=== PATIENT | female | born 1970 | race Caucasian/White ===

== ENCOUNTER 2021-06-01 17:01 | Emergency (ER) | payer BC, SELFPAY ==
[2021-06-01 17:03] VITALS: BP 152/85; PULSE 154; RESP 16; TEMP 36.4; O2SAT 96; BMI 29.5
--- NOTE | 2021-06-01 17:40 | CT_ITS ---
EXAMINATION : Head CT w/out contrast HISTORY : injury COMPARISON : None. TECHNIQUE : Multiple contiguous axial images were obtained from the skull base to the vertex without intravenous contrast. A radiation dose optimization technique was used for this scan. FINDINGS : The ventricles and sulci are normal in size. There is no evidence for acute intracranial hemorrhage, mass effect, or midline shift. There is no extra-axial fluid collection. There is normal montes de oca-white differentiation, without CT evidence of acute ischemia or infarct. The skull base and calvarium are unremarkable. The orbits are unremarkable. The paranasal sinuses are clear. The mastoid air cells are well-aerated. The soft tissues are unremarkable. CT/Brain/Head without Contrast IMPRESSION: No acute intracranial abnormality. Electronically Signed: Elie Bolaños MD at 18:02 EST Tel , Service support ,
--- NOTE | 2021-06-01 17:40 | EX.ED.DYSGE1 ---
HPI History of Present Illness Chief Complaint: Head Injury Informant: patient and EMS Onset/Context/Timing Onset: Today Narrative Narrative: Patient reportedly fell down 4-5 steps today injuring her head. She states she was carrying laundry and the dog hit her causing her to fall. She apparently was argumentative and combative with family and they were not sure if is because of head injury. She apparently does have a history of alcohol abuse and does admit to two drinks today. She states that not much for her when she normally drinks. She is irritated but states she is just upset with family for making her come in. She denies loss of consciousness. No vomiting. PFSH PFS Medical History Alcohol abuse Medical History no medical history Home Medications escitalopram oxalate [Lexapro] 10 mg PO DAILY 06/01/21 [History Last Taken Unknown] Allergy/AdvReac Type Severity Reaction Status Date / Time CATS Allergy Hives Uncoded 06/01/21 17:01 Surgical History no surgical history Social History Smoking Status: Never smoker ROS ROS ED Constitutional Constitutional ED: Denies chills or fever(s) Eyes Eyes: Denies change in vision ENT ENT ED: Denies rhinorrhea or sore throat Cardiovascular Cardiovascular: Reports racing heartbeat; Denies chest pain or palpitations Respiratory/Chest Respiratory/Chest: Denies cough or dyspnea Gastrointestinal Gastrointestinal: Denies abdominal pain or vomiting Musculoskeletal Musculoskeletal: Denies back pain or neck pain Neurologic Neurologic: Denies headache(s) Allergic/Immunologic Allergic/Immunologic ED: Denies urticaria EXAM Physical Exam Const Vital Signs: 06/01/21 17:03 06/01/21 17:07 Temperature 97.6 F L Temperature Source Temporal Pulse Rate 154 H Respiratory Rate 16 Respiratory Effort Normal Non-Labored Respiratory Pattern Normal Blood Pressure 152/85 H Blood Pressure Mean 107 Pulse Ox 96 Oxygen Delivery Method Room Air Positive well nourished and well developed General Appearance ED: well developed HEENT Reports moist mucous membranes Eyes PERRL and EOMs intact bilaterally Neck supple Chest Wall inspection of chest normal and palpation of chest normal Resp normal respiratory effort and clear to auscultation bilaterally Cardio Rate: tachycardic and other Other Details: Heart rate 123 when I enter the room. GI non-tender Palpation: soft Extremity normal to inspection Neuro oriented x3 and no sensory deficits noted Sensorium / Orientation: alert Motor Exam: strength 5/5 throughout Psych Mood & Affect: anxious Skin no rashes or lesions noted MDM MDM MDM Narrative Medical decision making narrative: Head CT obtained. Radiography Diagnostic Testing: Clinical Impression(s) from Imaging Studies Brain CT 06/01/21 17:40 IMPRESSION: No acute intracranial abnormality. Electronically Signed: Elie Bolaños MD at 18:02 EST Tel , Service support , Treatment and Re-Evaluation Comments:: Head CT reveals no acute abnormality. Patient's family is here with her. She we discharged home with family. Instructions for closed head injury provided. Return instructions given. Discharge Plan Triage Chief Complaint: Head Injury ED Provider: Raquel Angel Dx/Rx/DC Orders Clinical Impression: Fall, Closed head injury Instructions: ED Head Injury (Adult) Prescriptions: No Action escitalopram oxalate [Lexapro] 10 mg Tablet 10 mg PO DAILY RF: 0 Primary Care Provider: Juan Bird Referrals: Juan Bird MD [Primary Care Provider] - 1 Week Disposition Disposition: Home, Self Care
[2021-06-01 18:37] VITALS: BP 145/81; PULSE 112; RESP 17; O2SAT 98
== END 2021-06-01 18:39 | disposition home or self-care (01) ==
PROVIDERS: Emergency Provider Emergency Medicine; PCP Family Medicine
DX: S09.90XA Unspecified injury of head, initial encounter (principal); W10.9XXA Fall (on) (from) unspecified stairs and steps, initial encounter; Z79.899 Other long term (current) drug therapy
CPT/HCPCS: 70450; 99285; A4216

== ENCOUNTER 2021-09-27 22:02 | Emergency (ER) | payer OTHER, SELFPAY ==
[2021-09-27 22:03] VITALS: BP 131/86; PULSE 151; RESP 18; TEMP 36.6; O2SAT 99; BMI 26.5
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
[2021-09-27 22:32] LABS: Absolute Lymphocyte Count 1.95 X10^3/uL (0.83-4.51); Absolute Neutrophil Count 2.9 X10^3/uL (2.0-7.7); Basophil# 0.06 X10^3/uL; Eosinophil# 0.09 X10^3/uL; Eosinophils% 1.6 % (0-5); Hematocrit 32.4 % (37-47); Hemoglobin 9.4 g/dL (12.0-15.0); Lymphocyte # 1.95 X10^3/ul (0.83-4.51); Lymphocyte % 34.1 % (19-41); Mean Corpuscular Hgb 19.6 pg (27.0-32.0); Mean Corpuscular Volume 67.5 fL (81-99); Monocyte# 0.68 X10^3/uL; Monocyte% 11.9 % (0-10); NRBC Flagged by Analyzer 0 % (0-5); Neutrophil # 2.93 X10^3/uL (2.7-7.7); Neutrophil % 51.2 % (47-70); POSITIVE MORPHOLOGY YES; Platelet Count 332 K/mm3 (150-450); RBC Distribution Width CV 22.3 % (11.6-14.6); RBC Distribution Width SD 53.4 fl (35.1-43.9); White Blood Count 5.7 K/mm3 (4.4-11.0)
[2021-09-27 22:35] LABS: Differential Indicated SCAN CRITERIA MET
[2021-09-27 22:45] LABS: Anion Gap 12 (5-15); BUN 5 mg/dL (7-18); BUN/Creat Ratio 4.9 RATIO (10-20); Calcium,Total 8.6 mg/dL (8.5-10.1); Chloride 109 mmol/L (98-107); Creatinine, Serum 1.03 mg/dL (0.55-1.02); EST Glomerular Filtration Rate 60 mL/min (>60); Est Glom Filt Rate - Afr Amer 73 mL/min (>60); Estimated Creatinine Clearance 54.05 ml/min; Glucose 139 mg/dL (74-106); Potassium 3.7 mmol/L (3.5-5.1); Sodium Level 141 mmol/L (136-145)
[2021-09-27 22:46] LABS: Amphetamine Urine VISTA NEGATIVE (<1000 ng/mL); Barbiturate Urine VISTA NEGATIVE (< 200 ng/mL); Benzodiazepine Urine VISTA NEGATIVE (< 200 ng/mL); Cocaine Urine VISTA NEGATIVE (< 300 ng/mL); Ecstacy Urine VISTA NEGATIVE (< 500 ng/mL); Methadone Urine VISTA NEGATIVE (< 300 ng/mL); PCP Urine VISTA NEGATIVE (< 25 ng/mL); THC Urine VISTA POSITIVE (< 50 ng/mL); Vista UDS pH Range 4
[2021-09-27 22:54] LABS: Internal QC Validated? YES +Cl - CLEAR BKGD; Pregnancy, Serum, hCG Quali. NEGATIVE Negative
[2021-09-27 22:57] LABS: Anisocytosis 1+; Differential Comment SCANNED
[2021-09-28] VITALS (8 sets, daily range): BP systolic 144–164; BP diastolic 90–100; PULSE 109–117; RESP 15–24; TEMP 37.1; O2SAT 95–99
[2021-09-28] MEDS: Mag Hydrox/Al Hydrox/Simeth 30 ML UDC PO (00:32)
[2021-09-28] MEDS: Ibuprofen 600 MG Tablet PO (03:40)
[2021-09-28] MEDS: LORazepam 1 MG Tablet PO ×2 (04:30→08:11)
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
== END 2021-09-28 11:48 | disposition home or self-care (01) ==
PROVIDERS: Emergency Medicine; Emergency Provider Emergency Medicine; PCP Family Medicine; Visit Provider Emergency Medicine
DX: F10.229 Alcohol dependence with intoxication, unspecified (principal); D50.9 Iron deficiency anemia, unspecified; Y90.0 Blood alcohol level of less than 20 mg/100 ml
CPT/HCPCS: 80048; 80307; 82077; 84703; 85025; 99283

== ENCOUNTER 2021-10-22 15:30 | Outpatient (RCR) | payer OTHER, SELFPAY ==
--- NOTE | 2021-10-06 15:37 | HP.PTEVAL ---
Patient's Visit Information CONSTANCE BIRMINGHAM is a 51 year old F referred to Physical Therapy by Dr. Juan Bird MD with a diagnosis of B shoulder pain. Date of Evaluation: 10/06/21 Physical Therapist: José Miguel Gallo, PT, ATC - Visit Plan Frequency: 2-3x /Week Duration: 4 Weeks Plan: postural edu, RRIS, DTR, scap stab ex's, and HEP. May trial C Tx if no better next Rx - Subjective Pt reports her L shoulder has been sore for approximately 6 weeks. Pt reports she was arm wrestling at that time when she experienced severe shoulder pain. Pt notes she has had scoliosis her whole life and have always had L shoulder pain. Pt notes she is R hand dominant. Pt reports she felt a popping sensation is her L shoulder when she injured her shoulder. Pt denies tingling or numbness in L UE, but does report numbness in her L pinky and ring fingers since experiencing this injury. Pt reports difficulty with sleep at this time secondary to pain. Pt reports her pain is intermittent in nature and no specific movement results in increased pain. 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 L shoulder pain 6/10 at rest, 9/10 when her pain is at its worst: - Pain L shoulder Pain Intensity (Out of 10): 6 Pain Intensity Range: 9 - Objective Neuro: B UE sensation is WNL to light touch. B bicipital reflex= 2/3. Palpation: Pt has a little pain on L shoulder. Sig muscle guarding in upper trap and interscap region. No obvious deformity. ROM: R shoulder flex= 180, abd= 180, ER= 40, IR WNL; L shoulder flex= 180, abd= 180, ER= 0, IR WNL. MMT: B UE's are 5/5 throughout. c/s ROM: Pt is moderately limited with L SB and Rot, and c/s retraction. All other movements are WFL. Repeated movements: RPIS peripheralized sx's into L shoulder and interscap region. RRIS decreased pain. Special tests: pos cervical compression test - Balance/Special Test Scores Quick DASH Score: 40.9075 - Goals Goal 1:: Decrease neck pain x 50% to aid with sleep Goal Time Frame: 4-6 Weeks Goal 2:: Increase c/s retraction ROM x 1 grade to aid with decreasing pain Goal Time Frame: 4-6 Weeks Goal 3:: Decrease interscap radiculopathy x 50% to aid with sleep Goal 4:: I with HEP Goal Time Frame: 4-6 Weeks - Rehabilitation Potential Physical Therapy Diagnosis: Pt has neck pain, sig muscle guarding, and limited c/s ROM secondary to c/s disc derrangement Rehabilitation Potential: Good - Anticipated Interventions Patient/Client Instruction: Educate patient on: Condition, Plan of Care For the Purpose of:: To decrease pain, To increase ROM, To improve muscle performance and motor function Therapeutic Exercise to Include: Strength training, Endurance training, Postural training, Flexibilty training, Active ROM, Scapular Strength/Stabilization For the Purpose of:: To decrease pain, To increase ROM, To improve muscle performance and motor function Cryotherapy (ice pack, ice massage): Yes For the Purpose of:: To decrease pain, To increase ROM, To improve muscle performance and motor function Thank you for the opportunity to evaluate your patient. For Medicare and Medicare HMO plans, please review the plan of care and approve it. It will need to be FAXED BACK to us at [phone] for Medicare purposes. For Medicare only, by signing this I certify the plan of care. Please let me know if there are questions or concerns regarding this plan of care. Physician Signature: Date:
--- NOTE | 2022-02-23 13:17 | HP.PT.NRP ---
CONSTANCE BIRMINGHAM was seen in my office for initial evaluation on 10/06/21. The following Plan of Care was established for this patient: Initial Frequency: 2-3x /Week Initial Duration: 4 Weeks Patient/Client Instruction: Educate patient on: Condition, Plan of Care For the Purpose of:: To decrease pain, To increase ROM, To improve muscle performance and motor function Therapeutic Exercise to Include: Strength training, Endurance training, Postural training, Flexibilty training, Active ROM, Scapular Strength/Stabilization For the Purpose of:: To decrease pain, To increase ROM, To improve muscle performance and motor function Cryotherapy (ice pack, ice massage): Yes For the Purpose of:: To decrease pain, To increase ROM, To improve muscle performance and motor function This patient was last seen in our office . Pertinent comments regarding their Physical therapy will appear below: Pt was treated for B shoulder pain for 5 PT visits through the date of 10/22/21. Pt has not returned through todays date and is discontinued at this time. At this point I will be discontinuing this patient from physical therapy. I would be happy to see this patient again in the future if found appropriate by the physician. Thank you! José Miguel Gallo, PT, ATC Balance/Gait/Functional tests - Balance/Special Test Scores Quick DASH Score: 40.9075
== END 2021-10-22 19:00 | disposition home or self-care (01) ==
LOC: PT 15:30
PROVIDERS: PCP Family Medicine; Referring Provider Family Medicine; Visit Provider Family Medicine
DX: M25.511 Pain in right shoulder (principal); M25.512 Pain in left shoulder
CPT/HCPCS: 97012; 97140; 97161

== ENCOUNTER 2022-02-25 10:51 | Emergency (ER) | payer OTHER, SELFPAY ==
[2022-02-25 10:52] VITALS: BP 146/96; PULSE 103; RESP 18; TEMP 36.3; O2SAT 100; BMI 33.5
--- NOTE | 2022-02-25 12:20 | EDS_ITS ---
HPI History of Present Illness Chief Complaint: Headache Narrative Narrative: Patient with past medical history of migraine headaches presents to the emergency department with a migraine headache that began yesterday. She states she has tried her medication for it including Tylenol and ibuprofen, but she has had nausea and vomiting and right-sided headache that is typical of her previous migraines. She does not see a neurologist, however she states that she has been worked up with head CTs and imaging in June of this year. She currently rates her pain between a 6 and an 8. It was 8 when she came in but may have come down a bit. She states she needs a break from this constant headache. The right side of her head feels tight including her neck. She denies any fevers or chills. She has vomited multiple times without any blood in her emesis. She denies any paresthesias. She endorses photophobia, phonophobia, and smells make it worse. [facility] Medical History (Updated 02/25/22 @ 14:10 by Terence Blanton MD) Alcohol abuse Migraine Allergy/AdvReac Type Severity Reaction Status Date / Time bee venom protein (honey bee) Allergy Anaphylaxis Verified 02/25/22 10:52 CATS Allergy Hives Uncoded 02/25/22 10:52 Social History Smoking Status: Never smoker ROS ROS ED ROS Narrative Constitutional: No fever, no chills. HEENT: No sore throat. No neck pain. No loss of vision. No rhinorrhea. Cardiovascular: No chest pain. No palpitations. No pedal edema. Respiratory: No cough, no shortness of breath. Abdominal: No abdominal pain. Positive nausea. Multiple episodes of nonbloody vomiting. Genitourinary: No dysuria. No hematuria. Musculoskeletal: No myalgias. No arthralgias. Neurologic: Right-sided headaches with neck tightness typical of previous migraines. No dizziness. No lightheadedness. No paresthesias. Skin: No rash. No change in color. Psychiatric: No depression. No anxiety. EXAM Physical Exam Narrative Exam Narrative: Afebrile. Vital signs noted. HEENT: Normocephalic. Atraumatic. PERRL, EOMI. Neck soft and supple. No point tenderness or step off. Cardiovascular: Regular rate and rhythm with intermittent tachycardia. No murmurs, rubs, or gallops appreciated. Respiratory: No tachypnea. Lungs clear to auscultation bilaterally. Gastrointestinal: Abdomen soft, nontender, with normoactive bowel sounds. No rebound or guarding. Neurological: Awake. Alert. Nonfocal, nonlateralizing. Skin: No rash. Normal color. No pallor. Musculoskeletal: No pedal edema. Full range of motion extremities. Const Vital Signs: 02/25/22 10:52 02/25/22 13:16 Temperature 97.4 F L Temperature Source Temporal Pulse Rate 103 H 69 Respiratory Rate 18 20 H Blood Pressure 146/96 H 135/91 H Blood Pressure Mean 112 105 Pulse Ox 100 97 Oxygen Delivery Method Room Air Room Air MDM MDM MDM Narrative Medical decision making narrative: I do feel that the patient is having exacerbation of her chronic migraines. She was administered a bolus of normal saline 1 L intravenously along with Benadryl 25 mg intravenously, Compazine 10 mg intravenously, and Toradol 15 mg intravenously. She initially rated her headache around 6 or 7. It is almost gone and she rates it at 1 after her medications. She would like to be discharged. She will follow-up with her primary care physician for possible referral to neurology or requiring of maintenance medications as she states she gets migraine headaches once a month. Return instructions were reviewed. Disposition is discharged home in stable condition. Discharge Plan Triage Chief Complaint: Headache ED Provider: Terence Blanton Dx/Rx/DC Orders Clinical Impression: Migraine headache, Nausea & vomiting Instructions: ED, Migraine (Classical) Primary Care Provider: Juan Bird Referrals: Juan Bird MD [Primary Care Provider] - 3-5 Days if not improving Activity Restrictions/Additional Instructions: You received IV fluids, Compazine, Benadryl, and Toradol today for your migraine headache. Rest today and follow-up with your primary care physician. Disposition Disposition: Home, Self Care
[2022-02-25] MEDS: Ketorolac 15 MG/ML Vial IV (12:31)
[2022-02-25] MEDS: DiphenhydrAMINE 50 MG/ML Syringe 25 MG IV (12:32)
[2022-02-25] MEDS: proCHLORPERazine 10 MG/2 ML Vial IV (12:35)
[2022-02-25] MEDS: 0.9% Normal Saline 1,000 ML 999 ML IV (12:36)
[2022-02-25 13:16] VITALS: BP 135/91; PULSE 69; RESP 20; O2SAT 97
[2022-02-25 14:17] VITALS: PULSE 72; RESP 18; O2SAT 97
== END 2022-02-25 14:21 | disposition home or self-care (01) ==
PROVIDERS: Emergency Provider Emergency Medicine; PCP Family Medicine; Visit Provider Emergency Medicine
DX: G43.909 Migraine, unspecified, not intractable, without status migrainosus (principal); R11.2 Nausea with vomiting, unspecified; F10.10 Alcohol abuse, uncomplicated
CPT/HCPCS: 96374; 96375; 99283; J7030; A4216

== ENCOUNTER 2022-12-09 10:30 | Outpatient (RCR) | payer OTHER, SELFPAY ==
--- NOTE | 2022-10-13 08:09 | HP.PTEVAL ---
Patient's Visit Information CONSTANCE BIRMINGHAM is a 52 year old F referred to Physical Therapy by Dr. Juan Bird MD with a diagnosis of Neck and headache pain. Date of Evaluation: 10/13/22 Physical Therapist: José Miguel Gallo PT, ATC - Visit Plan Frequency: 2-3x /Week Duration: 4-6 Weeks Plan: Postural edu, RRIS, DTR, mobilizations, and HEP - Subjective Pt reports she has had intermittent headaches for over 5 years. Pt notes she has been treated for migraines by IV drips in the ER for this on occasions. Pt reports she believes her headaches are caused by tightness in her neck, most notably on the right side of her neck. Pt reports she has had therapy in the past, and notes that PT was able to take away a lot of her pain. Pt notes she has sleep difficulty secondary to neck and R shoulder pain. Pt reports she has had no xrays taken on her neck at this time. Pt denies any tingling or numbness in UE's other than her L hand which will occasionally go numb if she sleeps on her L side. Pt reports she gets increased neck pains with reading and driving. 3/10 pain at rest, 8/10 pain at worst. - Pain neck and headache Pain Intensity (Out of 10): 3 Pain Intensity Range: 8 - Objective Neuro: B UE sensation is within normal limits to light touch with exception to L thenar eminence which is hyposensitive. B bicipital reflex= 2/3. Palpation: Pt has significant guarding theoughout her neck and shoulders. ROM: Pt is moderately limited with B sidebending, and cervical spine retraction. All other ranges are WNL. MMT: B UE's 5/5 throughout. Repeated movements: NE - Balance/Special Test Scores Oswestry Neck Score: 11 - Goals Goal 1:: Decrease neck pain x 50% to aid with sleep Goal Time Frame: 4-6 Weeks Goal 2:: Decrease the frequency and intensity of headaches x 50% to aid with IADL's Goal Time Frame: 4-6 Weeks Goal 3:: Pt will verbally and physically display proper posture in order to prevent future episodes no neck and headache pain Goal Time Frame: 4-6 Weeks Goal 4:: I with HEP Goal Time Frame: 4-6 Weeks - Rehabilitation Potential Physical Therapy Diagnosis: Pt has neck pain, occasional headaches, and trouble with sleep secondary to poor postural awareness Rehabilitation Potential: Good - Anticipated Interventions Patient/Client Instruction: Educate patient on: Condition, Plan of Care For the Purpose of:: To improve self management Therapeutic Exercise to Include: Strength training, Postural training, Scapular Strength/Stabilization For the Purpose of:: To decrease pain, To improve muscle performance and motor function Manual Therapy Techniques to Include: Soft tissue mobilization For the Purpose of:: To decrease pain Thank you for the opportunity to evaluate your patient. For Medicare and Medicare HMO plans, please review the plan of care and approve it. It will need to be FAXED BACK to us at [phone] for Medicare purposes. For Medicare only, by signing this I certify the plan of care. Please let me know if there are questions or concerns regarding this plan of care. Physician Signature: Date:
--- NOTE | 2023-04-13 14:22 | HP.PT.NRP ---
Patient Information Patient Information: CONSTANCE BIRMINGHAM was seen in my office for initial evaluation on 10/13/22. The following Plan of Care was established for this patient: POC Established Initial Frequency: 2-3x /Week Initial Duration: 4-6 Weeks Anticipated Interventions Patient/Client Instruction: Educate patient on: Condition and Plan of Care For the Purpose of:: To improve self management Therapeutic Exercise to Include: Strength training, Postural training and Scapular Strength/Stabilization For the Purpose of:: To decrease pain and To improve muscle performance and motor function Manual Therapy Techniques to Include: Soft tissue mobilization For the Purpose of:: To decrease pain Last Seen Last Seen: This patient was last seen in our office . Pertinent comments regarding their Physical therapy will appear below: Pt returns today with a new script for R shoulder and neck pain after suffering a fall 4 mos ago. This chart will be discharged and a new chart will initiated. At this point I will be discontinuing this patient from physical therapy. I would be happy to see this patient again in the future if found appropriate by the physician. Thank you! José Miguel Gallo, PT, ATC Balance/Gait/Functional tests Balance/Special Test Scores Oswestry Neck Score: 11
== END 2022-12-09 19:00 | disposition home or self-care (01) ==
LOC: PT 10:30
PROVIDERS: PCP Family Medicine; Referring Provider Family Medicine; Visit Provider Family Medicine
DX: G43.909 Migraine, unspecified, not intractable, without status migrainosus (principal); G44.209 Tension-type headache, unspecified, not intractable
CPT/HCPCS: 97140; 97161

== ENCOUNTER 2023-09-07 15:00 | Outpatient (RCR) | payer OTHER, SELFPAY ==
--- NOTE | 2023-07-13 09:32 | HP.PTEVAL_ITS ---
Patient's Visit Information Visit Information Visit Information: CONSTANCE BIRMINGHAM is a 53 year old F referred to Physical Therapy by Dr. Juan Bird MD with a diagnosis of Neck pain/ Headaches. Date of Evaluation: 07/13/23 Physical Therapist: José Miguel Gallo, PT, ATC Visit Plan Frequency: 2x /Week Duration: 4-6 Weeks Plan: Postural edu, DTR, scap stab ex's, L shoulder strengthening, UBE, and HEP Subjective Subjective: Pt reports she has had neck pain for greater than 2 years. Pt has had physical therapy intermittently throughout, which has really helped, but has experienced set backs between secondary to health issues. Pt reports she has had massage as well that helps to decrease her pain. Pt notes she has been treated for migraines by IV drips in the ER for this on occasions. Pt reports she believes her headaches are caused by tightness in her neck, most notably on the left side of her neck. Pt notes she has sleep difficulty secondary to neck and L shoulder pain. Pt reports she has had a cat scan on her neck which revealed no brain bleed. Pt reports intermittent tingling and numbness in UE's in her R hand, and in the L hand which will occasionally go numb if she sleeps on her L side. Pt reports she gets increased neck pains with reading and driving. 3/10 pain at rest, 10/10 pain at worst. Pain Neck pain: Pain Intensity (Out of 10): 3 Pain Intensity Range: 10 Objective Objective: Neuro: L C6-7 is hyposensitive to light touch. All other B UE sensation is WNL to light touch. B bicipital reflex= 2/3 Palpation: Significant muscle guarding in L upper trap and throughout c/s paraspinals ROM: Pt is severely limited with B SB, and moderately limited with retraction and extension. All other motions are WNL. MMT: R UE is 5/5 throughout. L UE is 4/5 throughout. Balance/Special Test Scores Oswestry Neck Score: 11 Goals Goal 1:: Decrease neck pain x 50% to aid with sleep Goal Time Frame: 4-6 Weeks Goal 2:: Increase cervical spine ROM to WNL to aid with driving Goal Time Frame: 4-6 Weeks Goal 3:: Increase L UE strength x 1 grade to aid with IADL's Goal Time Frame: 4-6 Weeks Goal 4:: I with HEP Goal Time Frame: 4-6 Weeks Rehabilitation Potential Physical Therapy Diagnosis: Pt has neck pain, limited c/s ROM, and headaches secondary to degenerative changes in the c/s Rehabilitation Potential: Good Anticipated Interventions Patient/Client Instruction: Educate patient on: Condition and Plan of Care For the Purpose of:: To improve self management Therapeutic Exercise to Include: Strength training, Postural training, Active ROM and Scapular Strength/Stabilization For the Purpose of:: To decrease pain, To increase ROM and To improve muscle performance and motor function Manual Therapy Techniques to Include: Soft tissue mobilization For the Purpose of:: To decrease pain and To increase ROM Text: Thank you for the opportunity to evaluate your patient. For Medicare and Medicare HMO plans, please review the plan of care and approve it. It will need to be FAXED BACK to us at [phone] for Medicare purposes. For Medicare only, by signing this I certify the plan of care. Please let me know if there are questions or concerns regarding this plan of care. Physician Signature:__ Date:
--- NOTE | 2023-11-02 15:26 | HP.PT.NRP ---
Patient Information Patient Information: CONSTANCE BIRMINGHAM was seen in my office for initial evaluation on 07/13/23. The following Plan of Care was established for this patient: POC Established Initial Frequency: 2x /Week Initial Duration: 4-6 Weeks Anticipated Interventions Patient/Client Instruction: Educate patient on: Condition and Plan of Care For the Purpose of:: To improve self management Therapeutic Exercise to Include: Strength training, Postural training, Active ROM and Scapular Strength/Stabilization For the Purpose of:: To decrease pain, To increase ROM and To improve muscle performance and motor function Manual Therapy Techniques to Include: Soft tissue mobilization For the Purpose of:: To decrease pain and To increase ROM Last Seen Last Seen: This patient was last seen in our office 09/07/23. Pertinent comments regarding their Physical therapy will appear below: Pt. was seen for her LAMA and muscle tension. She did not show up to her last two appt. and has not been seen in ~6 weeks. Pt. will be DC from PT at this point in time. At this point I will be discontinuing this patient from physical therapy. I would be happy to see this patient again in the future if found appropriate by the physician. Thank you! Matt Blount, DANNYT Balance/Gait/Functional tests Balance/Special Test Scores Oswestry Neck Score: 11
== END 2023-09-07 19:00 | disposition home or self-care (01) ==
LOC: PT 15:00
PROVIDERS: PCP Family Medicine; Referring Provider Family Medicine; Visit Provider Family Medicine
DX: G43.909 Migraine, unspecified, not intractable, without status migrainosus (principal); G44.209 Tension-type headache, unspecified, not intractable
CPT/HCPCS: 97140; 97161

== ENCOUNTER 2024-05-07 15:30 | Outpatient (RCR) | payer OTHER, SELFPAY ==
--- NOTE | 2024-02-01 11:05 | HP.PTEVAL ---
Patient's Visit Information Visit Information Visit Information: CONSTANCE BIRMINGHAM is a 53 year old F referred to Physical Therapy by Dr. Juan Bird MD with a diagnosis of LAMA. Date of Evaluation: 02/01/24 Physical Therapist: José Miguel Gallo, PT, ATC Visit Plan Frequency: 2x /Week Duration: 4-6 Weeks Plan: Postural education, RRIS, DTR, mobs, scap strengthening, and HEP Subjective Subjective: Pt reports she has had LAMA and neck pain for many years. Pt reports she has had PT in the past which always has helped. Pt notes she is not always good at following up with her HEP. Pt notes she is on the phone and her computer a lot, and those are the positions that tend to increase her pain. Pt notes she has also been diagnosed with TMJ, which she has been given a private security guard to aid with. Pt reports she has tingling in her L UE with originates in the elbow region and extends to her fingers. Pt reports occasional sleep difficulty secondary to neck pain. Pt reports she will occasionally get dizzy when she looks quickly to her R. 4/10 pain while sitting here in the clinic, 6/10 pain at worst Pain Neck pain: Pain Intensity (Out of 10): 4 Pain Intensity Range: 6 Objective Objective: Neuro: B UE sensation is WNL to light touch. Hand is hyposensitive to light touch. Palpation: Pt has significant muscle guarding on R paraspinals, sub occip, and scalene muscle groups MMT: B UE's are strong and equal when compared bilaterally ROM: Pt is moderately limited with side bending, retraction, and extension. other motions are WNL Repeated movements: RRIS 10x2 NE. RFIS x 10 peripheralizes sx's to scap region Balance/Special Test Scores Oswestry Neck Score: 35 Goals Goal 1:: Decrease cervical spine pain x 50% to aid with sleep Goal Time Frame: 4-6 Weeks Goal 2:: Increase cervical spine ROM x 1 grade to aid with driving Goal Time Frame: 4-6 Weeks Goal 3:: Decrease R UE radiculopathy x 50% to aid with IADL's Goal Time Frame: 4-6 Weeks Goal 4:: I with HEP Goal Time Frame: 4-6 Weeks Rehabilitation Potential Physical Therapy Diagnosis: Pt has headaches, neck pain, and limited cervical spine ROM secondary to c/s disc derrangement Rehabilitation Potential: Good Anticipated Interventions Patient/Client Instruction: Educate patient on: Condition and Plan of Care For the Purpose of:: To improve self management Therapeutic Exercise to Include: Strength training, Passive ROM, Active ROM, Allyssa Exercises and Scapular Strength/Stabilization For the Purpose of:: To decrease pain, To increase ROM and To improve muscle performance and motor function Manual Therapy Techniques to Include: Mobilization and Soft tissue mobilization For the Purpose of:: To decrease pain and To increase ROM Text: Thank you for the opportunity to evaluate your patient. For Medicare and Medicare HMO plans, please review the plan of care and approve it. It will need to be FAXED BACK to us at [phone] for Medicare purposes. For Medicare only, by signing this I certify the plan of care. Please let me know if there are questions or concerns regarding this plan of care. Physician Signature: Date:
--- NOTE | 2024-07-13 12:37 | HP.PT.NRP ---
Patient Information Patient Information: CONSTANCE BIRMINGHAM was seen in my office for initial evaluation on 02/01/24. The following Plan of Care was established for this patient: POC Established Initial Frequency: 2x /Week Initial Duration: 4-6 Weeks Anticipated Interventions Patient/Client Instruction: Educate patient on: Condition and Plan of Care For the Purpose of:: To improve self management Therapeutic Exercise to Include: Strength training, Passive ROM, Active ROM, Allyssa Exercises and Scapular Strength/Stabilization For the Purpose of:: To decrease pain, To increase ROM and To improve muscle performance and motor function Manual Therapy Techniques to Include: Mobilization and Soft tissue mobilization For the Purpose of:: To decrease pain and To increase ROM Last Seen Last Seen: This patient was last seen in our office . Pertinent comments regarding their Physical therapy will appear below: Pt has not returned through todays date for 30 days and is discontinued at this time. At this point I will be discontinuing this patient from physical therapy. I would be happy to see this patient again in the future if found appropriate by the physician. Thank you! José Miguel Gallo, PT, ATC Balance/Gait/Functional tests Balance/Special Test Scores Oswestry Neck Score: 35
== END 2024-05-07 19:00 | disposition home or self-care (01) ==
LOC: PT 15:30
PROVIDERS: PCP Family Medicine; Referring Provider Family Medicine; Visit Provider Family Medicine
DX: G44.209 Tension-type headache, unspecified, not intractable (principal); G43.909 Migraine, unspecified, not intractable, without status migrainosus
CPT/HCPCS: 97140; 97161; 97530

== ENCOUNTER 2024-05-21 06:14 | Emergency (ER) | payer OTHER, SELFPAY ==
[2024-05-21 06:16] VITALS: BP 189/125; PULSE 134; RESP 16; TEMP 37.1; O2SAT 97; BMI 33.0
[2024-05-21 06:28] VITALS: BP 176/108
--- NOTE | 2024-05-21 06:44 | EDS_ITS ---
HPI History of Present Illness Chief Complaint: Complaint Informant: patient Narrative Narrative: Patient is a 54-year-old female with past medical history of migraine. She states over the last 7 to 10 days she has been having urinary frequency urgency and dysuria. She states that she has been trying to flush her system and for a few days she felt like she was better. However symptoms returned and then she developed back pain and this concerned her for a kidney infection. Secondary to the persistent and now worsening symptoms she presents for evaluation. Patient denies any loss of bowel bladder control or IV drug use. She states has been no excessive activity or trauma prior to the pain beginning PFSH PFSH Medical History Migraine Alcohol abuse Home Medications ?Medication ?Instructions ?Recorded ?Last Taken ?Type ondansetron 4 mg disintegrating 4 mg PO TID PRN nausea and 05/21/24 Unknown Rx tablet vomiting #21 tabs oxycodone-acetaminophen 5 mg-325 1 tab PO Q6H PRN pain 3 days #12 05/21/24 Unknown Rx mg tablet (Percocet) tabs pantoprazole 20 mg tablet,delayed 20 mg PO DAILY 05/21/24 Unknown History release phenazopyridine 200 mg tablet 200 mg PO TID 2 days #6 tabs 05/21/24 Unknown Rx (Pyridium) sulfamethoxazole 800 1 tab PO BID 7 days #14 tabs 05/21/24 Unknown Rx mg-trimethoprim 160 mg tablet (Bactrim DS) Allergy/AdvReac Type Severity Reaction Status Date / Time bee venom protein (honey bee) Allergy Anaphylaxis Verified 02/25/22 10:52 cat dander (cats) Allergy Hives Verified 03/17/22 14:30 Social History Smoking Status: Never smoker ROS ROS ED Constitutional Constitutional ED: Denies chills or fever(s) Eyes Eyes: Denies change in vision ENT ENT ED: Denies sore throat Cardiovascular Cardiovascular: Reports racing heartbeat; Denies chest pain Respiratory/Chest Respiratory/Chest: Denies cough or dyspnea Gastrointestinal Gastrointestinal: Reports abdominal pain and nausea; Denies diarrhea or vomiting Genitourinary Genitourinary ED: Reports dysuria and urinary frequency Musculoskeletal Musculoskeletal: Reports back pain Integumentary Denies rash Neurologic Neurologic: Denies headache(s) Psychiatric Psychiatric: Reports anxiety Hematologic/Lymphatic Hematologic/Lymphatic: Denies easy bleeding or easy bruising EXAM Physical Exam Const Vital Signs: 05/21/24 06:16 05/21/24 06:28 05/21/24 07:19 Temperature 98.7 F 98 F Temperature Source Oral Oral Pulse Rate 134 H 89 Respiratory Rate 16 16 Blood Pressure 189/125 H 176/108 H 161/141 H Blood Pressure Mean 146 130 147 Pulse Ox 97 98 Oxygen Delivery Method Room Air Positive well nourished and well developed General Appearance ED: well developed; Negative for pallor HEENT HEENT Narrative: Normocephalic atraumatic Eyes PERRL and EOMs intact bilaterally General Eye ED: Negative for scleral icterus Neck supple Resp normal respiratory effort and clear to auscultation bilaterally Cardio regular rhythm Rate: tachycardic and other Other Details: Tachycardic rate with regular rhythm No murmurs rubs or gallop Radial and carotid pulses are equal and symmetric GI non-distended and no masses GI Narrative: Abdomen is soft and nondistended with normal active bowel sounds. Patient has pain with palpation in the suprapubic region without voluntary guarding or rigidity. No pulsatile mass or fluid wave. No organomegaly noted to suggest urinary retention. Auscultation: normoactive bowel sounds Palpation: soft Back/Spine no CVA tenderness Back/Spine Narrative: No CVA pain noted. Patient does have pain across the lower back bilaterally No overlying soft tissue changes to suggest trauma or infection No bony deformity or step-off of the thoracic or lumbar spine and no midline tenderness to palpation Extremity normal to inspection Extremity Narrative: No asymmetric edema no pitting edema negative Homans' sign bilaterally Neuro oriented x3, CN's II-XII intact bilaterally and no sensory deficits noted Sensorium / Orientation: alert Motor Exam: strength 5/5 throughout Psych Mood & Affect: anxious Skin no rashes or lesions noted General Skin Exam: Negative for jaundice or pallor MDM MDM Lab Data Labs: Laboratory Results - last 24 hr 05/21/24 06:35 WBC 9.1 RBC 4.99 Hgb 12.9 Hct 40.4 MCV 81.0 MCH 25.9 L MCHC 31.9 L RDW Std Deviation 57.0 H RDW Coeff of Prudencio 19.8 H Plt Count 152 MPV 9.2 Immature Gran % (Auto) 0.400 Neut % (Auto) 71.2 H Lymph % (Auto) 19.8 [place] % (Auto) 5.9 Eos % (Auto) 2.0 Baso % (Auto) 0.7 Absolute Neuts (auto) 6.5 Absolute Lymphs (auto) 1.80 Nucleated RBC % 0 Sodium 130 L Potassium 3.4 L Chloride 96 L Carbon Dioxide 20.0 L Anion Gap 14 BUN 11 Creatinine 1.44 H Estim Creat Clear Calc 48.29 Est GFR (MDRD) Af Amer 49 L Est GFR (MDRD) Non-Af 41 L BUN/Creatinine Ratio 7.6 L Glucose 147 H Calcium 10.1 Urine Color Yellow Urine Clarity Sl. Cloudy Urine pH 7.0 Ur Specific [place] 1.010 Urine Protein 100 H Urine Glucose (UA) Normal Urine Ketones 5 H Urine Occult Blood 25 H Urine Nitrite Negative Urine Bilirubin 1 H Urine Urobilinogen 4 H Ur Leukocyte Esterase 500 H Urine RBC 0-5 SEEN Urine WBC 10-25 SEEN Ur Squamous Epith Cells 5-10 SEEN Urine Bacteria 1+ Urine Mucus 0 SEEN Discharge Plan Triage Chief Complaint: Complaint ED Provider: Aunj Bello Dx/Rx/DC Orders Clinical Impression: Pyelonephritis, History of migraine headaches Instructions: ED Pyelonephritis, Female (Adult) Prescriptions: New sulfamethoxazole-trimethoprim [Bactrim DS] 800-160 mg tablet 1 tab PO BID 7 Days Qty: 14 0RF ondansetron 4 mg tablet,disintegrating 4 mg PO TID PRN (Reason: nausea and vomiting) Qty: 21 0RF phenazopyridine [Pyridium] 200 mg tablet 200 mg PO TID 2 Days Qty: 6 0RF oxycodone-acetaminophen [Percocet] 5-325 mg tablet 1 tab PO Q6H PRN (Reason: pain) 3 Days Qty: 12 0RF No Action pantoprazole 20 mg tablet,delayed release (DR/EC) 20 mg PO DAILY Primary Care Provider: Juan Bird Referrals: Juan Bird MD [Primary Care Provider] - Activity Restrictions/Additional Instructions: Your urine sample today showed changes consistent with UTI and with your back pain there is concern for developing pyelonephritis/kidney infection. However you do not have signs of kidney damage or systemic infection and therefore this can be treated with oral antibiotic. Take the medication as directed to resolve your infection and return to the ER should you have any further concerns Print Language: Maori Disposition Disposition: Home, Self Care
[2024-05-21 06:46] LABS: Mucous, Urine 0 SEEN /hpf (<or=2+)
[2024-05-21 06:49] LABS: Absolute Neutrophil Count 6.5 X10^3/uL (2.0-7.7); Basophil# 0.06 X10^3/uL; Basophil% 0.7 % (0-1); Eosinophil# 0.18 X10^3/uL; Hematocrit 40.4 % (37-47); Hemoglobin 12.9 g/dL (12.0-15.0); Lymphocyte % 19.8 % (19-41); Mean Corp Hgb Conc 31.9 g/dL (32-36); Mean Corpuscular Hgb 25.9 pg (27.0-32.0); Mean Platelet Vol. 9.2 fl (6.2-12.0); Monocyte# 0.54 X10^3/uL; Monocyte% 5.9 % (0-10); NRBC Flagged by Analyzer 0 % (0-5); Neutrophil # 6.46 X10^3/uL (2.7-7.7); Neutrophil % 71.2 % (47-70); Platelet Count 152 K/mm3 (150-450); RBC Distribution Width CV 19.8 % (11.6-14.6); Red Blood Count 4.99 M/mm3 (4.2-5.4); White Blood Count 9.1 K/mm3 (4.4-11.0)
[2024-05-21 07:02] LABS: Anion Gap 14 (5-15); BUN 11 mg/dL (7-18); BUN/Creat Ratio 7.6 RATIO (10-20); Calcium,Total 10.1 mg/dL (8.5-10.1); Chloride 96 mmol/L (98-107); Creatinine, Serum 1.44 mg/dL (0.55-1.02); EST Glomerular Filtration Rate 41 mL/min (>60); Est Glom Filt Rate - Afr Amer 49 mL/min (>60); Estimated Creatinine Clearance 48.29 ml/min; Glucose 147 mg/dL (74-106); Potassium 3.4 mmol/L (3.5-5.1); Sodium Level 130 mmol/L (136-145)
[2024-05-21] MEDS: 0.9% Normal Saline (1000mL) 1,000 ML 999 ML IV (07:04)
[2024-05-21] MEDS: DiphenhydrAMINE 50 MG/ML Syringe 25 MG IV (07:04)
[2024-05-21 07:05] LABS: Color, Urine Yellow (Yellow); Glucose, Dipstick Normal (Normal); Ketone-Dipstick 5 mg/dl (Negative); Leukocyte Esterase-Dipstick 500 /ul (Negative); Nitrite-Dipstick Negative (Negative); Occult Blood-Urine 25 /ul (Negative); Protein-Dipstick 100 mg/dl (Negative); Urine Clarity Sl. Cloudy (Clear); Urine Urobilinogen 4 mg/dl (Normal)
[2024-05-21] MEDS: Ketorolac 30 MG/ML Syringe IV (07:05)
[2024-05-21] MEDS: Phenazopyridine 95 MG Tablet 190 MG PO (07:07)
[2024-05-21 07:11] LABS: Urine Bilirubin Dipstick 1 mg/dL (Negative)
[2024-05-21 07:19] VITALS: BP 161/141; PULSE 89; RESP 16; TEMP 36.6; O2SAT 98
[2024-05-21 07:20] LABS: Bacteria 1+ /hpf (None Seen); Red Blood Cells-Urine 0-5 SEEN /hpf (0-5); Squamous Epithelial Cells - UA 5-10 SEEN /hpf (5-10); White Blood Cells 10-25 SEEN /hpf (0-5)
[2024-05-21] MEDS: Ceftriaxone 1 GM/50 ML BAG IV (07:34)
[2024-05-21 08:15] VITALS: BP 154/84; BP 154/89; PULSE 84; RESP 16; TEMP 36.6; O2SAT 99
== END 2024-05-21 08:19 | disposition home or self-care (01) ==
PROVIDERS: Emergency Provider Emergency Medicine; PCP Family Medicine; Visit Provider Emergency Medicine
DX: N12 Tubulo-interstitial nephritis, not specified as acute or chronic (principal); G43.909 Migraine, unspecified, not intractable, without status migrainosus
CPT/HCPCS: 80048; 81001; 85025; 87086; 87088; 96365; 96375; 99283

== ENCOUNTER → 2025-02-01 | Outpatient (CLI) | payer BC, SELFPAY ==
--- NOTE | 2025-02-01 07:29 | BI_ITS ---
EXAM: SCRN MAMM (CAD)W/KEL BILAT DATE: 02/01/2025 CLINICAL HISTORY: F, Age 54 y/o , SCREENING Sister with breast cancer. TECHNIQUE: Procedure Code: [id number] Modality: MG Procedure: SCRN MAMM (CAD)W/KEL BILAT COMPARISON: Prior exam(s) dated May 03, 2022.. FINDINGS: TISSUE DENSITY: The breasts are extremely dense, which lowers the sensitivity of mammography. Bilateral Breast Mammographic Findings: No significant masses, calcifications or other abnormalities are identified. No suspicious masses, areas of developing architectural distortion, or suspicious calcifications. There has been no significant interval change. BI/SCRN MAMM (CAD)W/KLE BILAT IMPRESSION: Stable bilateral screening mammogram. OVERALL FINAL ASSESSMENT BI-RADS 1: NEGATIVE. RECOMMENDATION: Routine annual follow-up in 1 Year A letter with findings and recommendations will be mailed to the patient. Reading Location: [id number]
--- OUTSIDE RECORDS SUMMARY | 2025-02-01 07:29 | XMS RPT_ITS | CCD ---
Author Organization [facility] Care Team Providers Care Life Manager Name Role Phone AMEYA MICHAEL Unavailable Unavailable AMEYA MICHAEL Unavailable Unavailable Juan Meza MD Primary Care Provider Susana REIS, Juan Champion Primary Care Provider Juan Meza MD Primary Care Provider Susana REIS, Juan Champion Primary Care Provider Juan Meza MD Primary Care Provider Juan Meza MD Primary Care Provider [phone] Daisy TAYLOR.Faith FOSTER Unavailable Christine Lovell PA-C Unavailable [phone] SUSANA, JUAN A Referring Unavailable SUSANA, JUAN A Primary Care Unavailable SUSANA, JUAN A Referring Unavailable SUSANA, JUAN A Primary Care Unavailable SUSANA, JUAN A Attending Unavailable SUSANA, JUAN A Primary Care Unavailable VAN CARVAJAL Referring Unavailable SUSANA, JUAN A Primary Care Unavailable SUSANA, JUAN A Primary Care Unavailable SUSANA, JUAN A Attending Unavailable SUSANA, JUAN A Primary Care Unavailable [employer]IST.Faith FOSTER Unavailable Christine Lovell PA-C Unavailable [phone] Arun Mezarey Attending Unavailable Susana, Juan Referring Unavailable Susana, Juan Primary Care Unavailable Susana, Juan Primary Care Unavailable Anuj Bello Attending Unavailable Susana, Juan Attending Unavailable Susana, Juan Referring Unavailable Susana, Juan Primary Care Unavailable Susana, Juan Referring Unavailable Susana, Juan Primary Care Unavailable Susana, Juan Attending Unavailable Allergies Allergy Classification Reported Allergen(s) Allergy Type Date of Onset Reaction(s) Facility (20 sources) Bee; Translations: [BEES] Propensity to adverse reactions (disorder) 7 Unknown [facility] Repository (20 sources) HOMEOPATHIC PRODUCTS; Translations: [HOMEOPATHIC PRODUCTS] Propensity to adverse reactions to drug (disorder) 7 Unknown [facility] Repository (2 sources) Cat Allergy to substance 1 Hives [facility] Work Phone: (2 sources) bee venom protein (honey bee) Allergy to substance 2 Anaphylaxis [facility] Work Phone: (1 source) bee venom protein (honey bee) Drug allergy (disorder) 2 [facility] (1 source) cat dander Drug allergy (disorder) 2 [facility] Medications Current Medications Medication Drug Class(es) Dates Sig (Normalized) Sig (Original) [id number] 200 actuat albuterol 0.09 mg/actuat metered dose inhaler (20 sources) beta2-Adrenergic Agonist Start: 08-05-2019 End: 09-24-2024 take 2 puff(s) by inhalation every four hours as needed albuterol HFA (VENTOLIN HFA) 90 mcg/actuation inhaler Indications: Wheezing Inhale 2 puffs as instructed every 4 hours as needed. Inhale by mouth as instructed. 1 each 09/24/2024 Active Comment on above: Inhale 2 Puffs as in structed every 4 hours as needed. Inhale by mouth as instructed. baclofen 10 mg oral tablet (20 sources) gamma-Aminobutyric Acid-ergic Agonist Start: 01-26-2022 End: 01-17-2025 take 1 tablet by mouth once daily baclofen 10 mg tablet Indications: Muscle tension headache Take 1 tablet by mouth once daily. 30 tablet 01/17/2025 Active Start: 06-22-2021 End: 09-30-2021 take 1 tablet by mouth once daily baclofen (LIORESAL) 10 mg tablet Indications: Muscle tension headache Take 1 tablet by mouth once daily. 90 tablet 1 06/22/2021 09/30/2021 Discontinued (Course of therapy completed) Start: 05-08-2021 End: 06-22-2021 take 1 tablet by mouth three times daily as needed for muscle spasms baclofen (LIORESAL) 10 mg tablet Indications: Muscle tension headache Take 1 tablet by mouth three times daily as needed (muscle spasms). 20 tablet 1 06/18/2021 06/22/2021 Discontinued Comment on above: Take 1 tablet by reuben th once daily. Take 1 tablet by reuben th three times daily as needed (muscle spasms). benzonatate 100 mg oral capsule (3 sources) Non-narcotic Antitussive Start: End: take 1 capsule by mouth every eight hours as needed for cough and cough benzonatate (TESSALON PERLE) 100 mg capsule Indications: Acute cough Take 1 capsule by mouth every 8 hours as needed for cough for up to 15 days. 30 capsule 0 12/26/2023 01/10/2024 Active 12 hr buPROPion hydrochloride 100 mg extended release oral tablet (7 sources) Aminoketone Start: End: buPROPion SR (WELLBUTRIN SR) 100 mg 12 hr tablet Take one tab a day for a week and then go to one twice a day. 180 tablet 1 09/24/2024 Active ciprofloxacin 500 mg oral tablet (2 sources) Quinolone Antimicrobial Start: End: take 1 tablet by mouth twice daily ciprofloxacin HCl (CIPRO) 500 mg tablet Take 1 tablet by mouth two times a day for 10 days. 20 tablet 08/29/2024 09/08/2024 Active doxycycline monohydrate 100 mg oral capsule (3 sources) Tetracycline-class Drug Start: End: take 1 capsule by mouth twice daily doxycycline monohydrate (MONODOX) 100 mg capsule Indications: Acute cough Take 1 capsule by mouth two times a day for 5 days. 10 capsule 0 12/26/2023 12/31/2023 Active [id number] 0.3 ml EPINEPHrine 1 mg/ml auto-injector (20 sources) alpha-Adrenergic Agonist, beta-Adrenergic Agonist, Catecholamine Start: End: EPINEPHrine (EPIPEN 2-ARLIN) 0.3 mg/0.3 mL auto-injector Indications: H/O bee sting allergy Inject 0.3 mL intramuscularly as needed. 2 each 1 09/22/2024 Active Start: 08-05-2019 End: 08-30-2024 EPINEPHrine (EPIPEN) 0.3 mg/ 0.3 mL auto-injector Inject 0.3 mL subcutaneously as needed. 1 Each 1 09/04/2021 08/30/2024 Discontinued Comment on above: Inject 0.3 mL subcut aneously as needed. Inject 0.3 mL intram uscularly as needed. hydrOXYzine hydrochloride 10 mg oral tablet (20 sources) Antihistamine Start: 09-23-19 take 1 tablet by mouth every eight hours as needed hydrOXYzine HCl (ATARAX) 10 mg tablet Take 1 tablet by mouth three times a day as needed for anxiety. 90 tablet 1 09/22/2024 Active Start: 09-30-2021 End: 06-04-2024 take 1 tablet by mouth every eight hours as needed hydrOXYzine HCl (ATARAX) 10 mg tablet Take 1 tablet by mouth three times a day as needed for anxiety. 90 tablet 1 09/22/2024 Active Comment on above: Take 1 tablet by reuben three times daily as needed. LORazepam 0.5 mg oral tablet (4 sources) Benzodiazepine Start: 12-26-2023 End: 12-31-2023 LORazepam (ATIVAN) 0.5 mg Indications: Generalized anxiety disorder Take one tab 30-40 min prior to flight 2 tablet 0 12/26/2023 12/31/2023 Active Start: 02-10-2023 End: 02-15-2023 LORazepam (ATIVAN) 0.5 mg Indications: Generalized anxiety disorder Take one tab 30-40 min prior to flight 2 tablet 0 02/10/2023 02/15/2023 Active Start: 06-08-2021 End: 08-10-2021 take 1 tablet by mouth twice daily as needed for anxiety LORazepam (ATIVAN) 0.5 mg Indications: Generalized anxiety disorder Take 1 tablet by mouth twice daily as needed (panic or anxiety) for up to 10 days. 20 tablet 0 06/08/2021 08/10/2021 Discontinued Comment on above: Take 1 tablet by reuben th twice daily as needed (panic or anxiety) for up to 10 days. Take one tab 30-40 m in prior to flight nitrofurantoin, macrocrystals 25 mg / nitrofurantoin, monohydrate 75 mg oral capsule (3 sources) Nitrofuran Antibacterial Start: End: take 1 capsule by mouth twice daily at mealtime nitrofurantoin monohydrate and macrocrystal (MACROBID) 100 mg capsule Take 1 capsule by mouth two times a day with meals for 7 days. 14 capsule 09/14/2024 09/21/2024 Active Start: 02-10-2023 End: 02-17-2023 take 1 capsule by mouth twice daily at mealtime for urinary tract infection nitrofurantoin monohydrate and macrocrystal (MACROBID) 100 mg capsule Take 1 capsule by mouth twice daily with meals for 7 days. For UTI 14 capsule 0 02/10/2023 02/17/2023 Active Comment on above: Take 1 capsule by mo [facility] twice daily with meals for 7 days. For UTI pantoprazole 20 mg delayed release oral tablet (20 sources) Proton Pump Inhibitor Start: 023 End: take 1 tablet by mouth once daily before breakfast pantoprazole DR (PROTONIX) 20 mg tablet Take 1 tablet by mouth daily before breakfast. Take on empty stomach, 1/2 hr before meal. 90 tablet 1 08/29/2024 Active Comment on above: Take 1 tablet by [facility] daily before breakfast. Take on empty stomach, 1/2 hr before meal. phenazopyridine hydrochloride 200 mg oral tablet (11 sources) Start: take 1 tablet by mouth every eight hours as needed phenazopyridine (PYRIDIUM) 200 mg tablet Take 1 tablet by mouth three times a day as needed. 9 tablet 1 08/29/2024 Active predniSONE 10 mg oral tablet (3 sources) Start: 024 End: take 5 tablets by mouth once daily, then take 4 tablets by mouth once daily, then take 3 tablets by mouth once daily, then take 2 tablets by mouth once daily, then take 1 tablet by mouth once daily predniSONE (DELTASONE) 10 mg tablet Indications: Wheezing Take 5 tablets by mouth once daily for 1 day, THEN 4 tablets once daily for 1 day, THEN 3 tablets once daily for 1 day, THEN 2 tablets once daily for 1 day, THEN 1 tablet once daily for 1 day. 15 tablet 0 12/26/2023 12/31/2023 Active promethazine hydrochloride 25 mg oral tablet (20 sources) Phenothiazine Start: End: take 1 tablet by mouth every six hours as needed promethazine (PHENERGAN) 25 mg tablet Take 1 tablet by mouth every 6 hours as needed. 30 tablet 07/28/2022 Active Comment on above: Take 1 tablet by reuben th every 6 hours as needed. rizatriptan 10 mg disintegrating oral tablet (20 sources) Serotonin-1b and Serotonin-1d Receptor Agonist Start: End: take 1 tablet by mouth every two hours as needed rizatriptan (MAXALT KEYLINER) 10 mg disintegrating tablet Take 1 tablet by mouth as needed. May repeat in 2 hours if needed 9 tablet 07/28/2022 Active Start: 02-18-2022 End: 03-16-2022 take 1 tablet by mouth every two hours as needed rizatriptan (MAXALT KEYLINER) 5 mg disintegrating tablet Take 1 tablet by mouth as needed. May repeat in 2 hours if needed 9 tablet 5 02/18/2022 03/16/2022 Discontinued Comment on above: Take 1 tablet by reuben th as needed. May repeat in 2 hours if needed valACYclovir 1000 mg oral tablet (1 source) Herpesvirus Nucleoside Analog DNA Polymerase Inhibitor, Herpes Simplex Virus Nucleoside Analog DNA Polymerase Inhibitor, Herpes Zoster Virus Nucleoside Analog DNA Polymerase Inhibitor Start: End: 5 take 2 tablets by mouth twice daily valACYclovir (VALTREX) 1 gram tablet Take 2 tablets by mouth two times a day for 1 day. 4 tablet 2 10/17/2024 10/18/2024 Active Completed/Discontinued Medications Medication Drug Class(es) Dates Sig (Normalized) Sig (Original) cefadroxil 500 mg oral capsule (7 sources) Cephalosporin Antibacterial Start: 09-30-2021 End: 02-18-2022 take 1 capsule by mouth twice daily cefADROxil (DURICEF) 500 mg capsule Take 1 capsule by mouth twice daily. 20 capsule 0 09/30/2021 02/18/2022 Discontinued Comment on above: Take 1 capsule by mo ut twice daily. escitalopram 20 mg oral tablet (5 sources) Serotonin Reuptake Inhibitor Start: 08-10-2021 End: 09-30-2021 take 1 tablet by mouth once daily escitalopram oxalate (LEXAPRO) 20 mg tablet Take 1 tablet by mouth once daily. 30 tablet 5 08/10/2021 09/30/2021 Discontinued (Lack of Efficacy) Start: 06-08-2021 End: 08-10-2021 take 1.5 tablets by mouth once daily escitalopram oxalate (LEXAPRO) 10 mg tablet Take 1.5 tablets by mouth once daily. 45 tablet 3 06/08/2021 08/10/2021 Discontinued Comment on above: Take 1 tablet by reuben th once daily. Take 1.5 tablets by mouth once daily. eszopiclone 2 mg oral tablet (1 source) Start: End: take 1 tablet by mouth once daily at bedtime eszopiclone (LUNESTA) 2 mg Indications: Generalized anxiety disorder , Psychophysiological insomnia Take 1 tablet by mouth daily at bedtime for 30 days. 30 tablet 0 06/08/2021 07/08/2021 Comment on above: Take 1 tablet by reuben th daily at bedtime for 30 days. lansoprazole 15 mg delayed release oral capsule (5 sources) Proton Pump Inhibitor End: take 1 capsule by mouth once daily lansoprazole (PREVACID) 15 mg capsule Take 15 mg by mouth once daily. taking as necessary 0 09/30/2021 Discontinued (Discontinued by Patient) Comment on above: Take 15 mg by mouth once daily. taking as necessary sertraline 50 mg oral tablet (7 sources) Serotonin Reuptake Inhibitor Start: End: sertraline (ZOLOFT) 50 mg tablet 1/2 a tablet by mouth once a day for 14 days then go to one tablet daily 30 tablet 3 09/30/2021 02/18/2022 Discontinued Comment on above: 1/2 a tablet by mout h once a day for 14 days then go to one tablet daily traZODone hydrochloride 50 mg oral tablet (4 sources) Serotonin Reuptake Inhibitor Start: End: take 1 tablet by mouth once daily at bedtime traZODone (DESYREL) 50 mg tablet Take 1 tablet by mouth daily at bedtime. 30 tablet 5 08/10/2021 09/30/2021 Discontinued (Course of therapy completed) Comment on above: Take 1 tablet by reuben th daily at bedtime. Problems Active Problems Problem Classification Problem Date Documented Date Episodic/Chronic Alcohol-related disorders (2 sources) Alcohol dependence; Translations: [Alcohol dependence, uncomplicated] Chronic Alcohol-related disorders (2 sources) Alcohol intoxication; Translations: [Alcohol use, unspecified with intoxication, unspecified] Episodic Allergic reactions (2 sources) H/O: non-drug allergy; Translations: [Bee allergy status] Onset: 09-22-2024 09-22-2024 Episodic Anxiety disorders (20 sources) Mixed anxiety and depressive disorder; Translations: [Anxiety disorder, unspecified] Onset: 04-13-2021 04-13-2021 Chronic Attention-deficit, conduct, and disruptive behavior disorders (2 sources) Aggressive behavior; Translations: [Other symptoms and signs involving appearance and behavior] Episodic Deficiency and other anemia (2 sources) Microcytic hypochromic anemia; Translations: [Iron deficiency anemia, unspecified] Episodic Diabetes mellitus without complication (2 sources) High hemoglobin A1c level; Translations: [Other abnormal glucose] Onset: 09-22-2024 09-22-2024 Episodic E Codes: Fall (2 sources) Fall; Translations: [Unspecified fall, initial encounter] Episodic Esophageal disorders (20 sources) Gastroesophageal reflux disease; Translations: [Gastro-esophageal reflux disease without esophagitis] Onset: 06-03-2009 04-13-2021 Chronic Headache; including migraine (20 sources) Muscular headache ; Translations: [Tension-type headache, unspecified, not intractable] Onset: 02-18-2022 Chronic Immunizations and screening for infectious disease (4 sources) Needs influenza immunization; Translations: [Encounter for immunization] Onset: 09-22-2024 Episodic Mood disorders (1 source) Mood disorders; Translations: [Anxiety and depression] Onset: 04-13-2021 Nausea and vomiting (1 source) Nausea and vomiting; Translations: [Nausea with vomiting, unspecified] Episodic Other bone disease and musculoskeletal deformities (20 sources) Idiopathic scoliosis; Translations: [Other idiopathic scoliosis, site unspecified] Onset: 04-13-2021 04-13-2021 Chronic Other injuries and conditions due to external causes (2 sources) Closed injury of head; Translations: [Unspecified injury of head, initial encounter] Episodic Other injuries and conditions due to external causes (2 sources) Injury of toe of right foot; Translations: [Unspecified injury of right foot, initial encounter] 08-08-2023 Episodic Other lower respiratory disease (2 sources) Cough; Translations: [Acute cough] 12-26-2023 Episodic Other lower respiratory disease (3 sources) Wheezing; Translations: [Wheezing] 12-26-2023 Episodic Other lower respiratory disease (1 source) Wheezing; Translations: [Wheezing] Onset: 09-22-2024 Episodic Other non-traumatic joint disorders (1 source) Shoulder pain; Translations: [Pain in right shoulder] Episodic Other screening for suspected conditions (not mental disorders or infectious disease) (20 sources) Patient encounter status; Translations: [Encounter for screening for diabetes mellitus] Onset: 04-13-2021 04-13-2021 Episodic Other skin disorders (1 source) Localized swelling, mass and lump, trunk; Translations: [Localized swelling, mass and lump, trunk] Onset: 12-13-2017 Episodic Other upper respiratory infections (1 source) Acute ethmoidal sinusitis; Translations: [Acute ethmoidal sinusitis, unspecified] Episodic Residual codes; unclassified (1 source) Family history of other endocrine, nutritional and metabolic diseases; Translations: [Family history of hemochromatosis] Onset: 09-12-2024 Episodic Unclassified (3 sources) Patient encounter status 07-09-2024 Unclassified (1 source) Acute cough; Translations: [Acute cough] Onset: 12-26-2023 Urinary tract infections (2 sources) Acute cystitis; Translations: [Acute cystitis with hematuria] Onset: 08-29-2024 08-29-2024 Episodic Past or Other Problems Problem Classification Problem Date Documented Da te Episodic/Chronic Genitourinary symptoms and ill-defined conditions (4 sources) Dysuria; Translations: [Dysuria] Onset: 06-23-2024 08-29-2024 Episodic Other and unspecified benign neoplasm (20 sources) Lipoma of trunk; Translations: [Benign lipomatous neoplasm of skin and subcutaneous tissue of trunk] Onset: 12-13-2017 04-13-2021 Episodic Residual codes; unclassified (10 sources) Family history of hemochromatosis; Translations: [Family history of other endocrine, nutritional and metabolic diseases] Onset: 09-12-2024 09-12-2024 Episodic Spondylosis; intervertebral disc disorders; other back problems (20 sources) Spasm of back muscles; Translations: [Muscle spasm of back] Onset: 01-26-2022 Episodic Viral infection (4 sources) Herpes labialis; Translations: [Herpesviral vesicular dermatitis] Onset: 10-17-2024 10-17-2024 Episodic Results Test Name Value Interpretation Reference Range Facility Inital Evaluation (1) - PTon 01-23-2025 Inital Evaluation (1) - PT [facility] [address] [place] [address] / REHABILITATION SERVICES INITIAL EVALUATION MR#: [id number] Acct: [id number] Name: MAI WHARTON Rep #: [id number] : 1970 54 From: José Miguel Gallo PT, ATC Referring Dr.: Dr. Juan Meza MD Status: R EG RCR Insurance: [employer] SELF PAY INSURANCE Patient's Visit Information Visit Information Visit Information: MAI WHARTON is a 54 year old F referred to Physical Therapy by Dr. Juan Meza MD with a diagnosis of Cervical spine pain. Date of Evaluation: 01/23/25 Physical Therapist: José Miguel Gallo, PT, ATC Visit Plan Frequency: 2x /Week Duration: 4-6 Weeks Plan: Postural edu, DTR to C/S, manual distraction and mobs, and HEP Subjective Subjective: Pt reports she fell 3-4 weeks ago which resulted in many body parts feeling injured, especially her neck. Pt notes she was carrying a plate of hotdogs and hamburgers when her dog ran into her from behind, taking her down to the ground. Pt reports she still has neck pain and L elbow pain with L hand dominance. Pt has not had any recent diagnostic testing. Pt notes she has had PT in the past, which really has helped. Pt reports she will get occassional pain that originates in the cervical spine and will radiate down B UE's all the way to the hand regions. Pt notes she has significant difficulty with sleep secondary to pain. Pt notes she has difficulty with driving at this time secondary to limited cervical spine ROM. 4/10 pain while sitting here at rest, 7/10 at worst which really is limiting. Pain Neck pain: Pain Intensity (Out of 10): 4 Pain Intensity Range: 7 Objective Objective: Neuro: B UE sensation is WNL to light touch with the exception of L UE ulnar distribution which is hyposensitive to light touch. Palpation: Pt has severe muscle guarding throughout cervical spine paraspinals, sub occip, and scalenes MMT: B elbow extension 4-/5. All other B UE MMT 5/5 throughout ROM: Pt is moderately limited with B SB and rotation. All other motions are minimally limited. Repeated movements: all repeated movements increased pain today Balance/Special Test Scores Oswestry Neck Score: 22 Goals Goal 1:: Decrease cervical spine pain x 50% to aid with sleep Goal Time Frame: 4-6 Weeks Goal 2:: Increase cervical spine ROM x 1 grade in all planes to aid with IADL's Goal Time Frame: 4-6 Weeks Goal 3:: Decrease the frequency and intensity of B UE radiculopathy x 50% to aid with IAD's Goal Time Frame: 4-6 Weeks Goal 4:: I with HEP Goal Time Frame: 4-6 Weeks Rehabilitation Potential Physical Therapy Diagnosis: Pt has neck pain, limited ROM, and difficulty with sleep secondary to cervical spine sprain Rehabilitation Potential: Good Anticipated Interventions Patient/Client Instruction: Educate patient on: Condition and Plan of Care For the Purpose of:: To improve self management Manual Therapy Techniques to Include: Mobilization and Soft tissue mobilization For the Purpose of:: To decrease pain, To increase ROM and To improve muscle performance and motor function Text: Thank you for the opportunity to evaluate your patient. For Medicare and Medicare HMO plans, please review the plan of care and approve it. It will need to be FAXED BACK to us at [phone] for Medicare purposes. For Medicare only, by signing this I certify the plan of care. Please let me know if there are questions or concerns regarding this plan of care. Physician Signature: Date: _ 01/23/25 1053 CC: Dr. Juan Meza MD [facility] Signed Normal [facility] CNOVon 09-22-[address] [facility] Office Visit (FAMPWS ) ----- MAI WHARTON ([id number]) 1970 F Date Time Provider Department 09/22/24 12:00 PM [facility] During your visit today, we recorded the following information about you: Pulse Blood pressure Weight Height 128/minute 118/79 87.1 kg 1.6 m Juan Meza MD 09/23/2024 9:11 PM Signed Chief Complaint Patient presents with: Physical HPI Mai Wharton is a 54 year old female who presents here today for Physical. Patient with Hx Migraines, anxiety, GERD and using PPI as needed but not often as well as those reviewed and addressed below and in ROS. BP's at home have been good: running 115-121/78-81 Patient has been doing well. The bladder symptoms have resolved. Past medical history, appointments, medications, allergies reviewed. Previous Medical History PAST MEDICAL HISTORY Diagnosis Date Anxiety and depression 04/13/2021 Back spasm 01/26/2022 Takes prn baclofen (also helps headache's prn) Family history of hemochromatosis 09/12/2024 GERD (gastroesophageal reflux disease) 06/03/2009 Uses PRN prevacid as of 2008 Heartburn Idiopathic scoliosis 04/13/2021 Migraine without status migrainosus, not intractable 02/18/2022 Well adult exam 02/10/2023 Last done: 02/10/2023 Previous Surgical History PAST SURGICAL HISTORY Procedure Laterality Date EXTRACTION ERUPTED TOOTH U/S EXAM PERFUSION SOFT TISSUE MASS 12/19/2017 excision soft tissue mass pf posterior back Family History FAMILY HISTORY Problem Relation Age of Onset Cancer Mother cholangiocarcinoma Colon Cancer Other none Coronary Artery Disease Other none Diabetes Other none Patient Allergies ALLERGIES Allergen Reactions Bees Unknown Current Medications Current Outpatient Medications on File Prior to Visit Medication Sig nitrofurantoin monohydrate and macrocrystal (MACROBID) 100 mg capsule Take 1 capsule by mouth two times a day with meals for [address] (PROTONIX) 20 mg tablet Take 1 tablet by mouth daily before breakfast. Take on empty stomach, 1/2 hr before meal. phenazopyridine (PYRIDIUM) 200 mg tablet Take 1 tablet by mouth three times a day as needed. hydrOXYzine HCl (ATARAX) 10 mg tablet Take 1 tablet by mouth three times a day as needed. albuterol HFA (VENTOLIN HFA) 90 mcg/actuation inhaler Inhale 2 Puffs as instructed every 4 hours as needed. Inhale by mouth as instructed. baclofen 10 mg tablet Take 1 tablet by mouth once daily. rizatriptan (MAXALT KEYLINER) 10 mg disintegrating tablet Take 1 tablet by mouth as needed. May repeat in 2 hours if needed promethazine (PHENERGAN) 25 mg tablet Take 1 tablet by mouth every 6 hours as needed. EPINEPHrine (EPIPEN 2-ARLIN) 0.3 mg/0.3 mL auto-injector Inject 0.3 mL intramuscularly as needed. No current facility-administered medications on file prior to visit. Social History Social History Tobacco Use Smoking status: Never Smokeless tobacco: Never Vaping Use Vaping status: Never Used Substance Use Topics Alcohol use: Yes Comment: seldom Drug use: No Review of Symptoms REVIEW OF SYSTEMS GENERAL: No weight loss, malaise or fevers HEENT: Negative for frequent or significant headaches, No changes in hearing or vision, no nose bleeds or other nasal problems NECK: Negative for lumps, goiter, pain and significant neck swelling RESPIRATORY: Negative for cough, hemoptysis, wheezing, COPD, dyspnea or shortness of breath CARDIOVASCULAR: Negative for chest pain, leg swelling, hypertension, CHF or palpitations GI: No nausea, vomiting, or diarrhea, No frequent heartburn or reflux symptoms, and blood : No history of dysuria, frequency or blood MUSCULOSKELETAL: Negative for joint pain or swelling, back pain or muscle pain SKIN: Negative for lesions, rash, and itching PSYCH: having some increase anxiety and not sleeping well HEMATOLOGY/LYMPHOLOGY: Negative for prolonged bleeding, bruising easily or swollen nodes ENDOCRINE: Negative for cold or heat intolerance, polyuria, polydipsia and goiter NEURO: No history of headaches, syncope, paralysis, seizures or tremors EXAM: BP 131/95 Pulse (!) 128 Ht 160 cm (5' 3) Wt 87.1 kg (192 lb) LMP 01/24/2023 (Within Days) BMI 34.01 kg/m? BP 118/79 Pulse (!) 128 Ht 160 cm (5' 3) Wt 87.1 kg (192 lb) LMP 01/24/2023 (Within Days) BMI 34.01 kg/m? Last 6 Encounter Wt Readings: Date: Wt: 09/22/2024 87.1 kg (192 lb) 08/29/2024 85.7 kg (189 lb) 12/26/2023 85.2 kg (187 lb 13.3 oz) 08/08/2023 85.3 kg (188 lb) 02/10/2023 87.1 kg (192 lb) 04/20/2022 88.9 kg (196 lb) General Appearance: Well appearing, alert, in no acute distress, well-hydrated, well nourished. and Obese. Skin: Skin color, texture, turgor normal, no suspicious rashes or lesions. Head: Normocephalic, no masses, lesions, tenderness or abnormalities. Eyes: Anicteric (more content not included)... Normal [facility] Ferritin SerPl-ncon 2024 Ferritin [Mass/Vol] 26.1 ng/mL Normal 14.7-205.1 [facility] Comment on above: Order Comment: Kweis lew Type: BLOOD SPECIMENOrdering Facility: [facility] Address: [address] [place] [address] Performed By: #### 5 0190-8, 2276-4, LIPNF ####[facility] [id number] [place] [address] [place] HFE (HEMOCHROMATOSIS)on 09-04 INTERPRETATION (HEMDNA) Normal [facility] Comment on above: Order Comment: Kwesi lew Type: BLOOD SPECIMEN [facility] Address: [address] [place] [address] Result Comment: HFE (Hemochromatosis) Laboratory Accession Number: [id number] Result: C282Y: WT H63D: WT S65C: WT Interpretation: No variant detected: The DNA sample is negative for the C282Y, H63D and S65C variants of the HFE gene. Variants at these loci are commonly associated with hereditary hemochromatosis (HH). Approximately 13% of clinically affected individuals may have this negative result, suggesting other etiologies for hereditary hemochromatosis. Methodology: Patient DNA was evaluated for three missense variants in the HFE gene (NM_000410.3) using multiplex polymerase chain reaction (PCR) followed by melting curve analysis. The variants interrogated are c.845G>A, p.[id number]; g.[id number]; [id number] (legacy name C282Y), c.187C>G, p.Gni31Ict; g.[id number]; [id number] (legacy name H63D) and c.193A>T, p.Jsv31Cre; g.[id number]; [id number] (legacy name S65C). The reference genome used was GRCh37/hg19. Limitations: DNA studies do not provide a definitive genetic risk in all individuals. This targeted test is designed to detect three specific variants (see methodology for details) in HFE (OMIM 653967). Uncommon variants or single nucleotide polymorphisms may affect binding of probes and thus result in false negative, false positive, or indeterminate results. This test does not detect other HFE variants. Disclaimer: This test was developed and its performance characteristics determined by [facility]'s Pathology and Laboratory Medicine Department. It has not been cleared or approved by the FDA. [facility]'s Pathology and Laboratory Medicine Department is regulated under CLIA as certified to perform high-complexity testing. This test is used for clinical purposes. It should not be regarded as investigational or for research. Test performed at [facility], [address] [place] [address]. CLIA Number: [id number] Interpretation performed by Ritika Jerome MD, PhD Performed By: #### H SONG #### [facility] [id number] [address] [place] [address] [place] HbA1c (Bld)on 09-20-2024 Average glucose Estimated from glycated hemoglobin (Bld) [Mass/Vol] 117 mg/dL Normal [facility] Comment on above: Order Comment: Kwesi men Type: BLOOD SPECIMENOrdering Facility: [facility] Address: [address] [place] [address] Result Comment: eAG: (Estimated average glucose) is a calculated value from HgbA1c and is wireless sales representative of the average blood glucose level in the last 2-3 month period. Performed By: #### 5 5454-3 ####[facility] [id number] [place] [address] [place] HbA1c (Bld) [Mass fraction] 5.7 % High 4.3-5.6 [facility] Comment on above: Order Comment: Kwesi men Type: BLOOD SPECIMENOrdering Facility: [facility] Address: [address] [place] [address] Result Comment: Amer ican Diabetes Association guidelines indicate that patients with HgbA1c in the range 5.7-6.4% are at increased risk for development of diabetes, and intervention by lifestyle modification may be beneficial. HgbA1c greater or equal to 6.5% is considered diagnostic of diabetes. Performed By: #### 5 5454-3 ####[facility] LABIA [id number] [place] [address] [place] Iron and Iron binding capaci ty panelon 09-20-2024 Iron [Mass/Vol] 64 ug/dL Normal 41-186 [facility] Comment on above: Order Comment: Kwesi men Type: BLOOD SPECIMENOrdering Facility: [facility] Address: [address] [place] [address] Performed By: #### 5 0190-8, 2276-4, LIPNF ####[facility] LABIA [id number] [address] [place] Iron binding capacity [Mass/Vol] 495 ug/dL High 232-386 [facility] Comment on above: Order Comment: Kwesi men Type: BLOOD SPECIMENOrdering Facility: [facility] Address: [address] [place] [address] Performed By: #### 5 0190-8, 2275-, LIPNF ####[facility] LABCLIA [id number] [place] [address] [place] Iron/TIBC [Molar ratio] 12.9 % Low 15.0-57.0 [facility] Comment on above: Order Comment: Speci men Type: BLOOD SPECIMENOrdering Facility: [facility] Address: [address] [place] [address] Performed By: #### 5 0190-8, 2275-, LIPNF ####[facility]CLIA [id number] [address] [place] LIPID PANEL, NONFASTINGon Cholesterol [Mass/Vol] 176 mg/dL Normal <200 [facility] Comment on above: Order Comment: Speci men Type: BLOOD SPECIMENOrdering Facility: [facility] Address: [address] [place] [address] Result Comment: <200 mg/dL, Desirable 200-239 mg/dL, Borderline high >239 mg/dL, High Performed By: #### 5 0190-8, 2275-09, LIPNF ####[facility] [id number] [place] [address] [place] HDL CHOLESTEROL, NF 47 mg/dL Normal >39 [facility] Comment on above: Order Comment: Speci men Type: BLOOD SPECIMENOrdering Facility: [facility] Address: [address] [place], [place] [address] Result Comment: 40-5 9 mg/dL, Acceptable >59 mg/dL, High: Negative risk factor for coronary heart disease <40 mg/dL, Low: Positive risk factor for coronary heart disease Performed By: #### 5 0190-8, 2275-, LIPNF ####[facility]IA [id number] [address], [facility] [place] LDL CHOLESTEROL, NF 113 mg/dL High <100 [facility] Comment on above: Order Comment: Speci men Type: BLOOD SPECIMENOrdering Facility: [facility] Address: [address] [place] [address] Result Comment: <100 mg/dL, Optimal 100-129 mg/dL, Near optimal/above optimal 130-159 mg/dL, Borderline high 160-189 mg/dL, High >189 mg/dL, Very high Secondary prevention optimal LDL Cholesterol levels are recommended to be < 70 mg/dL Performed By: #### 5 0190-8, 2276-4, LIPNF ####[facility]IA [id number] [address] OF [facility] LDL/HDL RATIO, NF 2.40 mg/dL Normal <2.54 [facility] Comment on above: Order Comment: Susannai men Type: BLOOD SPECIMENOrdering Facility: [facility] Address: [address] [place] [address] Result Comment: Refe rence: 1. National Cholesterol Education Program ATP III Guideline At-A-Glance Quick Desk Reference: National Heart, Lung, and Blood [place]. National Institutes of Health. 2001: NIH Publication No. 01-3305. 2. An International Atherosclerosis Society position paper: global recommendations for the management of dyslipidemia: executive summary, Atherosclerosis. 2014: 232(2):410-413. Performed By: #### 5 0190-8, 2276-4, LIPNF ####[facility]IA [id number] [place] [address] [place] NON HDL CHOL, NF 129 mg/dL Normal <130 [facility] Comment on above: Order Comment: Susannai vipin Type: BLOOD SPECIMENOrdering Facility: [facility] Address: [address] [place] [address] Result Comment: <130 mg/dL, Optimal 130-159 mg/dL, Near optimal/above optimal 160-189 mg/dL, Borderline high 190-219 mg/dL, High >219 mg/dL, Very high Secondary prevention optimal non HDL Cholesterol levels are recommended to be <100 mg/dL Performed By: #### 5 0190-8, 6-4, LIPNF ####[facility] [id number] [place] [address] [place] T CHOL/HDL RATIO NF 3.74 mg/dL Normal <5.10 [facility] Comment on above: Order Comment: Speci men Type: BLOOD SPECIMENOrdering Facility: [facility] Address: [address] [place] [address] Performed By: #### 5 0190-8, 6-4, LIPNF ####[facility]CL[facility] [id number] [place] [address] [place] TRIGLYCERIDES, NF 78 mg/dL Normal <150 [facility] Comment on above: Order Comment: Speci men Type: BLOOD SPECIMENOrdering Facility: [facility] Address: [address] [place] [address] Result Comment: <150 mg/dL, Normal 150-199 mg/dL, Borderline high 200-499 mg/dL, High >499 mg/dL, Very high Performed By: #### 5 0190-8, 2275-, LIPNF ####[facility] [id number] [place] [address] [place] VLDL CHOLESTEROL, NF 16 mg/dL Normal <30 [facility] Comment on above: Order Comment: Speci men Type: BLOOD SPECIMENOrdering Facility: [facility] Address: [address] [place] [address] Performed By: #### 5 0190-8, 2275-4, LIPNF ####[facility]CLIA [id number] [place] [address] [place] Bacteria Ur Culton 5 Bacteria identified Cx Nom (U) ORGANISM ID: 1 10,000 -<50,000 CFU/ml Normal urogenital maria fernanda Normal [facility] Comment on above: Performed By: #### 6 30-4 ####[facility] [id number] [address], [facility] [place] Urinalysis complete panel (U )on 09-14-2024 Bacteria LM.HPF (Urine sed) [#/Area] Negative Normal Negative [facility] Comment on above: Order Comment: Speci men Type: URINE SPECIMENOrdering Facility: [facility] Address: [address] [place] [address] Performed By: #### 2 4356-8 ####[facility] LABIA [id number] [address], [place] [address] [place] Bilirubin Ql (U) Negative Normal Negative [facility] Comment on above: Order Comment: Speci men Type: URINE SPECIMENOrdering Facility: [facility] Address: [address] [place] [address] Performed By: #### 2 4356-8 ####[facility] LABIA [id number] [place] [address] [place] Clarity (Unsp spec) Clear Normal Clear [facility] Comment on above: Order Comment: Speci men Type: URINE SPECIMENOrdering Facility: [facility] Address: [address] [place] [address] Performed By: #### 2 4356-8 ####[facility] LABIA [id number] [place] [address] [place] Color (U) Yellow Normal Yellow [facility] Comment on above: Order Comment: Speci men Type: URINE SPECIMENOrdering Facility: [facility] Address: [address] [place] [address] Performed By: #### 2 4356-8 ####[facility] LABIA [id number] [place] [address] [place] Epithelial cells LM.HPF (Urine sed) [#/Area] Moderate Normal [facility] Comment on above: Order Comment: Speci men Type: URINE SPECIMENOrdering Facility: [facility] Address: [address] [place] [address] Performed By: #### 2 4356-8 ####[facility]CLIA [id number] [place] [address] [place] Glucose Test strip (U) [Mass/Vol] Negative Normal Negative [facility] Comment on above: Order Comment: Speci men Type: URINE SPECIMENOrdering Facility: [facility] Address: [address] [place] [address] Performed By: #### 2 4356-8 ####[facility]CLIA [id number] [place] [address] [place] Hemoglobin Ql (U) Negative Normal Negative [facility] Comment on above: Order Comment: Speci men Type: URINE SPECIMENOrdering Facility: [facility] Address: [address] [place] [address] Performed By: #### 2 4356-8 ####[facility]CLIA [id number] [address], [place] [address] [place] Hyaline casts (Urine sed) [#/Area] 0 /[LPF] Normal 0 /LPF [facility] Comment on above: Order Comment: Speci men Type: URINE SPECIMENOrdering Facility: [facility] Address: [address] [place] [address] Performed By: #### 2 4356-8 ####[facility]CLIA [id number] [place] [address] [place] Ketones Ql (U) Negative Normal Negative [facility] Comment on above: Order Comment: Speci men Type: URINE SPECIMENOrdering Facility: [facility] Address: [address] [place] [address] Performed By: #### 2 4356-8 ####[facility]CLIA [id number] [place] [address] [place] Leukocyte esterase Test strip Ql (U) 1+ Abnormal Negative [facility] Comment on above: Order Comment: Speci men Type: URINE SPECIMENOrdering Facility: [facility] Address: [address] [place] [address] Performed By: #### 2 4356-8 ####[facility]CLIA [id number] [address], [place] [address] [place] Nitrite Ql (U) Negative Normal Negative [facility] Comment on above: Order Comment: Speci men Type: URINE SPECIMENOrdering Facility: [facility] Address: [address] [place] [address] Performed By: #### 2 4356-8 ####[facility]CLIA [id number] [place] [address] [place] pH (U) 6.5 [pH] Normal <8.5 [facility] Comment on above: Order Comment: Speci men Type: URINE SPECIMENOrdering Facility: [facility] Address: [address] [place] [address] Performed By: #### 2 4356-8 ####[facility] LABIA [id number] [place] [address] [place] Protein (U) [Mass/Vol] Negative Normal Negative [facility] Comment on above: Order Comment: Speci men Type: URINE SPECIMENOrdering Facility: [facility] Address: [address] [place] [address] Performed By: #### 2 4356-8 ####[facility]CLIA [id number] [address], [facility] [place] RBC LM.HPF (Urine sed) [#/Area] 0-2 /HPF Normal 0-2 /HPF [facility] Comment on above: Order Comment: Speci men Type: URINE SPECIMENOrdering Facility: [facility] Address: [address] [place] [address] Performed By: #### 2 4356-8 ####[facility]CLIA [id number] [place] [address] [place] Specific gravity (U) [Rel density] 1.010 Normal 1.005-1.030 [facility] Comment on above: Order Comment: Speci men Type: URINE SPECIMENOrdering Facility: [facility] Address: [address] [place] [address] Performed By: #### 2 4356-8 ####[facility] LABIA [id number] [place] [address] [place] Urobilinogen Ql (U) 0.2 EU/dL Normal 0.2-1.0 EU/dL [facility] Comment on above: Order Comment: Speci men Type: URINE SPECIMENOrdering Facility: [facility] Address: [address] [place] [address] Performed By: #### 2 4356-8 ####[facility] LABIA [id number] [place] [address] [place] WBC LM.HPF (Urine sed) [#/Area] 0-5 /HPF Normal 0-5 /HPF [facility] Comment on above: Order Comment: Speci men Type: URINE SPECIMENOrdering Facility: [facility] Address: [address] [place] [address] Performed By: #### 2 4356-8 ####[facility] LABIA [id number] [place] [address] [place] CNOVon 08-29-2024 CNOV Office Visit (FAMPWS ) ----- MAI WHARTON ([id number]) 1970 F Date Time Provider Department 08/29/24 6:20 PM JUAN MEZA FAMPWS During your visit today, we recorded the following information about you: Pulse Blood pressure Weight Height 125/minute 146/96 85.7 kg 1.588 m Juan Meza MD 08/30/2024 3:09 PM Signed Chief Complaint Patient presents with: UTI HPI Mai Wharton is a 54 year old female who presents here today for UTI Patient with Hx Migraines, anxiety, GERD and using PPI as needed but not often as well as those reviewed and addressed below and in ROS. Patient has been having symptoms since early August and was in [place]. She pushed fluids because she did not want to go to an peoples hospital care. She got back from [place] the beginning of last week. The symptoms started to get worse and the urine was getting cloudy. On Tuesday she saw some blood in the urine. No flank pain. Having dysuria, spasms, urgency and frequency. Has felt hot and cold at times but not sure if a fever. Last night she was nauseated and vomited due to the pain. Past medical history, appointments, medications, allergies reviewed. Previous Medical History PAST MEDICAL HISTORY Diagnosis Date Anxiety and depression 04/13/2021 Back spasm 01/26/2022 Takes prn baclofen (also helps headache's prn) GERD (gastroesophageal reflux disease) 06/03/2009 Uses PRN prevacid as of 2008 Heartburn Idiopathic scoliosis 04/13/2021 Migraine without status migrainosus, not intractable 02/18/2022 Well adult exam 02/10/2023 Last done: 02/10/2023 Previous Surgical History PAST SURGICAL HISTORY Procedure Laterality Date EXTRACTION ERUPTED TOOTH U/S EXAM PERFUSION SOFT TISSUE MASS 12/19/2017 excision soft tissue mass pf posterior back Family History FAMILY HISTORY Problem Relation Age of Onset Cancer Mother cholangiocarcinoma Colon Cancer Other none Coronary Artery Disease Other none Diabetes Other none Patient Allergies ALLERGIES Allergen Reactions Bees Unknown Current Medications Current Outpatient Medications on File Prior to Visit Medication Sig hydrOXYzine HCl (ATARAX) 10 mg tablet Take 1 tablet by mouth three times a day as needed. pantoprazole DR (PROTONIX) 20 mg tablet Take 1 tablet by mouth daily before breakfast. Take on empty stomach, 1/2 hr before meal. albuterol HFA (VENTOLIN HFA) 90 mcg/actuation inhaler Inhale 2 Puffs as instructed every 4 hours as needed. Inhale by mouth as instructed. baclofen 10 mg tablet Take 1 tablet by mouth once daily. rizatriptan (MAXALT KEYLINER) 10 mg disintegrating tablet Take 1 tablet by mouth as needed. May repeat in 2 hours if needed promethazine (PHENERGAN) 25 mg tablet Take 1 tablet by mouth every 6 hours as needed. EPINEPHrine (EPIPEN 2-ARLIN) 0.3 mg/0.3 mL auto-injector Inject 0.3 mL intramuscularly as needed. EPINEPHrine (EPIPEN) 0.3 mg/0.3 mL auto-injector Inject 0.3 mL subcutaneously as needed. No current facility-administered medications on file prior to visit. Social History Social History Tobacco Use Smoking status: Never Smokeless tobacco: Never Vaping Use Vaping status: Never Used Substance Use Topics Alcohol use: Yes Comment: seldom Drug use: No Review of Symptoms REVIEW OF SYSTEMS See HPI EXAM: BP 150/100 Pulse (!) 125 Ht 158.8 cm (5' 2.5) Wt 85.7 kg (189 lb) LMP 01/24/2023 (Within Days) BMI 34.02 kg/m? BP 146/96 Pulse (!) 125 Ht 158.8 cm (5' 2.5) Wt 85.7 kg (189 lb) LMP 01/24/2023 (Within Days) BMI 34.02 kg/m? At the drug store last week was 122/81 General Appearance: Well appearing, alert, in no acute distress, well-hydrated, well nourished.. Back:no CVA tenderness. Abdomen: Abdomen soft, Bowel sounds normal. No masses, organomegaly. Has some supra pubic tenderness. Health Maintenance List Lipid Screening Never done Diabetes Screening Never done Colorectal Cancer Screening Never done Pneumococcal Vaccine: 50+(1 of 1 - PCV) Never done Shingrix Vaccine(2 of 2) due on 04/07/2023 Mammogram Screening due on 05/03/2023 Cervical Cancer Screening due on 04/13/2026 DTaP,Tdap,Td Vaccine(2 - Td or Tdap) due on 11/21/2029 Hepatitis B Vaccine Completed Influenza Vaccine Completed Covid-19 Vaccine Completed Hepatitis C Screening Discontinued HIV Screening Discontinued Data reviewed Latest Ref Rng 08/29/2024 GLUCOSE UA (POCT) Negative mg/dL Negative BILIRUBIN UA (POCT) Negative Moderate ! KETONE UA (POCT) Negative mg/dL 40 ! SPECIFIC GRAVITY UA (POCT) 1.005 - 1.030 1.020 HEMOGLOBIN/BLOOD UA (POCT) Negative Large ! PH UA (POCT) 4.5 - 8.0 6.0 PROTEIN UA (POCT) Negative mg/dL Negative UROBILINOGEN UA (POCT) Normal E.U./dL 1.0 NITRITE UA (POCT) Negative Negative LEUKOCYTES UA (POCT) Negative Large ! COLOR UA (POCT) Dark yellow CLARITY UA (POCT) Clear A/P ASSESSMENT/PLAN: (more content not included)... Normal [facility] UA DIP, URINE (POC)on 2024 BILIRUBIN UA (POCT) Moderate Abnormal Negative [facility] CLARITY UA (POCT) Clear [facility] COLOR UA (POCT) Dark yellow [facility] GLUCOSE UA (POCT) Negative Negative mg/dL [facility] Hemoglobin Ql (U) Large Abnormal Negative [facility] Interpretation and review of laboratory results Abnormal [facility] KETONE UA (POCT) 40 mg/dL Abnormal Negative [facility] LEUKOCYTES UA (POCT) Large Abnormal Negative [facility] NITRITE UA (POCT) Negative Negative [facility] PH UA (POCT) 6 4.5 - 8.0 [facility] Protein Ql (U) Negative Negative mg/dL [facility] SPECIFIC GRAVITY UA (POCT) 1.02 1.005 - 1.030 [facility] UROBILINOGEN UA (POCT) 1 Normal E.U./dL [facility] Location:[address], [place], [place], [id number] [place] [address] POINT OF CARE [facility] Urine Cultureon 05-22-2024 URC Mixed Gram Positive Organisms [place] Count 11,000-25,000 MIXC Mixed contaminants. Submit a new specimen if indicated. Normal [facility] Comment on above: Performed By: #### M 100.2200 #### [facility] [address] [place], [place], [id number] Basic Metabolic Profile (BMP )on 05-21-2024 BUN/CRE 7.6 RATIO Low 10-20 [facility] Comment on above: Performed By: #### L 100.0100, L500.2500 #### [facility] [address] [place], [address] CA,Total 10.1 mg/dL Normal 8.5-10.1 [facility] Comment on above: Performed By: #### L 100.0100, L500.2500 #### [facility] [address] [place], [address] Chloride [Moles/Vol] 96 mmol/L Low 98-107 [facility] [facility] Comment on above: Performed By: #### L 100.0100, L500.2500 #### [facility] [address] [place], [address] CO2 [Moles/Vol] 20.0 mmol/L Low 21.0-32.0 [facility] Comment on above: Performed By: #### L 100.0100, L500.2500 #### [facility] [address] [place], [address] Creatinine [Mass/Vol] 1.44 mg/dL High 0.55-1.02 [facility] Comment on above: Result Comment: The validity of the calculated GFR GFRAA in patients over 70 years has not been determined. Clinical correlation is essential. Performed By: #### L 100.0100, L500.2500 #### [facility] [address] [place], [address] ECRCL 48.29 ml/min Normal [facility] Comment on above: Performed By: #### L 100.0100, L500.2500 #### [facility] [address] [place], [address] EST GFR - AA 49 mL/min Low >60 [facility] Comment on above: Result Comment: Afri can [place] GFR Calc Performed By: #### L 100.0100, L500.2500 #### [facility] [address] [place], [address] GAP 14 Normal 5-15 [facility] Comment on above: Performed By: #### L 100.0100, L500.2500 #### [facility] [address] [place], [address] GFR/1.73 sq M.predicted among non-blacks MDRD (S/P/Bld) [Vol rate/Area] 41 mL/min/{1.73_m2} Low >60 [facility] Comment on above: Result Comment: Non- GFR Calc Performed By: #### L 100.0100, L500.2500 #### [facility] [address] [place], [address] Glucose [Mass/Vol] 147 mg/dL High 74-106 [facility] Comment on above: Result Comment: Fast ing Glucose result greater than or equal to 126 mg/dL suggests DIABETES MELLITUS per A.D.A. criteria. Performed By: #### L 100.0100, L500.2500 #### [facility] [address] [place], [address] Potassium [Moles/Vol] 3.4 mmol/L Low 3.5-5.1 [facility] Comment on above: Performed By: #### L 100.0100, L500.2500 #### [facility] [address] [place], [address] Sodium [Moles/Vol] 130 mmol/L Low 136-145 [facility] Comment on above: Performed By: #### L 100.0100, L500.2500 #### [facility] [address] [place], [address] Urea nitrogen [Mass/Vol] 11 mg/dL Normal 7-18 [facility] Comment on above: Performed By: #### L 100.0100, L500.2500 #### [facility] [address] [place], [address] CBC W/Diff, Automatedon 12- Absolute Lymph 1.80 X10 3/uL Normal 0.83-4.51 [facility] Comment on above: Performed By: #### L 100.0100, L500.2500 #### [facility] [address] [place], [address] Absolute Neut 6.5 X10 3/uL Normal 2.0-7.7 [facility] Comment on above: Performed By: #### L 100.0100, L500.2500 #### [facility] [address] [place], [address] Basophils/100 WBC (Bld) 0.7 % Normal 0-1 [facility] Comment on above: Performed By: #### L 100.0100, L500.2500 #### [facility] [address] [place], [address] Eosinophils/100 WBC (Bld) 2.0 % Normal 0-5 [facility] Comment on above: Performed By: #### L 100.0100, L500.2500 #### [facility] [address] [place], [address] Erythrocyte distribution width (RBC) [Ratio] 19.8 % High 11.6-14.6 [facility] Comment on above: Performed By: #### L 100.0100, L500.2500 #### [facility] [address] [place], [address] Hematocrit (Bld) [Volume fraction] 40.4 % Normal 37-47 [facility] Comment on above: Performed By: #### L 100.0100, L500.2500 #### [facility] [address] [place], [address] Hemoglobin (Bld) [Mass/Vol] 12.9 g/dL Normal 12.0-15.0 [facility] Comment on above: Performed By: #### L 100.0100, L500.2500 #### [facility] [address] [place], [address] IG% 0.400 Normal 0.0-0.9 [facility] Comment on above: Result Comment: IG% - Immature Granulocytes (promyelocytes, myelocytes and metamyelocytes) > 1% indicates that a LEFT SHIFT is Present. Performed By: #### L 100.0100, L500.2500 #### [facility] [address] [place], [address] Lymphocytes/100 WBC (Bld) 19.8 % Normal 19-41 [facility] Comment on above: Performed By: #### L 100.0100, L500.2500 #### [facility] [address] [place], [address] MCH (RBC) [Entitic mass] 25.9 pg Low 27.0-32.0 [facility] Comment on above: Performed By: #### L 100.0100, L500.2500 #### [facility] [address] [place], [address] MCHC (RBC) [Mass/Vol] 31.9 g/dL Low 32-36 [facility] Comment on above: Performed By: #### L 100.0100, L500.2500 #### [facility] [address] [place], [address] MCV (RBC) [Entitic vol] 81.0 fL Normal 81-99 [facility] Comment on above: Performed By: #### L 100.0100, L500.2500 #### [facility] [address] [place], [address] Monocytes/100 WBC (Bld) 5.9 % Normal 0-10 [facility] Comment on above: Performed By: #### L 100.0100, L500.2500 #### [facility] [address] [place], [address] Neutrophils/100 WBC (Bld) 71.2 % High 47-70 [facility] Comment on above: Performed By: #### L 100.0100, L500.2500 #### [facility] [address] [place], [address] Nucleated RBC (Bld) [#/Vol] 0 10*3/uL Normal 0-5 [facility] Comment on above: Performed By: #### L 100.0100, L500.2500 #### [facility] [address] [place], [address] Platelet mean volume (Bld) [Entitic vol] 9.2 fL Normal 6.2-12.0 [facility] Comment on above: Performed By: #### L 100.0100, L500.2500 #### [facility] [address] [place], [address] Platelets (Bld) [#/Vol] 152 10*3/uL Normal 150-450 [facility] Comment on above: Performed By: #### L 100.0100, L500.2500 #### [facility] [address] [place], [address] RBC (Bld) [#/Vol] 4.99 10*6/uL Normal 4.2-5.4 [facility] Comment on above: Performed By: #### L 100.0100, L500.2500 #### [facility] [address] [place], [address] RDW SD 57.0 fl High 35.1-43.9 [facility] Comment on above: Performed By: #### L 100.0100, L500.2500 #### [facility] [address] [place], [address] WBC (Bld) [#/Vol] 9.1 10*3/uL Normal 4.4-11.0 [facility] Comment on above: Performed By: #### L 100.0100, L500.2500 #### [facility] [address] [place], [address] Emergency Department Summary on 05-21-2024 Emergency Department Summary [facility] Medical Records Department [address] [place] [address] Emergency Department Summary 05/21/24 MR#: [id number] Acct: [id number] Name: MAI WHARTON Rep #: [id number] : 1970 54 From: Anuj Bello DO PCP: Dr. Juan Meza MD Status:REG ER Location: ED HPI History of Present Illness Chief Complaint: Complaint Informant: patient Narrative Narrative: Patient is a 54-year-old female with past medical history of migraine. She states over the last 7 to 10 days she has been having urinary frequency urgency and dysuria. She states that she has been trying to flush her system and for a few days she felt like she was better. However symptoms returned and then she developed back pain and this concerned her for a kidney infection. Secondary to the persistent and now worsening symptoms she presents for evaluation. Patient denies any loss of bowel bladder control or IV drug use. She states has been no excessive activity or trauma prior to the pain beginning PFSH PFSH Medical History Migraine Alcohol abuse Home Medications ???Medication ???Instructions ???Recorded ???Last Taken ???Type ondansetron 4 mg disintegrating 4 mg PO TID PRN nausea and 05/21/24 Unknown Rx tablet vomiting #21 tabs oxycodone-acetaminophen 5 mg-325 1 tab PO Q6H PRN pain 3 days #12 05/21/24 Unknown Rx mg tablet (Percocet) tabs pantoprazole 20 mg tablet,delayed 20 mg PO DAILY 05/21/24 Unknown History release phenazopyridine 200 mg tablet 200 mg PO TID 2 days #6 tabs 05/21/24 Unknown Rx (Pyridium) sulfamethoxazole 800 1 tab PO BID 7 days #14 tabs 05/21/24 Unknown Rx mg-trimethoprim 160 mg tablet (Bactrim DS) Allergy/AdvReac Type Severity Reaction Status Date / Time bee venom protein (honey bee) Allergy Anaphylaxis Verified 02/25/22 10:52 cat dander (cats) Allergy Hives Verified 03/17/22 14:30 Social History Smoking Status: Never smoker ROS ROS ED Constitutional Constitutional ED: Denies chills or fever(s) Eyes Eyes: Denies change in vision ENT ENT ED: Denies sore throat Cardiovascular Cardiovascular: Reports racing heartbeat; Denies chest pain Respiratory/Chest Respiratory/Chest: Denies cough or dyspnea Gastrointestinal Gastrointestinal: Reports abdominal pain and nausea; Denies diarrhea or vomiting Genitourinary Genitourinary ED: Reports dysuria and urinary frequency Musculoskeletal Musculoskeletal: Reports back pain Integumentary Denies rash Neurologic Neurologic: Denies headache(s) Psychiatric Psychiatric: Reports anxiety Hematologic/Lymphatic Hematologic/Lymphatic: Denies easy bleeding or easy bruising EXAM Physical Exam Const Vital Signs: 05/21/24 06:16 05/21/24 06:28 05/21/24 07:19 Temperature 98.7 F 98 F Temperature Source Oral Oral Pulse Rate 134 H 89 Respiratory Rate 16 16 Blood Pressure 189/125 H 176/108 H 161/141 H Blood Pressure Mean 146 130 147 Pulse Ox 97 98 Oxygen Delivery Method Room Air Positive well nourished and well developed General Appearance ED: well developed; Negative for pallor HEENT HEENT Narrative: Normocephalic atraumatic Eyes PERRL and EOMs intact bilaterally General Eye ED: Negative for scleral icterus Neck supple Resp normal respiratory effort and clear to auscultation bilaterally Cardio regular rhythm Rate: tachycardic and other Other Details: Tachycardic rate with regular rhythm No murmurs rubs or gallop Radial and carotid pulses are equal and symmetric GI non-distended and no masses GI Narrative: Abdomen is soft and nondistended with normal active bowel sounds. Patient has pain with palpation in the suprapubic region without voluntary guarding or rigidity. No pulsatile mass or fluid wave. No organomegaly noted to suggest urinary retention. Auscultation: normoactive bowel sounds Palpation: soft Back/Spine no CVA tenderness Back/Spine Narrative: No CVA pain noted. Patient does have pain across the lower back bilaterally No overlying soft tissue changes to suggest trauma or infection No bony deformity or step-off of the thoracic or lumbar spine and no midline tenderness to palpation Extremity normal to inspection Extremity Narrative: No asymmetric edema no pitting edema negative Homans' sign bilaterally Neuro oriented x3, CN's II-XII intact bilaterally and no sensory deficits noted Sensorium / Orientation: alert Motor Exam: strength 5/5 throughout Psych Mood Affect: anxious Skin no rashes or lesions noted General Skin Exam: Negative for jaundice or pallor MDM MDM Lab Data Labs: Laboratory Results - last 24 hr 05/21/24 06:35 WBC 9.1 RBC 4.99 Hgb 12.9 Hct 40.4 MCV 81.0 MCH 25.9 L MC (more content not included)... Normal [facility] Urinalysis, Completeon 05-21 BACTERIA 1+ /hpf Normal None Seen [facility] Comment on above: Order Comment: CLEAN CATCH Performed By: #### L 400.0001 #### [facility] [address] [place], [place], [address] EPI,SQUAMOUS 5-10 SEEN Normal 5-10 [facility] Comment on above: Order Comment: CLEAN CATCH Performed By: #### L 400.0001 #### [facility] [address] [place], [place], [id number] RBC 0-5 SEEN Normal 0-5 [facility] Comment on above: Order Comment: CLEAN CATCH Performed By: #### L 400.0001 #### [facility] [address] [place], [place], [id number] WBC 10-25 SEEN Normal 0-5 [facility] Comment on above: Order Comment: CLEAN CATCH Performed By: #### L 400.0001 #### [facility] [address] [place], [address] Mucus Ql (Urine sed) 0 SEEN Normal [facility] Comment on above: Order Comment: CLEAN CATCH Performed By: #### L 400.0001 #### [facility] [address] [place], [address] Inital Evaluation (1) - PTon 02-01-2024 Inital Evaluation (1) - PT [facility] [place] [address] / REHABILITATION SERVICES INITIAL EVALUATION MR#: [id number] Acct: [id number] Name: MAI WHARTON Rep #: [id number] : 1970 53 From: José Miguel Gallo PT, ATC Referring Dr.: Dr. Juan Meza MD Status: R EG RCR Insurance: [facility] [place] [id number] SELF PAY INSURANCE Patient's Visit Information Visit Information Visit Information: MAI WHARTON is a 53 year old F referred to Physical Therapy by Dr. Juan Meza MD with a diagnosis of LAMA. Date of Evaluation: 02/01/24 Physical Therapist: José Miguel aGllo, PT, ATC Visit Plan Frequency: 2x /Week Duration: 4-6 Weeks Plan: Postural education, RRIS, DTR, mobs, scap strengthening, and HEP Subjective Subjective: Pt reports she has had LAMA and neck pain for many years. Pt reports she has had PT in the past which always has helped. Pt notes she is not always good at following up with her HEP. Pt notes she is on the phone and her computer a lot, and those are the positions that tend to increase her pain. Pt notes she has also been diagnosed with TMJ, which she has been given a jail guard to aid with. Pt reports she has tingling in her L UE with originates in the elbow region and extends to her fingers. Pt reports occasional sleep difficulty secondary to neck pain. Pt reports she will occasionally get dizzy when she looks quickly to her R. 4/10 pain while sitting here in the clinic, 6/10 pain at worst Pain Neck pain: Pain Intensity (Out of 10): 4 Pain Intensity Range: 6 Objective Objective: Neuro: B UE sensation is WNL to light touch. Hand is hyposensitive to light touch. Palpation: Pt has significant muscle guarding on R paraspinals, sub occip, and scalene muscle groups MMT: B UE's are strong and equal when compared bilaterally ROM: Pt is moderately limited with side bending, retraction, and extension. other motions are WNL Repeated movements: RRIS 10x2 NE. RFIS x 10 peripheralizes sx's to scap region Balance/Special Test Scores Oswestry Neck Score: 35 Goals Goal 1:: Decrease cervical spine pain x 50% to aid with sleep Goal Time Frame: 4-6 Weeks Goal 2:: Increase cervical spine ROM x 1 grade to aid with driving Goal Time Frame: 4-6 Weeks Goal 3:: Decrease R UE radiculopathy x 50% to aid with IADL's Goal Time Frame: 4-6 Weeks Goal 4:: I with HEP Goal Time Frame: 4-6 Weeks Rehabilitation Potential Physical Therapy Diagnosis: Pt has headaches, neck pain, and limited cervical spine ROM secondary to c/s disc derrangement Rehabilitation Potential: Good Anticipated Interventions Patient/Client Instruction: Educate patient on: Condition and Plan of Care For the Purpose of:: To improve self management Therapeutic Exercise to Include: Strength training, Passive ROM, Active ROM, Allyssa Exercises and Scapular Strength/Stabilization For the Purpose of:: To decrease pain, To increase ROM and To improve muscle performance and motor function Manual Therapy Techniques to Include: Mobilization and Soft tissue mobilization For the Purpose of:: To decrease pain and To increase ROM Text: Thank you for the opportunity to evaluate your patient. For Medicare and Medicare HMO plans, please review the plan of care and approve it. It will need to be FAXED BACK to us at [phone] for Medicare purposes. For Medicare only, by signing this I certify the plan of care. Please let me know if there are questions or concerns regarding this plan of care. Physician Signature: Date: _ 02/01/24 1105 CC: Dr. Juan Meza MD [facility] Signed [facility] CNPJulieta [facility] MAI WHARTON ([id number]) 1970 F Date Time Provider Department 12/27/23 DAWIT STEWART [facility] During your visit today, we recorded the following information about you: Dawit Stewart APRN.CNP 12/27/2023 7:10 AM Signed Please notify that covid testing negative. Continue with plan of care as discussed during visit. Letha Lazaro MA 12/27/2023 7:52 AM Signed Patient given results and verbalized understanding of instructions given. Letha Lazaro MA Allergies As of Date: 12/27/2023 Noted Allergy Reaction BEES 01/12/2007 16 - Unknown Date Reviewed: 12/26/2023 Reviewed by: Letha Lazaro MA - Fully Assessed Reason for Visit: Results [95] Prescriptions as of 12/27/2023 - albuterol HFA (VENTOLIN HFA) 90 mcg/actuation inhaler Inhale 2 Puffs as instructed every 4 hours as needed. Inhale by mouth as instructed. - predniSONE (DELTASONE) 10 mg tablet Take 5 tablets by mouth once daily for 1 day, THEN 4 tablets once daily for 1 day, THEN 3 tablets once daily for 1 day, THEN 2 tablets once daily for 1 day, THEN 1 tablet once daily for 1 day. - doxycycline monohydrate (MONODOX) 100 mg capsule Take 1 capsule by mouth two times a day for 5 days. - benzonatate (TESSALON PERLE) 100 mg capsule Take 1 capsule by mouth every 8 hours as needed for cough for up to 15 days. - LORazepam (ATIVAN) 0.5 mg Take one tab 30-40 min prior to flight - hydrOXYzine HCl (ATARAX) 10 mg tablet Take 1 tablet by mouth three times a day as needed. - baclofen 10 mg tablet Take 1 tablet by mouth once daily. - pantoprazole DR (PROTONIX) 20 mg tablet Take 1 tablet by mouth daily before breakfast. Take on empty stomach, 1/2 hr before meal. - rizatriptan (MAXALT KEYLINER) 10 mg disintegrating tablet Take 1 tablet by mouth as needed. May repeat in 2 hours if needed - promethazine (PHENERGAN) 25 mg tablet Take 1 tablet by mouth every 6 hours as needed. - EPINEPHrine (EPIPEN 2-ARLIN) 0.3 mg/0.3 mL auto-injector Inject 0.3 mL intramuscularly as needed. - EPINEPHrine (EPIPEN) 0.3 mg/0.3 mL auto-injector Inject 0.3 mL subcutaneously as needed. Problem List As Of Date 12/27/2023 Noted Resolved Encounter for routine gynecological examination*06/03/2009 Class: Chronic GERD (gastroesophageal reflux disease) [K21.9] 06/03/2009 Lipoma of torso [D17.1] 12/13/2017 Anxiety and depression [F41.9, F32.A] 04/13/2021 Encounter for screening for diabetes mellitus [*04/13/2021 Idiopathic scoliosis [M41.20] 04/13/2021 Back spasm [M62.830] 01/26/2022 Migraine without status migrainosus, not intrac*02/18/2022 Well adult exam [Z00.00] 02/10/2023 Screening for colon cancer [Z12.11] 02/10/2023 Encounter Status:Closed by LETHA LAZARO on 12/27/23 [facility] Rama 12-26-2023 CN[facility] Office Visit ([facility] ) ----- AKIKOMAI L ([id number]) 1970 F Date Time Provider Department 12/26/23 8:45 AM VAN CARVAJAL [facility] During your visit today, we recorded the following information about you: Temperature Pulse Respiration Blood pressure 98.1 degrees 136/minute 20/minute 154/104 Weight 85.2 kg Van Carvajal MD 12/26/2023 9:46 AM Signed Patient presents with: Cough: x 4 days HPI: Feeling sick for 4 days. Positive symptoms: Cough, Shortness of breath, Wheezing, Chest tightness, improved Sinus pressure, Nasal Congestion, Fever (last fever 2 days ago), Malaise, Negative symptoms: OTC: Ibuprofen, albuterol Denies history of COVID or pneumonia. She has allergy induced asthma. No history of smoking. Home COVID test negative. Hx of white coat hypertension and tachycardia. BP taken last week was 120s/80s last week. She is flying to [place] tomorrow. PAST MEDICAL HISTORY Diagnosis Date Anxiety and depression 04/13/2021 Back spasm 01/26/2022 Takes prn baclofen (also helps headache's prn) GERD (gastroesophageal reflux disease) 06/03/2009 Uses PRN prevacid as of 2008 Heartburn Idiopathic scoliosis 04/13/2021 Migraine without status migrainosus, not intractable 02/18/2022 Well adult exam 02/10/2023 Last done: 02/10/2023 MEDICATIONS: Current Outpatient Medications Medication Sig hydrOXYzine HCl (ATARAX) 10 mg tablet Take 1 tablet by mouth three times a day as needed. baclofen 10 mg tablet Take 1 tablet by mouth once daily. pantoprazole DR (PROTONIX) 20 mg tablet Take 1 tablet by mouth daily before breakfast. Take on empty stomach, 1/2 hr before meal. rizatriptan (MAXALT KEYLINER) 10 mg disintegrating tablet Take 1 tablet by mouth as needed. May repeat in 2 hours if needed promethazine (PHENERGAN) 25 mg tablet Take 1 tablet by mouth every 6 hours as needed. EPINEPHrine (EPIPEN 2-ARLIN) 0.3 mg/0.3 mL auto-injector Inject 0.3 mL intramuscularly as needed. albuterol HFA (VENTOLIN HFA) 90 mcg/actuation inhaler Inhale 2 Puffs as instructed every 4 hours as needed. Inhale by mouth as instructed. EPINEPHrine (EPIPEN) 0.3 mg/0.3 mL auto-injector Inject 0.3 mL subcutaneously as needed. No current facility-administered medications for this visit. ALLERGIES: ALLERGIES Allergen Reactions Bees Unknown Hayfever [Homeopath* Unknown VITALS: BP 154/104 Pulse (!) 136 Temp 36.7 ?C (98.1 ?F) Resp 20 Wt 85.2 kg (187 lb 13.3 oz) LMP 01/24/2023 (Within Days) SpO2 99% BMI 33.27 kg/m? . PHYSICAL EXAM: GEN: pleasant, mildly ill appearing HEENT: PERRL, EOMI, conjunctiva clear Ears: canals clear. TMs without erythema, bulge, or effusion Sinuses: non-tender frontal sinus, non-tender maxillary sinuses Throat: moist mucous membranes, mild erythema, no exudate Neck: supple, no thyromegaly, no lymphadenopathy HEART: rate around 100 during my exam, regular rhythm, no murmurs LUNGS: few faint scattered right mid to lower lung wheezes or crackles, no increased WOB; productive sounding cough. ASSESSMENT/PLAN: 1. Acute cough - ICD9: 786.2, ICD10: R05.1 (primary diagnosis) 2. Wheezing - ICD9: 786.07, ICD10: R06.2 - XR CHEST 2V FRONTAL/LAT - No acute radiographic abnormality. Viral URI with bronchitis. Repeat - COVID NAAT, UPPER RESPIRATORY, ROUTINE - DOXYCYCLINE MONOHYDRATE 100 MG CAPSULE - plans to hold unless fever returns or symptoms worsen. - BENZONATATE 100 MG CAPSULE - ALBUTEROL SULFATE HFA 90 MCG/ACTUATION AEROSOL INHALER - PREDNISONE 10 MG TABLET taper. She would like Ativan refill for flights. Request sent to PCP. Van Carvajal MD Allergies As of Date: 12/26/2023 Noted Allergy Reaction BEES 01/12/2007 16 - Unknown Date Reviewed: 12/26/2023 Reviewed by: Letha Lazaro MA - Fully Assessed Reason for Visit: Cough [28] Cmt: x 4 days Primary Visit Diagnosis:Acute cough [R05.1] Other Visit Diagnosis:Wheezing [R06.2] Order(s):XR CHEST 2V FRONTAL/LAT [8742461] Order #: [id number] FUTURE COVID NAAT, UPPER RESPIRATORY, ROUTINE [SQCOVID] Order #: [id number]. #:[id number] albuterol HFA (VENTOLIN HFA) 90 mcg/actuation inhalerInhale 2 Puffs as instructed every 4 hours as needed. Inhale by mouth as instructed.Disp: 1 EachRfl: 0 predniSONE (DELTASONE) 10 mg tabletTake 5 tablets by mouth once daily for 1 day, THEN 4 tablets once daily for 1 day, THEN 3 tablets once daily for 1 day, THEN 2 tablets once daily for 1 day, THEN 1 tablet once daily for 1 day.Disp: 15 tabletRfl: 0 doxycycline monohydrate (MONODOX) 100 mg capsuleTake 1 capsule by mouth two times a day for 5 days.Disp: 10 capsuleRfl: 0 benzonatate (TESSALON PERLE) 100 mg capsuleTake 1 capsule by mouth every 8 hours as needed for cough for up to 15 days.Disp: 30 capsuleRfl: 0 Prescriptions as of 12/26/2023 - albuterol HFA (VENTOLIN HFA) 90 mcg/actuation inhaler Inhale 2 Puffs as (more content not included)... Normal [facility] SARS-CoV-2 RNA Resp Ql REBA+p robeon 12-26-2023 SARS-CoV-2 (COVID-19) RNA REBA+probe Ql (Resp) COVID 19 RESULT: Not detected The method used is RT-PCR or an equivalent NAAT method. Reference Range (the expected result in uninfected individuals): Not detected Normal [facility] Comment on above: Performed By: #### 9 [id number] ####[facility] [id number] [address] [facility] XR CHEST 2V FRONTAL/LATon XR CHEST 2V FRONTAL/LAT * * *Final Report* * * DATE OF EXAM: Dec 26 2023 9:24AM WOX [id number] - XR CHEST 2V FRONTAL/LAT / PROCEDURE REASON: Acute cough * * * * Physician Interpretation * * * * EXAMINATION: CHEST RADIOGRAPH (2 VIEW FRONTAL and LATERAL) CLINICAL HISTORY: Acute cough MQ: XC2_6 EXAM DATE/TIME: 12/26/2023 9:24 AM COMPARISON: No relevant prior studies available. RESULT: Lines, tubes, and devices: None. Lungs and pleura: No consolidation. No lung mass. No pleural effusion. No pneumothorax. Cardiomediastinal silhouette: Normal cardiomediastinal silhouette. Bones and soft tissues: Unremarkable. IMPRESSION: No acute radiographic abnormality. National Business Director: MING Transcribe Date/Time: Dec 26 2023 9:26A Dictated by : FEDERICO HUFF MD This examination was interpreted and the report reviewed and electronically signed by: FEDERICO HUFF MD on Dec 26 2023 9:27AM EST [id number] Normal [facility] XR Chest PA and Lateralon IMPRESSION: No acute radiographic abnormality. National Business Director: MING Transcribe Date/Time: Dec 26 2023 9:26A Dictated by : FEDERICO HUFF MD This examination was interpreted and the report reviewed and electronically signed by: FEDERICO HUFF MD on Dec 26 2023 9:27AM EST DIVISION OF RADIOLOGY * * *Final Report* * * DATE OF EXAM: Dec 26 2023 9:24AM WOX 5291 - XR CHEST 2V FRONTAL/LAT / PROCEDURE REASON: Acute cough * * * * Physician Interpretation * * * * EXAMINATION: CHEST RADIOGRAPH (2 VIEW FRONTAL & LATERAL) CLINICAL HISTORY: Acute cough MQ: XC2_6 EXAM DATE/TIME: 12/26/2023 9:24 AM COMPARISON: No relevant prior studies available. RESULT: Lines, tubes, and devices: None. Lungs and pleura: No consolidation. No lung mass. No pleural effusion. No pneumothorax. Cardiomediastinal silhouette: Normal cardiomediastinal silhouette. Bones and soft tissues: Unremarkable. DIVISION OF RADIOLOGY Provider, [facility] - 12/26/2023 * * *Final Report* * * DATE OF EXAM: Dec 26 2023 9:24AM WOX 5291 - XR CHEST 2V FRONTAL/LAT / PROCEDURE REASON: Acute cough * * * * Physician Interpretation * * * * EXAMINATION: CHEST RADIOGRAPH (2 VIEW FRONTAL & LATERAL) CLINICAL HISTORY: Acute cough MQ: XC2_6 EXAM DATE/TIME: 12/26/2023 9:24 AM COMPARISON: No relevant prior studies available. RESULT: Lines, tubes, and devices: None. Lungs and pleura: No consolidation. No lung mass. No pleural effusion. No pneumothorax. Cardiomediastinal silhouette: Normal cardiomediastinal silhouette. Bones and soft tissues: Unremarkable. IMPRESSION IMPRESSION: No acute radiographic abnormality. National Business Director: MING Transcribe Date/Time: Dec 26 2023 9:26A Dictated by : FEDERICO HUFF MD This examination was interpreted and the report reviewed and electronically signed by: FEDERICO HUFF MD on Dec 26 2023 9:27AM EST [facility] Radiology [facility]ative[facility] PA and LateralOrder ed By: Ccf Provider on 12-26-2023 [facility] XR Toes - right 3 Viewson IMPRESSION: No radiographic evidence of acute osseous injury National Business Director: [facility] Transcribe Date/Time: Aug 08 2023 1:27P Dictated by : YAZAN TAYLOR MD This examination was interpreted and the report reviewed and electronically signed by: YAZAN TAYLOR MD on Aug 08 2023 1:28PM EST DIVISION OF RADIOLOGY * * *Final Report* * * DATE OF EXAM: Aug 08 2023 1:27PM WOX 5269 - XR TOE 3V AP/LAT/OBL RT / PROCEDURE REASON: Toe injury, right, initial encounter * * * * Physician Interpretation * * * * TITLE: XR TOE 3V AP/LAT/OBL RT CLINICAL INDICATION: Fifth toe injury TECHNIQUE: 3 view radiographic study of the right fifth toe COMPARISON: None FINDINGS: No acute fracture or dislocation identified. No radiopaque foreign body. DIVISION OF RADIOLOGY Provider, [facility] - 08/08/2023 * * *Final Report* * * DATE OF EXAM: Aug 08 2023 1:27PM WOX 5269 - XR TOE 3V AP/LAT/OBL RT / PROCEDURE REASON: Toe injury, right, initial encounter * * * * Physician Interpretation * * * * TITLE: XR TOE 3V AP/LAT/OBL RT CLINICAL INDICATION: Fifth toe injury TECHNIQUE: 3 view radiographic study of the right fifth toe COMPARISON: None FINDINGS: No acute fracture or dislocation identified. No radiopaque foreign body. IMPRESSION IMPRESSION: No radiographic evidence of acute osseous injury National Business Director: [facility] Transcribe Date/Time: Aug 08 2023 1:27P Dictated by : YAZAN TAYLOR MD This examination was interpreted and the report reviewed and electronically signed by: YAZAN TAYLOR MD on Aug 08 2023 1:28PM EST [facility] Radiology Study observation (narrative) [facility] XR Toes - right 3 ViewsOrder ed By: Ccf Provider on 08-08-2023 [facility] No Panel Informationon 09-28 Ethyl Alcohol Level 14.0 mg/[facility]: Comment on above: The serum:whole bloo d ethanol ratio is approximately 1.14and varies slightly with hematocrit. Medical Alcohol reference interval and critical value innon-tolerant individuals; 50 - 100 Impairment 100 Intoxication 100 - 250 Severe Poisoning 250 - 400 Deep/possible fatal coma Absolute lymphocyte counton 09-27-2021 Lymphocytes Auto (Unsp spec) [#/Vol] 1.95 10*3/uL 0.83-4.51 [facility] Work Phone: Basophil percentageon 2021 Basophils/100 WBC (Bld) 1.0 % 0-1 [facility] Work Phone: Chloride [Moles/Vol] 109 mmol/L 98-107 [facility] Work Phone: Eosinophils/100 WBC (Bld) 1.6 % 0-5 [facility] Work Phone: [phone] Glucose [Mass/Vol] 139 mg/dL 74-106 [facility] Work Phone: [phone] Comment on above: Fasting Glucose resu lt greater than or equal to 126 mg/dL suggests DIABETES MELLITUS per A.D.A. criteria. Neutrophils (Bld) [#/Vol] 2.9 10*3/uL 2.0-7.7 [facility] Work Phone: [phone] Neutrophils/100 WBC (Bld) 51.2 % 47-70 [facility] Work Phone: [phone] Potassium [Moles/Vol] 3.7 mmol/L 3.5-5.1 [facility] Work Phone: [phone] Sodium [Moles/Vol] 141 mmol/L 136-145 [facility] Work Phone: WBC (Bld) [#/Vol] 5.7 10*3/uL 4.4-11.0 [facility] Work Phone: [phone] Beta hCG serum qualon 2021 Beta HCG ( test) Ql Negative [facility] Work Phone: [phone] Blood erythrocytes count (nu mber/volume)on 09-27-2021 RBC (Bld) [#/Vol] 4.80 10*6/uL 4.2-5.4 [facility] Work Phone: Blood hemoglobin measurement (mass/volume)on 09-27-2021 Hemoglobin (Bld) [Mass/Vol] 9.4 g/dL 12.0-15.0 [facility] Work Phone: Blood lymphocytes/100 leukoc yteson 09-27-2021 Lymphocytes/100 WBC (Bld) 34.1 % 19-41 [facility] Work Phone: Blood manual differential co mment interpretation (narrative result)on 09-27-2021 Manual differential comment Rafi (Bld) [Interp] SCANNED [facility] Work Phone: Blood monocytes/100 leukocyt eson 09-27-2021 Monocytes/100 WBC (Bld) 11.9 % 0-10 [facility] Work Phone: Blood platelet mean volumeon 09-27-2021 Platelet mean volume (Bld) [Entitic vol] 9.0 fL 6.2-12.0 [facility] Work Phone: Determination of erythrocyte mean corpuscular volume (MCV)on 09-27-2021 MCV (RBC) [Entitic vol] 67.5 fL 81-99 [facility] Work Phone: Hematocrit Auto (Bld) [Volum e fraction]on 09-27-2021 Hematocrit (Bld) [Volume fraction] 32.4 % 37-47 [facility] Work Phone: Laboratory - Chemistry and C hemistry - challengeon 09-27-2021 CO2 [Moles/Vol] 20.0 mmol/L 21.0-32.0 [facility] Work Phone: Urea nitrogen/Creatinine [Mass ratio] 4.9 mg/mg 10-20 [facility] Work Phone: Laboratory - Drug toxicology on 09-27-2021 Amphetamines Ql (U) Negative [facility] Work Phone: Benzodiazepines Ql (U) Negative [facility] Work Phone: Cannabinoids Screen Ql (U) Positive [facility] Work Phone: Cocaine Ql (U) Negative [facility] Work Phone: Opiates Ql (U) Negative [facility] Work Phone: Laboratory - Hematology and Cell countson 09-27-2021 Anisocytosis Ql (Bld) 1+ [facility] Work Phone: Erythrocyte distribution width (RBC) [Entitic vol] 53.4 fL 35.1-43.9 [facility] Work Phone: Erythrocyte distribution width (RBC) [Ratio] 22.3 % 11.6-14.6 [facility] Work Phone: Immature granulocytes/100 WBC (Bld) 0.200 % 0.0-0.9 [facility] Work Phone: Comment on above: IG% - Immature Granu locytes (promyelocytes, myelocytes and metamyelocytes) > 1% indicates that a LEFT SHIFT is Present. MCH (RBC) [Entitic mass] 19.6 pg 27.0-32.0 [facility] Work Phone: Nucleated RBC/100 WBC (Bld) [Ratio] 0 % 0-5 [facility] Work Phone: MCHC Auto (RBC) [Mass/Vol]on 09-27-2021 MCHC (RBC) [Mass/Vol] 29.0 g/dL 32-36 [facility] Work Phone: No Panel Informationon 09-27 MDMA (Ecstasy) Screen Negative [facility] Work Phone: Urine Barbiturates Screen Negative [facility] Work Phone: Urine Drug Screen Comment [facility] Work Phone: Comment on above: CONFIRMATORY TESTING FOR ALL POSITIVE URINE DRUG SCREENRESULTS WILL ONLY BE SENT OUT UPON PHYSICIAN ORDER. VISTA Urine Drug Screen methods provide only preliminaryanalytical test results. A more specific alternate chemicalmethod must be used in order to obtain a confirmedanalytical result. Gas chromatography/mass spectrometery(GC/MS) is the preferred confirmatory method. Clinicalconsideration and professional judgement should be appliedto any drug of abuse test result, particularly whenpreliminary positive results are used. URINE TCA TESTING MUST BE ORDERED SEPARATELY. USE TESTMNEMONIC: [facility] Urine Methadone Screen Negative [facility] Work Phone: Estimated Creatinine Clearance Calc 54.05 ml/min [facility] Work Phone: Estimated GFR (MDRD) Amer 73 mL/min >60 [facility] Work Phone: Comment on above: GFR Calc Estimated GFR (MDRD) Non-Af Amer 60 mL/min >60 [facility] Work Phone: Comment on above: Non- GFR Calc Platelets bldon 09-27-2021 Platelets (Bld) [#/Vol] 332 10*3/uL 150-450 [facility] Work Phone: Serum or plasma calcium zakiya urement (mass/volume)on 09-27-2021 Calcium [Mass/Vol] 8.6 mg/dL 8.5-10.1 [facility] Work Phone: Serum or plasma creatinine m easurement (mass/volume)on 09-27-2021 Creatinine [Mass/Vol] 1.03 mg/dL 0.55-1.02 [facility] Work Phone: Comment on above: The validity of the calculated GFR & GFRAA in patients over 70 years has not been determined. Clinical correlation is essential. Serum or plasma urea nitroge n measurement (mass/volume)on 09-27-2021 Urea nitrogen [Mass/Vol] 5 mg/dL 7-18 [facility] Work Phone: Thin prep Papanicolaou smear with manual screeningon 09-27-2021 Thin prep Papanicolaou smear with manual screening 12 5-15 [facility] Work Phone: Urine phencyclidine (PCP) de tectionon 09-27-2021 Phencyclidine Ql (U) Negative [facility] Work Phone: ANES Cyndi 12-19-2017 ANES POST HNO ID: [id number] thor: Jason Porrase: AnesthesiologyAuthor Type: AnesthesiologistType: Anesthesia PostOpFiled: 12/19/2017 2:57 PMNote Text:POST ANESTHESIA EVALUATION NOTESERVICE DATE: 12/19/2017SERVICE TIME: 10DOB: 1970Vitals: [phone] [id number]: 37.1 ?C (98.8 ?F) 36.8 ?C (98.2 ?F) 36.6 ?C (97.9 ?F) [id number] 458170WC: 147/86 145/85 156/95 148/85 [id number] 862339Jjisj: 86 84 92 93 [id number] 341602 550625 520789Qcgb: 036491 653069 615496 864303HpB6: 97% 96% 100% 100%Validated Vital Signs: YesPOST ANES STATUS: No apparent anesthetic complications. The patient isappropriately hydrated with stable respiratory and cardiovascular status.Patient has safe and adequate airway control. The patient has appropriatepain relief and no significant post operative nausea or vomiting. Thepatient has achieved baseline mental status.Further assessment by Anesthesia Service: NoneOther Remarks:SIGNATURE: Jason Fernandez MD PATIENT NAME: Mai RosenthalemDATE: December 19, 2017 : 2:57 PM PAGER/CONTACT #: [phone] [facility] ANES PREOPon 12-19-2017 ANES PREOP HNO ID: [id number] thor: Jason Porrase: AnesthesiologyAuthor Type: AnesthesiologistType: Anesthesia PreOpFiled: 12/19/2017 6:58 AMNote Text: ANESTHESIOLOGY DAY OF SURGERY NOTESERVICE DATE: 12/19/2017SERVICE TIME: 6:58 AMDOB: 1970Procedure(s) (LRB):EXCISION SOFT TISSUE MASS OF POSTERIOR BACK = / > 5 CM (N/A)Surgeon(s):Ameya KruegeranEstimated body mass index is 33.48 kg/m? as calculated from the following: Height as of this encounter: 160 cm (5' 3). Weight as of this encounter: 85.7 kg (189 lb).Most recent hematocrit and potassium results:No results found for this basename: HCT,HEMATOCRIT,K,POTASSIU NAVID DOS/PREOP NOTE: Vitals: [id number]: 165/98Pulse: 112Resp: 18Temp: 37.1 ?C (98.8 ?F)TempSrc: Temporal ArterySpO2: 97%Weight: 85.7 kg (189 lb)Height: 160 cm (5' 3)ACTIVE PROBLEM LISTRoutine Gynecological ExaminationGerd (Gastroesophageal Reflux Disease)Mass On BackNo past medical history on file.PAST SURGICAL HISTORYProcedure Laterality Date- EXTRACTION ERUPTED TOOTHFAMILY HISTORYProblem Relation Age of Onset- Cancer Mother cholangiocarcinoma- Colon Cancer Other none- Coronary Artery Disease Other none- Diabetes Other noneSocial History:Social HistorySubstance Use Topics- Smoking status: Never Smoker- Smokeless tobacco: Not on file- Alcohol use Yes Comment: rareJillian current facility-administered medications on file prior to encounter.Current Outpatient Prescriptions on File Prior to Encounter:lansoprazole (PREVACID) 15 mg capsule Take 15 mg by mouth once daily.EPINEPHrine 0.3 mg/0.3 mL INTRAMUSC. PnIj Inject 0.3 mL subcutaneously asneeded.Current Facility-Administered Medications:lactated ringers infusion 30 mL/hr INTRAVENOUS CONTINUOUS Ameya TGuttmanceFAZolin iv piggyback 2 g in D5W (iso-osmotic) 100 mL (ANCEF) 2 gINTRAVENOUS Pre-Op Once Ameya KruegeranAllergies:ALLERGIE SAllergen Reactions- Bees- Hayfever [Homeopath*DOS EXAM: Adequate NPO status: YesAnesthetic risks, benefits, alternatives, personnel and consent discussed:YesPatient agrees to proceed: YesPrevious Anesthesia: No history of adverse event.Airway Assessment: MP 2; Neck ROM: Full ROM without neurologic symptoms;Airway Evaluation: No significant abnormalitiesSymptoms of Sleep Apnea: NoneDentition: Teeth intactAdditional Physical Exam:Lungs: Patient health status unchanged since recent history and physical.See history and physical for exam findings.Cardiac: Patient health status unchanged since recent history andphysical. See history and physical for exam findings.Additional Pertinent Findings: N/ABlood Products: Not anticipated for this procedure.Anesthetic Plan: General, Standard ASA Monitors and MAC with SedationPain Management Plan: Parenteral or OralASA Class: 1Other Medical Problems: NoneI have interviewed and examined the patient. I have reviewed the medicalrecord and/or the pre-anesthesia evaluation, pertinent labs, and testresults.Significant changes in the patient's condition since the History andPhysical, not otherwise documented in primary service progress notes: NoThis contains updated information obtained within 48 hours ofSurgery/Procedure.SIGNA TURE: Jason Fernandez MD PATIENT NAME: Mai WhartonDATE: December 19, 2017 : 6:58 AM CSN: [id number] [facility] BRIEF OP NOTon 12-19-2017 BRIEF OP NOT HNO ID: [id number] thor: Ameya Pattersonervice: General SurgeryAuthor Type: PhysicianType: Brief Op NoteFiled: 12/19/2017 8:29 AMNote Text:BRIEF OPERATIVE NOTATION FOR SURGICAL PROCEDURE.Mai Rosenthaljesus 1970 [id number] femaleLOG ID: [id number]/Procedure Date: 12/19/2017Incision/Procedu re Start Time: 7:41 AMIncision Close/Procedure End Time: 8:21 AMSurgeon(s)/Proceduralis t(s) and Automobile Glass Technician(s):Surgeon(s) and Role: * Ameya Michael - PrimaryPhysician Automobile Glass Technician: Kimmie Hernandez) Ana PHYSICIAN:OutpatientDEPT: JOCELINE PROVIDER: Cody POS:[id number] YENNY: Monitored Anesthesia CareASA CLASS: 2 - mildDIAGNOSIS: exicsion of lipoma backPROCEDURE: Mass - Back and Flank - Subcutaneous >3cm - - removal ofskin tag - not sentIVF: 1000EBL: 15Specimens: lipomaADDITIONAL DIAGNOSES:FINDINGS: [id number]: NonePMHx - No past medical history on file.COMORBIDITIES - NonePost Op Occurrences - NoneWound Classification - CleanOperative note dictated in the dictation system. - [id number] Michael MD [facility] HISTORY PHYSICALon 8 HISTORY PHYSICAL HNO ID: [id number] thor: Ameya Pattersonervice: General SurgeryAuthor Type: PhysicianType: HANDPFiled: 12/19/2017 7:19 AMNote Text:HISTORY AND PHYSICAL?Mai Wharton1970??REFERCRISTOBAL Sinha PHYSICIAN: Self?CHIEF COMPLAINT: Enlarging lump on back?HPI: The patient is a 47 year old female with complaint of enlarging lumpon back. Patient states she has had this for 11+ years. She notes it isso large that she becomes self conscious as it now shows through herclothing. She wishes to have this removed. Patient states she isotherwise in good health. She denies any known cardiac or respiratoryissues.?Anthnoy whyte notes extreme anxiety associated with medical visits and testing,noting that she had vomiting earlier today in anticipation of appointment. She notes that her blood pressure is usually very good at home, owruub899/70, but gets extremely high any time she has a medical visit. Shestates she is worried about the lump possibly being something bad andthis is making her intensely anxious.??SIGNIFICANT MEDICAL PROBLEMS:PAST MEDICAL HISTORYNo past medical history on file.??OPERATIONS:PAST SURGICAL HISTORYPAST SURGICAL HISTORYProcedure Laterality Date- EXTRACTION ERUPTED TOOTH ?CURRENT MEDICATIONS:CURRENT MEDICATIONSCurrent Outpatient Prescriptions:lansoprazol e (PREVACID) 15 mg capsule Take 15 mg by mouth once daily.Disp: Rfl:ciprofloxacin (CIPRO) 500 mg ORAL tablet Take 1 tablet by mouth twicedaily. For 5 days per episode (traveler's diarrhea) Disp: 20 tablet Rfl: 0EPINEPHrine 0.3 mg/0.3 mL INTRAMUSC. PnIj Inject 0.3 mL subcutaneously asneeded. Disp: 1 mL Rfl: 2esomeprazole mag trihydrate(NEXIUM 40 MG CAP) Take one(1) capsule daily.Disp: 30 Rfl: 5?No current facility-administered medications for this visit.?ALLERGIES: Bees; Hayfever [Homeopathic Products]?PERSONAL HISTORY:SOCIAL HISTORYSocial History Marital status: Spouse name: Trevon Years of education: 16 Number of children: 4?Occupational HistoryOccupation Employer Commenthomemaker?Social History Main Topics Smoking status: Never Smoker? Alcohol use: Yes Comment: rare Drug use: No Sexual activity: Yes Partners with: Male Comment: had vasectomy??FAMILY HISTORY:FAMILY HISTORYFAMILY HISTORYProblem Relation Age of Onset- Cancer Mother ?? ? cholangiocarcinoma- Colon Cancer Other ?? ? none- Coronary Artery Disease Other ?? ? none- Diabetes Other ?? ? none??REVIEW OF SYMPTOMS: The review of systems data was entered by the nurse and reviewed by me?Nursing Notes:Ray Grimes LPN 12/06/2017 2:41 PM SignedREVIEW OF SYSTEMS: General: The patient denies fatigue, denies weight loss, deniesweight gain, denies feeling hot, and denies feelings of cold. Eyes: The patient denies glaucoma, denies eye injury/surgery, doesnot wear glasses or contacts. Ear/Nose/Throat: The patient NOTES allergies, denies hayfever,denies ear infections, and denies bloody noses. Cardiovascular: The patient denies chest pain, denies heart disease,denies high blood pressure,denies cardiac stent, denies prior heartattack, denies irregular heart beat, denies high cholesterol, denies poorcirculation, denies heart failure, other cardiac issues, deniesclaudication, denies cold feet, denies peripheral arterial stent. Respiratory: The patient denies tuberculosis, denies pneumonia,denies frequent cough, denies pulmonary embolism, denies shortness ofbreath, and denies coughing up blood. Gastrointestinal: The patient denies difficulty swallowing, NOTESacid reflux, denies ulcers, denies vomiting, denies jaundice/hepatitis,denies gallbladder problems, denies black or tarry stools, denieshemorrhoids, denies bleeding from rectum, denies diverticulitis, deniesconstipation, denies diarrhea, denies loss of stool control, and denieshernias. Kidney/Bladder: The patient denies kidney stones, denies urineinfections, and denies bloody urine. Skin: The patient denies a history of skin cancer, deniesbleeding/changing moles, and denies a history of skin rash. Neurologic: The patient denies a history of epilepsy/convulsions,josefa es headaches, denies head/spinal injuries, and denies stroke/TIA. Psychiatric: The patient denies psychiatric medications, deniesdepression, and denies voices, denies substance abuse. Endocrine: The patient denies thyroid disorders, denies diabetes,and denies hormonal problems. Hematologic: The patient denies a history of bruising, deniesbleeding, and denies anemia, denies blood clots. Infections: The patient denies a history of measles and mumps,denies rheumatic fever, and denies sexually transmitted diseases. Musculoskeletal: The patient denies back pain/injury, denies backproblems, denies sciatica, denies knee/foot trouble, denies arthritis, ordenies gout.??When was patient's last Mammogram screening? N/A? Last Colonoscopy: N/a?Ray SOTELO have confirmed and edited as necessary, the PFSH and ROS obtained byothers.?PHYSICAL EXAMINATION:?General: The patient is 47 year old female, well nourished, appearsanxious but in no acute distress. The patient is oriented to time, place,and person.?VITALS: Blood pressure 143/98, pulse (!) 140, height 161.3 cm (5' 3.5),weight 85.7 kg (189 lb). Body mass index is 32.95 kg/m?.?HEENT: Normal cephalic, ataumatic, pupils are equally round, sclera areanicteric, mucous membranes are moist, oropharynx is clear. Neck has nomasses, asymmetry or lymphadenopathy.?Respirat ory: Clear to auscultation and percussion. Normal respiratoryexcursion and pattern.?Cardiac: Examination is regular rate and rhythm.?Extremities: no clubbing, cyanosis or edema. No adenopathy.?Other: +12 cm soft well demarcated mass right mid back??LABORATORY VALUES: As Noted?RADIOLOGIC STUDIES: As Noted??AssessmentIMPRESSI ON: subcutaneous mass right mid back x 11+ years, most consistentwith a large lipoma. Anxiety related to medical appointments and testing?PLAN: I have reviewed my findings with Dr. Michael. We will first obtainultrasound imaging for further evaluation due to size of lesion, then willplan for excision in OR with general anesthesia. Consent: The proposedprocedure, risks, benefits, and alternatives were discussed with thepatient in detail. All the patient's questions were answered, and thepatient voiced understanding. The patient desires to proceed withsurgery.?Patient notes extreme anxiety to the point of panic associated withmedical appointments and testing. She is requesting something to takethe edge off the day she comes in for her ultrasound imaging. She waswritten for 1 tablet of Ativan to take 30 minutes prior to imaging.Patient instructed to follow up once imaging completed to schedulesurgery.?Patient verbalized understanding of all above and agreed with plan?Diagnoses: (R22.2) Mass of subcutaneous tissue of back (primary encounterdiagnosis)(F41.1 ) Pre-operative anxiety? Mirela Coronel PA-C [facility] NURSING PROGon 12-19-2017 NURSING PROG HNO ID: [id number] thor: Kristen (Rn) GEORGE Oconnorervice: NursingAuthor Type: Registered NurseType: Nursing Progress NoteFiled: 12/19/2017 8:48 AMNote Text:0826 pt to PACU. Awake AND talking. MENDEZ TCx4. Denies pain. R upper back drsgDANDI. PIV DANDI. VSS no s/sx of distress. [facility] NURSING PROG HNO ID: [id number] thor: Renay (Rn) Jo Ann RNService: NursingAuthor Type: Registered NurseType: Nursing Progress NoteFiled: 12/19/2017 7:12 AMNote Text: Nursing Progress NotePatient Name: Mai WhartonMRN: [id number] Location: OR Surgery/OR Surgery pt ready for OR, call light in reach, consent needs to be signed prior Tigre, called to bedside, to take backpack.This note was completed by: Renay Cherry RN Normal [facility] OPERATIVE NOon 12-19-2017 OPERATIVE NO HNO ID: [id number] thor: Ameya Pattersonervice: General SurgeryAuthor Type: PhysicianType: Operative ReportFiled: 12/20/2017 10:03 AMNote Text:[facility] Operative ReportMAI WHARTON LDOB: 1970 AGE: 47 SEX: FMRN: [id number] ACCTNUM: [id number] SVC: GENS LOCATION: [address] PHYSICIAN: AMEYA WHITNEYTE OF PROCEDURE: 12/19/2017SURGEON: Ameya Michael M.D.PHP ENGINEER: NONEANESTHESIA: Sedation was local MAC.PREOPERATIVE DIAGNOSIS(ES): Right posterior back lipoma.POSTOPERATIVE DIAGNOSIS(ES): Right posterior back lipoma and small skintag.NAME OF OPERATION: Excision of back, subcutaneous greater than 3 cm andremoval of skin tag.INDICATIONS:ESTIMATED BLOOD LOSS: 15 cc.COMPLICATIONS: The patient taken to PACU in stable condition. SPECIMENS: Lipoma, lipoma measured 13 x 5 x 3 cm. DRAINS: None.ASA: 2.FINDINGS: As described above. The skin tag was not sent. The patientreceived 1000 cc of normal salinePROCEDURE: The patient's lipoma was marked in the holding area on [facility]. The patient concurred this planned operative site. She also noteda skin tag on the left upper back which she wished to have removed also,this was a very small skin tag, under 2 mm. The patient was brought backto the operative suite. Sign-in was performed verifying the patient,site, procedure, position, antibiotic and VTE prophylaxis. The patientreceived 2 grams of Ancef and sequential compression device was placed.The patient was positioned in the prone position. Following IV sedation,the back was prepped and draped in the fashion. Time-out was performedverifying the patient, site, procedure, position, 50:50 mixture of 1%lidocaine and 0.25% Marcaine was injected around the lipoma and then alongthe planned course of skin incision. Incision was made and the lipomawas multilobulated between connective tissue in this portion of the backand had to be gently dissected but with tension on the lipomatous pocketsand division sharply and with cautery. Once the lipoma was clearlyremoved, the area was checked for hemostasis, which was good. There wereno additional areas of lipomatous tissue that had to be removed. Thecavity was irrigated with saline and aspirated. Following this, localanesthetic was injected below the small skin tags and this was removedwith electrocautery. The subcutaneous skin closed with a 3-0 Polysorbsuture. Skin was closed with 4-0 Biosyn running subcuticular suture.Dermabond was applied. The patient tolerated the procedure well, broughtto the recovery room in stable condition.START TIME: 7:41.END TIME: 8:21.Ameya Michael M.D.General SurgeryRG:[id number]: 12/19/2017 08:28:57T: 12/19/2017 20:20:06Job #: [id number] [facility] PLAN OF CAREon 12-19-2017 PLAN OF CARE HNO ID: [id number] thor: Lashae Prescott (Surgical Aides Teacher)Service: (none)Author Type: (none)Type: Plan of CareFiled: 12/19/2017 9:40 AMNote Text:SHELLS INSPECTOR BEDSIDE DELIVERY SURVEY1. Patient to use [facility] Bedside Delivery - YES2. If fax, patient would like us to fax prescriptions to Pharmacy [facility]choice a. Pharmacy: b. Location: c. Phone:3. Insurance card on file - YES4. Credit card for payment - YESPHARMACY BEDSIDE DELIVERY SERVICEPatient Name: Mai Paz AkikoMRN: [id number] marked outpatient medications were Filled at: [place] and delivered tothe patient's bedside to pharm p/uMedication ListSTART taking these medicationsoxyCODONE IR 5 mg immediate release tabletCommonly known as: ROXICODONETake 1 tablet by mouth every 4 hours as needed for up to 7 days.XCONTINUE taking these medicationsCLARITIN REDITABS 5 mg OdtGeneric drug: LoratadineEPINEPHrine 0.3 mg/0.3 mL auto-injectorCommonly known as: EPIPENInject 0.3 mL subcutaneously as needed.PREVACID 15 mg capsuleGeneric drug: lansoprazoleYou might also be taking other medications not listed above. If you havequestions about any of your other medications, talk to the person whoprescribed them or your Primary Care Provider.Lashae Prescott (Surgical Aides Teacher)PAGER: [phone] 2017 9:40 AM [facility] PT EDon 12-19-2017 PT ED HNO ID: [id number] thor: Ren (Rn) GEORGE Reeceervice: NursingAuthor Type: Registered NurseType: Patient EducationFiled: 12/19/2017 9:48 AMNote Text:POST OP LEARNING RESPONSEINSTRUCTION PROVIDED TO: Patient and family memberMETHOD OF INSTRUCTION: Teach Back ..Individual instructionWritten instruction - handoutsPATIENT / FAMILY RESPONSE: Verbalizes understanding of: POST-PROCEDUREINSTRUCTION S-Correct actions to take to reduce post procedurecomplicationsFOL LOW-UP PLAN: Complete - No need for follow-upPatient instructed to call with any further issuesSUPPLEMENTAL MATERIAL: NoneREFERRAL (RECOMMENDATION): NoneElectronically Signed By: Ren Reece RN In Department: [facility] PT ED HNO ID: [id number] thor: Renay Monique) GEORGE Cherryervice: NursingAuthor Type: Registered NurseType: Patient EducationFiled: 12/19/2017 7:15 AMNote Text:PRE OP LEARNING ASSESSMENTPROCEDURE/SURGE RY: SURGERY: Excision of soft tissue mass to backREADINESS TO LEARNCOGNITIVE ABILITY: Alert and orientedMOTIVATION TO LEARN: EagerFAMILY SUPPORT: High - Very involved in pt carePATIENT LEARNS BEST BY: Written Instruction - Hand-outsVerbal InstructionFACTORS AFFECTING LEARNING: NonePHYSICAL LIMITATIONS AFFECTING LEARNING: NoneElectronically Signed By: Renay Cherry RN In Department: [facility] SURGICAL PATHOLOGYon 018 SURGICAL PATHOLOGY [facility]: [id number] Physician: AMEYA MICHAEL MD _FINAL DIAGNOSISSoft tissue, back, superficial, excision - Lipoma.OLEG/IDALMIS/payton 12/20/2017 Danny Steinberg M.D./SEK(Electronic Signature) __SPECIMEN SUBMITTEDA: BACK MASS CLINICAL DATABACK MASS, LMP: HCG NEGATIVE GROSS DESCRIPTIONA. Received in formalin is a fragmented byrnes-yellow segment of fibroadiposetissue measuring 8.0 x 6.5 x 3.7 cm and weighing 114.0 grams. The specimenwas sectioned to reveal a byrnes lobulated homogeneous appearance.Contract Programmer sections are submitted in four cassettes. ASYA/dia 12/19/2017Gross examination performed at [facility], [address] [place] [address] of Report: 12/21/2017Date of Procedure: 12/19/2017Date of Receipt: 12/19/2017Submitted by: AMEYA MICHAEL MDLocation: MEORDiagnostic interpretation performed at [facility], [address] [place] [address]. [facility] Comment on above: Performed By: #### P ATHS ####[facility] [address] [phone] NURSING PROGon 12-16-2017 NURSING PROG HNO ID: [id number] thor: Neva (Rn) Caitlyn, RNService: (none)Author Type: Registered NurseType: Nursing Progress NoteFiled: 12/16/2017 10:50 AMNote Text:PACC Nurse Progress NoteHistory AND Physical:PACC Visit Date: N/AOriginal HANDP Date: 12-06-17- ETHEL Flannery visit Date: N/AOutside HANDP Scanned Date: N/ALabs Within Last 6 Months:N/AImaging Within Last 12 Months:12-08-17- US chest wallCardiac Testing:N/ALa Menstrual Period:LMP Date: 7-07-21Yboxropdduzytd >1yr: N/A,S/P Hysterectomy: N/ABMI Percentile (PEDS):N/ARisk Assessment:N/AAnesthesia Review:N/ANarrative:Left message for patient to call for instructions.Spoke with patient-instructions reviewed. No c/o chest pain, SOB. LMP11-25-17. College Professor is arranged for DOS.Pre-op Considerations:N/AChart Check:Donnie Mancia 2017 10:05 AMPATIENT PREOPERATIVE INSTRUCTIONSNo ref. provider found has scheduled you for your procedure at [facility]: [phone] -- [address] [facility] [id number].Please read below carefully for your personalized instructions.Blood Thinning Medications:- Stop NSAIDS (Ibuprofen, Advil, Aleve, Motrin, Celebrex, Mobic, etc.)today days before surgery, as directed by your surgeon.- Stop Aspirin today days before surgery, as directed by your surgeon.Dietary Restrictions:- No solid food after midnight.- You may have 12 ounces of clear liquids (water, clear juices such asapple juice or gatorade, carbonated beverages, clear tea, black coffee,jello) until 2 hours before scheduled arrival at facility.Pain Medications:Medications:A pproved medications to take the morning of surgery with a sip of water:No meds AM of surgeryIf you start any new medications after today's visit, [facility].Important Reminders:- Candy, mints, gum and tobacco products are NOT permitted the morning ofsurgery.- Hearing aids, dentures and glasses may be worn the morning of surgery.- NO jewelry, body piercings, makeup, nail [place], hairpins or contactsare to be worn the day of surgery.If you develop symptoms such as a fever, cold, or flu, or have otherchanges to your health within TWO DAYS of scheduled surgery or the morningof surgery, please contact the surgery center above.Personal Belongings:- Leave ALL valuables and money at home or with family members.For Outpatient Procedures: - YOU MUST HAVE A RESPONSIBLE BOAT DOCK OPERATOR TAKE YOU HOME. A COMPANY TRUCK DRIVER OR CABDRIVER CANNOT BE MADE A RESPONSIBLE BOAT DOCK OPERATOR.- We recommend that a responsible person stays with you overnight to takecare of you.- You cannot stay in a hotel alone after outpatient surgery. You will notbe permitted to have your surgery, if you do not have someone to take careof you. Arrival Time for Surgery:- The Surgery Center or hospital where you are having surgery will callthe afternoon before surgery (or Tuesday for Tuesday surgery) with ascheduled arrival time.- If you have not heard by 4 pm, please contact the surgery center above.Please be aware that emergency situations arise, which may delay or changeyour surgical time. If this happens, we will notify you as soon aspossible and regret any inconvenience.Neva Brady RN [facility] HOSPon 12-13-2017 HOSP Patient:Mai Wharton LMRN: Height:5' 3(1.6 m)Weight:189 lb (85.73 kg)Outpatient Medications as of 12/19/17:Loratadine (CLARITIN REDITABS) 5 mg ODTlansoprazole (PREVACID) 15 mg capsuleEPINEPHrine 0.3 mg/0.3 mL INTRAMUSC. PnIjAdmission/Clinic Administered Medications as of 12/19/17:lactated ringers infusionceFAZolin iv piggyback 2 g in D5W (iso-osmotic) 100 mL (ANCEF)midazolam 2 mg injection (VERSED)Problem List:Routine gynecological examination [Z01.419]GERD (gastroesophageal reflux disease) [K21.9]Mass on back [R22.2]Allergies:BeesHayf ever [Homeopathic Products]Date Verified: 12/19/17Lab ValuesNo results within the last 30 days for the following basenames: K,HCTProgress Notes ([facility]):Robert Castaneda 12/13/2017 10:24 AM [id number] Excision mass dexter Jones LeonelProgress Notes (RADIO ULTRA [facility] MOB):RENAY MCCARTHY RDMS 12/08/2017 9:58 AM Signed Radiology Service Progress NotePATIENT NAME: Mai Paz AkikoMRN: [id number] OF SERVICE: December 08, 2017TIME: 9:58 AMPATIENT IDENTITY VERIFICATION COMPLETED USING TWO (2) METHODS: Patientconfirmed name verbally and Date of .PATIENT GENDER DATA: Female. status: : No Breastfeedingstatus: N/APATIENT RELEVANT IMPLANT DATA REVIEWED: Not ApplicableRADIOLOGY DEPARTMENT: UltrasoundPERIPHERAL IV DATA: Not applicableSIGNED BY: RENAY MCCARTHY RDMS RVTJuly 2017 9:58 AM [facility] Vital Signs Date Time Vital Sign Value Performing Clinician Facility 09-22-2024 12:47-0400 Diastolic blood pressure 79 mm[Hg] Juan Meza MD Work Phone: [facility] 09-22-2024 12:47-0400 Systolic blood pressure 118 mm[Hg] Juan Meza MD Work Phone: [facility] 09-22-2024 12:09-0400 Body height 160 cm Juan Meza MD Work Phone: [facility] 09-22-2024 12:09-0400 Body mass index (BMI) [Ratio] 34.01 kg/m2 Juan Meza MD Work Phone: [facility] 09-22-2024 12:09-0400 Body weight 87.09 kg Juan Meza MD Work Phone: [facility] 09-22-2024 12:09-0400 Heart rate 128 /min Juan Meza MD Work Phone: [facility] 08-29-2024 18:47-0400 Diastolic blood pressure 96 mm[Hg] Juan Meza MD Work Phone: [facility] 08-29-2024 18:47-0400 Systolic blood pressure 146 mm[Hg] Juna Meza MD Work Phone: [facility] 08-29-2024 18:18-0400 Body height 158.8 cm Juan Meza MD Work Phone: [facility] 08-29-2024 18:18-0400 Body mass index (BMI) [Ratio] 34.02 kg/m2 Juan Meza MD Work Phone: [facility] 08-29-2024 18:18-0400 Body weight 85.73 kg Juan Meza MD Work Phone: [facility] 08-29-2024 18:18-0400 Heart rate 125 /min Juan Meza MD Work Phone: [facility] 12-26-2023 08:40-0400 Body mass index (BMI) [Ratio] 33.27 kg/m2 Van Carvajal MD Work Phone: [facility] 12-26-2023 08:40-0400 Body temperature 98.1 [degF] Van Carvajal MD Work Phone: [facility] 12-26-2023 08:40-0400 Body weight 85.2 kg Van Carvajal MD Work Phone: [facility] 12-26-2023 08:40-0400 Diastolic blood pressure 104 mm[Hg] Van Carvajal MD Work Phone: [facility] 12-26-2023 08:40-0400 Heart rate 136 /min Van Carvajal MD Work Phone: [facility] 12-26-2023 08:40-0400 Respiratory rate 20 /min Van Carvajal MD Work Phone: [facility] 12-26-2023 08:40-0400 SaO2% (BldA) [Mass fraction] 99 % Van Carvajal MD Work Phone: [facility] 12-26-2023 08:40-0400 Systolic blood pressure 154 mm[Hg] Van Carvajal MD Work Phone: [facility] 08-08-2023 13:04-0500 Body temperature 96.91 [degF] Shakira Plummer APRN.DENTAL CERAMIST ASSISTANT Work Phone: [facility] 08-08-2023 13:04-0500 Body weight 85.28 kg Shakira Plummer APRN.DENTAL CERAMIST ASSISTANT Work Phone: [facility] 08-08-2023 13:04-0500 Heart rate 122 /min Shakira Praisler-Wood NEWS CONTENT SPECIALIST.DENTAL CERAMIST ASSISTANT Work Phone: [facility] 08-08-2023 13:04-0500 Respiratory rate 20 /min Shakira Praisler-Wood NEWS CONTENT SPECIALIST.DENTAL CERAMIST ASSISTANT Work Phone: [facility] 08-08-2023 13:04-0500 SaO2% (BldA) [Mass fraction] 97 % Shakira Praisler-Wood NEWS CONTENT SPECIALIST.DENTAL CERAMIST ASSISTANT Work Phone: [facility] 02-10-2023 14:09-0400 Diastolic blood pressure 78 mm[Hg] Juan Meza MD Work Phone: [facility] 02-10-2023 14:09-0400 Systolic blood pressure 118 mm[Hg] Juan Meza MD Work Phone: [facility] 02-10-2023 13:41-0400 Body height 160 cm Juan Meza MD Work Phone: [facility] 02-10-2023 13:41-0400 Body weight 87.09 kg Juan Meza MD Work Phone: [facility] 02-10-2023 13:41-0400 Heart rate 128 /min Juan Meza MD Work Phone: [facility] 04-20-2022 09:38-0500 Body temperature 97.81 [degF] Mirela Coronel PA-C Work Phone: [facility] 04-20-2022 09:38-0500 Body weight 88.91 kg Mirela Coronel PA-C Work Phone: [facility] 03-19-2022 09:39-0400 Body weight 88.91 kg Christine Lovell PA-C Work Phone: [facility] 03-19-2022 09:39-0400 Diastolic blood pressure 82 mm[Hg] Christine Lovell PA-C Work Phone: [facility] 03-19-2022 09:39-0400 Heart rate 104 /min Christine Lovell PA-C Work Phone: [facility] 03-19-2022 09:39-0400 Respiratory rate 18 /min Christine Lovell PA-C Work Phone: [facility] 03-19-2022 09:39-0400 SaO2% (BldA) [Mass fraction] 96 % Christine Lovell PA-C Work Phone: [facility] 03-19-2022 09:39-0400 Systolic blood pressure 136 mm[Hg] Christine Lovell PA-C Work Phone: [facility] 02-25-2022 14:17-0400 Heart rate 72 /min [facility] Work Phone: 02-25-2022 14:17-0400 Respiratory rate 18 /min [facility] Work Phone: 02-25-2022 14:17-0400 SaO2% (BldA) [Mass fraction] 97 % [facility] Work Phone: 02-25-2022 13:16-0400 Diastolic blood pressure 91 mm[Hg] [facility] Work Phone: 02-25-2022 13:16-0400 Systolic blood pressure 135 mm[Hg] [facility] Work Phone: 02-25-2022 10:52-0400 Body height 160.02 cm [facility] Work Phone: 02-25-2022 10:52-0400 Body mass index (BMI) [Ratio] 33.5 kg/m2 [facility] Work Phone: 02-25-2022 10:52-0400 Body temperature 97.4 [degF] [facility] Work Phone: 02-25-2022 10:52-0400 Body weight 85.72 kg [facility] Work Phone: 09-30-2021 14:55-0400 Body weight 84.82 kg Juan Meza MD Work Phone: [facility] 09-30-2021 14:55-0400 Diastolic blood pressure 86 mm[Hg] Juan Meza MD Work Phone: [facility] 09-30-2021 14:55-0400 Heart rate 80 /min Juan Meza MD Work Phone: [facility] 09-30-2021 14:55-0400 Respiratory rate 12 /min Juan Meza MD Work Phone: [facility] 09-30-2021 14:55-0400 Systolic blood pressure 130 mm[Hg] Juan Meza MD Work Phone: [facility] 09-28-2021 07:20-0400 Body temperature 98.8 [degF] [facility] Work Phone: 09-28-2021 07:20-0400 Diastolic blood pressure 96 mm[Hg] [facility] Work Phone: 09-28-2021 07:20-0400 Heart rate 109 /min [facility] Work Phone: 09-28-2021 07:20-0400 Respiratory rate 18 /min [facility] Work Phone: 09-28-2021 07:20-0400 SaO2% (BldA) [Mass fraction] 95 % [facility] Work Phone: 09-28-2021 07:20-0400 Systolic blood pressure 155 mm[Hg] [facility] Work Phone: 09-27-2021 22:03-0400 Body height 160.02 cm [facility] Work Phone: 09-27-2021 22:03-0400 Body mass index (BMI) [Ratio] 26.5 kg/m2 [facility] Work Phone: 09-27-2021 22:03-0400 Body weight 68.03 kg [facility] Work Phone: 12-27-2021 17:37-0500 Diastolic blood pressure 81 mm[Hg] [facility] Work Phone: 06-01-2021 17:37-0500 Heart rate 112 /min [facility] Work Phone: 06-01-2021 17:37-0500 Respiratory rate 17 /min [facility] Work Phone: 06-01-2021 17:37-0500 SaO2% (BldA) [Mass fraction] 98 % [facility] Work Phone: 06-01-2021 17:37-0500 Systolic blood pressure 145 mm[Hg] [facility] Work Phone: 06-01-2021 16:03-0500 Body mass index (BMI) [Ratio] 29.5 kg/m2 [facility] Work Phone: 06-01-2021 16:03-0500 Body temperature 97.6 [degF] [facility] Work Phone: 06-01-2021 16:03-0500 Body weight 78.01 kg [facility] Work Phone: Encounters Encounter Date Encounter Type Care Provider Facility Start: 02-01-2025 ambulatory Juan [facility] Facility :[facility] Start: 01-28-2025 ambulatory Juan Susana Facility :[facility] Start: 01-17-2025 End: 01-17-2025 Refill Christine Lovell PA-C Work Phone: [facility] [place] Comment on above: Refill Request Baclofen Start: 10-17-2024 End: 10-17-2024 ambulatory Juan Meza MD Work Phone: [facility] [place] Comment on above: Coldsores Start: 09-25-2024 End: 09-26-2024 Follow-up encounter Juan Meza MD Work Phone: [facility] [place] Start: 09-24-2024 End: 09-24-2024 ambulatory Juan Meza MD Work Phone: [facility] [place] Comment on above: Medication Start: 09-22-2024 Encounter for genera l adult medical examination without abnormal findings JUAN MEZA [facility] Start: 09-22-2024 End: 09-22-2024 Patient encounter procedure Juan Meza MD Work Phone: [facility] [place] Comment on above: Well adult exam ([facility] Dx); Migraine without status migrainosus, not intractable, unspecified migraine type; Anxiety and depression; Need for vaccination; Encounter for screening mammogram for breast cancer; Wheezing; H/O bee sting allergy; Screening for colon cancer; Elevated hemoglobin A1c; Neck pain Start: 09-22-2024 End: 09-22-2024 Patient encounter status Juan Meza MD Work Phone: [facility] Start: 09-22-2024 End: 09-22-2024 ambulatory JUAN MEZA Facility:[facility] Start: 09-20-2024 End: 09-20-2024 ambulatory JUAN MEZA Facility:[facility] Start: 09-16-2024 End: 09-17-2024 Follow-up encounter Juan Meza MD Work Phone: [facility] [place] Comment on above: Results Start: 09-14-2024 End: 09-14-2024 ambulatory JUAN MEZA Facility:[facility] Start: 09-13-2024 End: 09-14-2024 ambulatory Juan Meza MD Work Phone: [facility] [place] Comment on above: UTI Start: 09-12-2024 End: 09-12-2024 ambulatory Juan Meza MD Work Phone: [facility] [place] Comment on above: Blood work Start: 08-30-2024 End: 08-30-2024 ambulatory Juan Meza MD Work Phone: [facility] [place] Comment on above: Yesterday s visit Start: 08-29-2024 End: 08-29-2024 Patient encounter procedure Juan Meza MD Work Phone: [facility] [place] Comment on above: Acute cystitis with hematuria (Primary Dx); Dysuria; Encounter for screening for diabetes mellitus; Encounter for lipid screening for cardiovascular disease; Screening for colon cancer Start: 08-29-2024 End: 08-29-2024 ambulatory JUAN MEZA Facility:[facility] Start: 08-07-2024 End: 08-07-2024 ambulatory Juan Meza MD Work Phone: [facility] Comment on above: UTI Start: 07-13-2024 End: 07-13-2024 Chart abstracting Juan Meza MD Work Phone: [facility] Comment on above: Outside PT Discharge Summary Start: 06-19-2024 End: 07-20-2024 ambulatory Juan Meza MD Work Phone: [facility] Start: 06-04-2024 End: 06-05-2024 Refill Christine Lovell PA-C Work Phone: [facility] Comment on above: Refill Request Start: 05-21-2024 End: 05-21-2024 Chart abstracting Jaun Meza MD Work Phone: [facility] Comment on above: ER Discharge Summary Start: 05-21-2024 End: 05-21-2024 [facility] Start: 05-07-2024 End: 05-07-2024 ambulatory [facility] Facility:[facility] Start: 04-23-2024 End: 04-23-2024 ambulatory Juan Meza MD Work Phone: [facility] Comment on above: Baclofen Start: 04-04-2024 End: 04-04-2024 ambulatory Juan Meza MD Work Phone: [facility] Comment on above: Trazadone renewal re quest Start: 12-27-2023 Telephone encounter Dawit teran APRN.CNP Work Phone: [facility] Comment on above: Results Start: 12-26-2023 End: 12-26-2023 Patient encounter procedure Van Carvajal MD Work Phone: [facility] Comment on above: Acute cough (Primary Dx); Wheezing Refill Request ([facility]) Start: 12-26-2023 End: 12-26-2023 Subsequent hospital visit by physician [facility] [place] Work Phone: Radiology Comment on above: Acute cough [R05.1] Start: 12-26-2023 End: 12-26-2023 ambulatory JUAN MEZA Facility:[facility] Start: 10-12-2023 ambulatory Juan sprague MD Work Phone: [facility] [place] Comment on above: Shingles Start: 10-06-2023 Refill Juan sprague MD Work Phone: [facility] [place] Comment on above: Refill Request Start: 10-03-2023 Refill Juan sprague MD Work Phone: [facility] [place] Comment on above: Refill Request Start: 08-08-2023 End: 08-08-2023 Subsequent hospital visit by physician [facility] [place] Work Phone: Radiology Comment on above: Toe injury, right, i nitial encounter [S99.921A] Start: 08-08-2023 End: 08-08-2023 Patient encounter procedure Shakira Plummer APRN.CNP Work Phone: [facility] Comment on above: Toe injury, right, i nitial encounter (Primary Dx) Start: 06-08-2023 ambulatory Juan sprague MD Work Phone: [facility] [place] Start: 04-13-2023 ambulatory Juan sprague MD Work Phone: [facility] [place] Comment on above: Physiotherapy Start: 02-18-2023 ambulatory Juan sprague MD Work Phone: [facility] [place] Comment on above: Left my sunglasses i n the exam room Start: 02-10-2023 End: 02-10-2023 Patient encounter procedure Juan Meza MD Work Phone: [facility] [place] Comment on above: Well adult exam ([facility] Dx); Gastroesophageal reflux disease without esophagitis; Migraine without status migrainosus, not intractable, unspecified migraine type; Anxiety and depression; Screening for diabetes mellitus (DM); Need for vaccination; Screening for colon cancer; Generalized anxiety disorder; Encounter for lipid screening for cardiovascular disease; Muscle tension headache Start: 02-10-2023 End: 02-10-2023 Patient encounter status Juan Meza MD Work Phone: [facility] Work Phone: Start: 10-08-2022 ambulatory Juan sprague MD Work Phone: [facility] [place] Comment on above: Shingles vaccine Start: 09-29-2022 ambulatory Juan sprague MD Work Phone: [facility] [place] Comment on above: Physiotherapists req uisition Start: 07-27-2022 Refill Juan sprague MD Work Phone: [facility] Comment on above: Refill Request; Refi ll Request Refill Request Start: 06-04-2022 Telephone encounter Juan Meza MD Work Phone: [facility] Comment on above: UTI Start: 05-17-2022 End: 05-17-2022 Nursing evaluation of patient and report Nurse [facility] Work Phone: General Surgery Comment on above: Lipoma of torso (Natasha gina Dx) Start: 05-07-2022 End: 05-07-2022 Patient encounter procedure Mirela Coronel PA-C Work Phone: General Surgery Comment on above: Lipoma of torso (Natasha gina Dx) Start: 04-20-2022 End: 04-20-2022 Patient encounter procedure Mirela Coronel PA-C Work Phone: General Surgery Comment on above: Lipoma of torso (Natasha gina Dx) Start: 03-19-2022 End: 03-19-2022 Patient encounter procedure Christine Lovell PA-C Work Phone: [facility] Comment on above: Migraine without sta tus migrainosus, not intractable, unspecified migraine type (Primary Dx); Need for influenza vaccination Start: 03-17-2022 ambulatory Juan sprague MD Work Phone: Internal Medicine [employer] Start: 03-16-2022 Telephone encounter Juan Meza MD Work Phone: [facility] [place] Comment on above: Referral Request Start: 03-15-2022 Telephone encounter Christine cain PA-C Work Phone: [facility] [place] Comment on above: Medication Problem; Headache Start: 02-25-2022 End: 02-25-2022 [facility] Start: 02-18-2022 End: 02-18-2022 Office outpatient visit 25 minutes Christine Lovell PA-C Work Phone: [facility] [place] Comment on above: 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); Migraine without status migrainosus, not intractable, unspecified migraine type Start: 02-17-2022 Telephone encounter Christine cain PA-C Work Phone: [facility] [place] Comment on above: Appointment Start: 02-03-2022 Refill Juan sprague MD Work Phone: [facility] [place] Comment on above: Refill Request Start: 01-26-2022 Refill Juan sprague MD [facility] Phone[facility] Comment on above: Refill Request Start: 12-16-2021 Refill Juan sprague MD Work Phone: [facility] [place] Comment on above: Refill Request Start: 10-09-2021 Telephone encounter Juan Mzea MD Work Phone: [facility] [place] Comment on above: Medication Question Start: 10-07-2021 Chart abstracting Juan shelton MD Work Phone: [facility] Comment on above: External PT Evaluati on Start: 09-30-2021 End: 09-30-2021 Patient encounter procedure Juan Meza MD Work Phone: [facility] [place] Comment on above: Anxiety and depressi on (Primary Dx); Acute ethmoidal sinusitis, recurrence not specified Start: 09-27-2021 End: 09-28-2021 Emergency department patient visit [facility] Start: 09-10-2021 Telephone encounter Juan Meza MD Work Phone: [facility] [place] Comment on above: Physio therapy Start: 09-07-2021 Refill Juan sprague MD Work Phone: [facility] [place] Comment on above: Refill Request Start: 09-04-2021 Refill Juan sprague MD Work Phone: [facility] [place] Start: 06-18-2021 Refill Juan sprague MD Work Phone: [facility] Comment on above: Refill Request Start: 06-01-2021 End: 06-01-2021 Emergency department patient visit [facility] Start: 12-19-2017 End: 12-19-2017 Patient encounter [facility] Start: 06-03-2009 Patient encounter status Gael Meza MD Work Phone: [facility] Work Phone: Procedures Date Procedure Procedure Detail Performing Clinician Start: 09-20-2024 Lipid 1996 panel - S [place] or Plasma Juan Meza MD Work Phone: Start: 08-29-2024 Urnls dip stick/tabl et rgnt auto w/o microscopy Juan Meza MD Work Phone: Start: 12-26-2023 Radiologic exam ches t 2 views Van Carvajal MD Work Phone: Start: 08-08-2023 Radex toe minimum 2 views Shakira Plummer APRN.CNP Work Phone: Start: 05-03-2022 Mammography Mirela lawler PA-C Work Phone: Start: 03-19-2022 INFLUENZA VACCINE QUADRIVALENT 6 MO - 64 YRS IM Christine Lovell PA-C Work Phone: Start: 06-01-2021 CT of head without contrast Plan of Treatment Date Care Activity Detail Author Start: 11-21-2029 Urine microalbumin profile [facility] Start: 09-20-2029 Lipid panel Lipid Screening [facility] Start: 09-21-2027 Diabetes Screening Diabetes Screenin g [facility] Start: 04-13-2026 HPV TESTING HPV TESTING [facility] Start: 04-13-2026 PAP TESTING PAP TESTING [facility] Start: 04-13-2026 Screening for malign ant neoplasm of cervix [facility] Start: 03-25-2025 End: 03-25-2025 Patient encounter procedure [facility] [place] Comment on above: 6 month follow up. L abs prior Start: 03-15-2025 End: 06-14-2025 Hemoglobin A1c in Blood HEMOGLOBIN A1C Lab Routine Elevated hemoglobin A1c Expected: 03/15/2025, Expires: 06/14/2025 [facility] Work Phone: Comment on above: Expected: 03/15/2025 , Expires: 06/14/2025 Start: 02-27-2025 End: 02-27-2025 Patient encounter procedure 02/27/2025 1:40 PM EDT Office Visit OB/Gynecology [address] [place] [address] Samira Harris MD [address] [place] [address] annual OB/Gynecology Comment on above: annual Start: 02-15-2025 End: 02-15-2025 Patient encounter procedure 02/15/2025 10:50 AM EDT Appointment Mammogram [address] [place] [address] Mammogram Start: 02-04-2025 Influenza vaccination Influenza Vacc ine (#1) [facility] Start: 10-26-2024 End: 10-26-2024 Patient encounter procedure 10/26/2024 12:40 PM EDT Office Visit Family [facility] [place] [address] [place] [address] Juan Meza MD [address] [facility] [place] [address] Anxiety/Sleep issues [facility] [place] Comment on above: Anxiety/Sleep issues Start: 10-12-2024 End: 10-12-2024 Patient encounter procedure 10/12/2024 3:00 PM EDT Office Visit General Surgery [address] [place] [address] Amy Ingram APRN.DENTAL CERAMIST ASSISTANT [address] [place] [address] consult colonoscopy / DO NOT MOVE UP / Patient wants Dr. Michael for procedure in the fall General Surgery Comment on above: consult colonoscopy / DO NOT MOVE UP / Patient wants Dr. Michael for procedure in the fall Start: 09-22-2024 End: 09-22-2024 Patient encounter procedure 09/22/2024 12:00 PM EDT Office Visit [facility] [place] [address] [place] [address] Juan Meza MD [address] [facility] [place] [address] Physical [facility] [place] Comment on above: Physical Start: 09-21-2024 End: 09-21-2024 ambulatory [facility] Start: 09-20-2024 End: 09-20-2024 ambulatory 09/20/2024 9:00 AM EDT [facility] [address] [place] [address] [facility] Start: 09-13-2024 End: 12-13-2024 Bacteria identified in Urine by Culture BACTERIAL CULTURE, URINE Microbiology Routine Dysuria Expected: 09/13/2024, Expires: 12/13/2024 [facility] Comment on above: Expected: 09/13/2024 , Expires: 12/13/2024 Start: 09-13-2024 End: 12-13-2024 Urinalysis complete panel - Urine URINALYSIS, WITH MICROSCOPIC Lab Routine Dysuria Expected: 09/13/2024, Expires: 12/13/2024 [facility] Work Phone: Comment on above: Expected: 09/13/2024 , Expires: 12/13/2024 Start: 09-12-2024 End: 12-12-2024 Ferritin [Mass/volume] in Serum or Plasma FERRITIN Lab Routine Family history of hemochromatosis Expected: 09/12/2024, Expires: 12/12/2024 [facility] Comment on above: Expected: 09/12/2024 , Expires: 12/12/2024 Start: 09-12-2024 End: 12-12-2024 HFE gene targeted mutation analysis in Blood or Tissue by Molecular genetics method HFE (HEMOCHROMATOSIS) Lab Routine Family history of hemochromatosis Expected: 09/12/2024, Expires: 12/12/2024 [facility] Work Phone: Comment on above: Expected: 09/12/2024 , Expires: 12/12/2024 Start: 09-12-2024 End: 12-12-2024 Iron and Iron binding capacity panel - Serum or Plasma IRON AND TIBC Lab Routine Family history of hemochromatosis Expected: 09/12/2024, Expires: 12/12/2024 [facility] Comment on above: Expected: 09/12/2024 , Expires: 12/12/2024 Start: 08-29-2024 End: 08-29-2024 Patient encounter procedure [facility] [place] Comment on above: physical Start: 08-29-2024 End: 11-28-2024 Hemoglobin A1c in Blood HEMOGLOBIN A1C Lab Routine Encounter for screening for diabetes mellitus Expected: 08/29/2024, Expires: 11/28/2024 [facility] Comment on above: Expected: 08/29/2024 , Expires: 11/28/2024 Start: 08-29-2024 End: 11-28-2024 LIPID PANEL, NONFASTING LIPID PANEL, NONFASTING Lab Routine Encounter for lipid screening for cardiovascular disease Expected: 08/29/2024, Expires: 11/28/2024 [facility] Comment on above: Expected: 08/29/2024 , Expires: 11/28/2024 Start: 08-21-2024 End: 08-21-2024 Patient encounter procedure 08/21/2024 4:00 PM EDT Appointment Mammogram [address] [place] [address] Mammogram Start: 07-02-2024 End: 07-02-2024 Patient encounter procedure 07/02/2024 9:40 AM EST Office Visit OB/Gynecology [address] [place] [address] Samira Harris MD [address] [place] [address] Check up OB/Gynecology Comment on above: Check up Start: 06-19-2024 End: 06-19-2024 Patient encounter procedure 06/19/2024 3:40 PM EST Appointment Mammogram [address] [place] [id number] Mammogram Start: 05-25-2024 End: 05-25-2024 Patient encounter procedure 05/25/2024 11:10 AM EST Appointment Mammogram [address] [id number] Mammogram Start: 02-05-2024 Covid-19 Vaccine ( season) Covid-19 Vaccine ( season) [facility] Start: 02-05-2024 Influenza vaccination Influenza Vacc ine (#1) [facility] Start: 12-04-2023 Influenza vaccination [facility] Comment on above: Postponed from 02/04 (Declined at this time) Start: 05-03-2023 Mammography [facility] Start: 05-03-2023 Screening for malign ant neoplasm of breast Mammogram Screening [facility] Start: 04-07-2023 SHINGRIX VACCINE (2 of 2) SHINGRIX VACCINE (2 of 2) [facility] Start: 02-10-2023 End: 04-12-2023 Fasting glucose [Mass/volume] in Serum or Plasma GLUCOSE FASTING BLD Lab Routine Screening for diabetes mellitus (DM) Well adult exam Expected: 02/10/2023, Expires: 04/12/2023 [facility] Work Phone: Comment on above: Expected: 02/10/2023 , Expires: 04/12/2023 Start: 02-10-2023 End: 04-12-2023 Hemoglobin A1c in Blood HGB A1C Lab Routine Screening for diabetes mellitus (DM) Well adult exam Expected: 02/10/2023, Expires: 04/12/2023 [facility] Work Phone: Comment on above: Expected: 02/10/2023 , Expires: 04/12/2023 Start: 02-10-2023 End: 04-12-2023 Lipid 1996 panel - Serum or Plasma LIPID PANEL BASIC Lab Routine Well adult exam Encounter for lipid screening for cardiovascular disease Expected: 02/10/2023, Expires: 04/12/2023 [facility] Work Phone: Comment on above: Expected: 02/10/2023 , Expires: 04/12/2023 Start: 04-13-2022 COLORECTAL CANCER SCREENING COLORECTAL CANCER SCREENING [facility] Comment on above: Postponed from 05/13 (Declined at this time) Start: 02-25-2022 COVID-19 VACCINE (5 - Booster for Pfizer series) COVID-19 VACCINE (5 - Booster for Pfizer series) [facility] Start: 02-04-2022 Influenza vaccination INFLUENZA (#1) [facility] Start: 08-04-2021 COVID-19 VACCINE (4 - Booster for Pfizer series) COVID-19 VACCINE (4 - Booster for Pfizer series) [facility] Start: 2021 Pneumococcal Vaccine : 50+ (1 of 1 - PCV) Pneumococcal Vaccine: 50+ (1 of 1 - PCV) [facility] Start: 2021 SHINGRIX VACCINE (1 of 2) SHINGRIX VACCINE (1 of 2) [facility] Start: 2016 COLOGUARD (FIT-DNA) COLOGUARD (FIT-D NA) [facility] Start: 2016 Colonoscopy COLONOSCOPY [facility] Start: 2016 COLORECTAL CANCER SCREENING COLORECTAL CANCER SCREENING [facility] Start: [address] COLONOGRAPHY [facility] Start: 2016 DIABETES SCREEN DIABETES SCREEN [facility] Start: 2016 Diabetes Screening Diabetes Screenin g [facility] Start: 2016 FECAL OCCULT BLOOD FECAL OCCULT BLOO D [facility] Start: 2016 Lipid 1996 panel - Serum or Plasma Lipid Screening [facility] Start: 2016 Lipid panel [facility] Start: 2016 LIPID SCREEN LIPID SCREEN [facility] Start: 2016 Screening for malign ant neoplasm of colon [facility] Start: 2016 [facility] Start: 2011 Mammography MAMMOGRAM [facility] Start: 04-27-2011 HEPATITIS B (3 of 3 - Hep B Twinrix 3-dose series) HEPATITIS B (3 of 3 - Hep B Twinrix 3-dose series) [facility] Bacteria identified in Urine by Culture BACTERIAL CULTURE, URINE Microbiology Routine Dysuria 09/14/2024 1:35 PM EDT [facility] End: 07-19-2025 DBT Breast - bilateral screening STEPH SCREENING W KEL Radiology Routine Encounter for screening mammogram for breast cancer 1 Occurrences starting 06/19/2024 until 07/19/2025 [facility] Work Phone: Comment on above: 1 Occurrences starti ng 06/19/2024 until 07/19/2025 End: 07-07-2024 STEPH SCREENING W KEL STEPH SCREENING W KEL Radiology Routine Encounter for screening mammogram for breast cancer 1 Occurrences starting 06/08/2023 until 07/07/2024 [facility] Work Phone: Comment on above: 1 Occurrences starti ng 06/08/2023 until 07/07/2024 Patient Education [facility] Work Phone: Patient referral [facility] Work Phone: SARS-CoV-2 (COVID-19 ) RNA [Presence] in Respiratory specimen by REBA with probe detection COVID NAAT, UPPER RESPIRATORY, ROUTINE Microbiology Routine Acute cough 12/26/2023 9:40 AM EDT [facility] Work Phone: End: 04-16-2023 Screening mammography bi 2-view breast inc cad STEPH SCREENING Radiology Routine Encounter for screening mammogram for breast cancer 1 Occurrences starting 03/17/2022 until 04/16/2023 [facility] Work Phone: Comment on above: 1 Occurrences starti ng 03/17/2022 until 04/16/2023 UA DIP, URINE (POC) UA DIP, URIN E (POC) Lab Routine Dysuria Ordered: 08/29/2024 [facility] Work Phone: Comment on above: Ordered: 08/29/2024 Urinalysis complete panel - Urine URINALYSIS, WITH MICROSCOPIC Lab Routine Dysuria 09/14/2024 1:35 PM EDT [facility] Immunizations Immunization Date Immunization Notes Care Provider Fa cili 09-22-2024 pneumococcal conjuga te (PCV20) vaccine, 20 valent (PREVNAR 20) Juan Meza MD Work Phone: [facility] 09-22-2024 zoster vaccine recombinant Juan Meza MD Work Phone: [facility] 09-22-2024 pneumococcal Conjuga te, unspecified formulation Juan Meza MD Work Phone: [facility] 07-24-2024 COVID-19 vaccine, ag e 12+ yr ([email or web address] COMIRNATY) Juan Meza MD Work Phone: [facility] 07-24-2024 influenza, seasonal, injectable Juan Meza MD Work Phone: [facility] 07-24-2024 influenza, seasonal, injectable, preservative free Juan Meza MD Work Phone: [facility] 07-24-2024 influenza virus vaccine, unspecified formulation Christine Lovell PA-C Work Phone: [facility] 03-25-2023 COVID-19 vaccine, ag e 12+ yr, 2022- season (MODERNA) Juan Meza MD Work Phone: [facility] 03-25-2023 Seasonal, quadrivale nt, recombinant, injectable influenza vaccine, preservative free Juan Meza MD Work Phone: [facility] 03-25-2023 influenza virus vaccine, unspecified formulation Van Carvajal MD Work Phone: [facility] 02-10-2023 zoster vaccine recombinant Juan Meza MD Work Phone: [facility] 05-04-2022 COVID-19 booster vaccine, age 12+ yr, bivalent (PFIZER-BIONTECH) Mirela Coronel PA-C Work Phone: [facility] 03-19-2022 hepatitis A and hepatitis B vaccine Christine Lovell PA-C Work Phone: [facility] 03-19-2022 influenza, injectabl e, quadrivalent, contains preservative Christine Lovell PA-C Work Phone: [facility] 03-19-2022 influenza virus vaccine, unspecified formulation Juan Meza MD Work Phone: [facility] 04-13-2021 influenza, injectabl e, quadrivalent, contains preservative Juan Meza MD Work Phone: [facility] 04-06-2021 COVID-19 vaccine, ag e 12+ yr (PFIZER-BIONTECH - PURPLE TOP) Juan Meza MD Work Phone: [facility] 09-24-2020 COVID-19 vaccine, ag e 12+ yr (PFIZER-BIONTECH - PURPLE TOP) Juan Meza MD Work Phone: [facility] 08-28-2020 COVID-19 vaccine, ag e 12+ yr (PFIZER-BIONTECH - PURPLE TOP) Juan Meza MD Work Phone: [facility] 11-22-2019 tetanus toxoid, redu dante diphtheria toxoid, and acellular pertussis vaccine, adsorbed Juan Meza MD Work Phone: [facility] 03-16-2013 influenza virus vaccine, unspecified formulation Juan Meza MD Work Phone: [facility] 05-24-2012 influenza virus vaccine, unspecified formulation Juan Meza MD Work Phone: [facility] Work Phone: 04-09-2011 influenza virus vaccine, unspecified formulation Juan Meza MD Work Phone: [facility] 11-25-2010 hepatitis A and hepatitis B vaccine Juan Meza MD Work Phone: [facility] Work Phone: 11-25-2010 hepatitis B vaccine, unspecified formulation Juan Meza MD Work Phone: [facility] 09-18-2010 hepatitis A and hepatitis B vaccine Juan Meza MD Work Phone: [facility] Work Phone: 06-30-2007 influenza virus vaccine, live, attenuated, for intranasal use Juan Meza MD Work Phone: [facility] Work Phone: Payers Date Payer Category Payer [employer] Blue Shield [id number] 2024 Unknown [employer]M BLUE CARD PPO OOS [id number] 2024-Present [phone] [address] [place] [address] PPO [id number] 2024 Unknown [id number] 2024 Self-pay [id number] 2021 [facility] Health [facility] [id number] 2021-Present [phone] [address] [address] [place] [address] HMO [id number] 2021 Private Health Insurance [id number] 2021 Unknown [id number] Unknown [id number] Unknown [id number] Unknown [id number] Social History Date Type Detail Facility Start: 06-26-2018 End: 02-05-2022 Tobacco smoking status NHIS Never smoked tobacco [facility] Start: 06-08-2021 End: 10-17-2024 Alcohol intake Current drinker of alcohol (finding) [facility] Start: 04-06-2021 History SDOH Alcohol Frequency 4 [facility] Start: 04-06-2021 History SDOH Alcohol Std Drinks 98 [facility] Start: 04-06-2021 End: 03-18-2022 History SDOH Alcohol Binge 2 [facility] Start: 04-13-2021 History SDOH Alcohol Comment seldom [facility] Start: 04-06-2021 History SDOH Social Connections Phone 5 [facility] Start: 04-06-2021 End: 03-18-2022 History SDOH Social Connections Meetings 1 [facility] Start: 04-06-2021 History SDOH Social Connections Living 3 [facility] Start: 1970 Sex Assigned At Female [facility] Start: 09-27-2021 End: 02-25-2022 Tobacco smoking status NHIS Unknown if ever smoked [facility] Work Phone: Start: 09-20-2021 End: 05-07-2022 Exposure to SARS-CoV-2 (event) Not sure [facility] Start: 06-26-2018 End: 02-05-2022 Tobacco use and exposure Smokeless tobacco non-user [facility] Work Phone: Start: 02-09-2023 End: 08-28-2024 History of Social function [facility] Start: 02-09-2023 End: 08-28-2024 Social connection and isolation panel [facility] Start: 05-07-2012 Attends [employer] Not on file [facility] Do you belong to any clubs or organizations such as [employer] groups, [employer], [employer] or [employer] groups, or school groups? No [facility] Are you now , , , , never or living with a partner? [facility] How often to you hav e a drink containing alcohol? 2-4 times a month [facility] How many standard dr inks containing alcohol do you have on a typical day? 1 or 2 [facility] How often do you hav e 6 or more drinks on 1 occasion? Never [facility] Do you feel stress - tense, restless, nervous, or anxious, or unable to sleep at night because your mind is troubled all the time - these days [OSQ] Only a little [facility] (I/We) worried lyndsay perez (my/our) food would run out before (I/we) got money to buy more. Never true [facility] Start: 04-06-2021 Gender identity Identifies as female gender (finding) [facility] Start: 04-06-2021 Sexual orientation Heterosexual (finding) [facility] Do you belong to any clubs or organizations such as [employer] groups, [employer], [employer] or [employer] groups, or school groups? Yes [facility] Do you feel stress - tense, restless, nervous, or anxious, or unable to sleep at night because your mind is troubled all the time - these days [OSQ] Rather much [facility] Mental Status Date Assessment Result Facility 02-25-2022 Cognitive function Level Of Cons ciousness Awake;Alert;Appropriate;Follow s Commands [facility] Work Phone: 06-01-2021 Cognitive function Level Of Cons ciousness Awake;Alert;Appropriate;Follow s Commands [facility] Work Phone: Clinical Notes 06-23-2021 to 01-17-2025 Telephone Encounter - Christine Lovell PA-C - 01/17/2025 1:18 PM EDTTelephone Encounter - Christine Lovell PA-C - 01/17/2025 1:18 PM EDTPatient InstructionsPatient InstructionsPatient Instructions Note Date & Type Note Facility 01-17-2025 Telephone encounter Note Needs visit to discuss. Christine Lovell PA-C [facility] 01-17-2025 Miscellaneous Notes Needs visit to discuss. Christine Lovell PA-C Next appointment 03/25/25. documented in this encounter [facility] 01-17-2025 Telephone encounter Note The patient has been identified by name and date of : Yes Caregiver verified no other encounters exist for this prescription request: Yes Caregiver confirmed with patient/requestor that no other refills are due, in the near future, with this provider at this time: No The last office visit in the department: 09/22/2024 Does the patient have a future office visit with this provider/department: Yes 03/25/2025 Requested Prescriptions Pending Prescriptions Disp Refills baclofen 10 mg tablet 30 tablet 0 Sig: Take 1 tablet by mouth once daily. Vivian Allen MA January 17, 2025 9:59 AM [facility] 01-17-2025 Miscellaneous Notes The patient has been identified by name and date of : Yes Caregiver verified no other encounters exist for this prescription request: Yes Caregiver confirmed with patient/requestor that no other refills are due, in the near future, with this provider at this time: No The last office visit in the department: 09/22/2024 Does the patient have a future office visit with this provider/department: Yes 03/25/2025 Requested Prescriptions Pending Prescriptions Disp Refills baclofen 10 mg tablet 30 tablet 0 Sig: Take 1 tablet by mouth once daily. Vivian Allen MA January 17, 2025 9:59 AM documented in this encounter [facility] 01-17-2025 Telephone encounter Note Next appointment 03/25/25. [facility] 09-26-2024 Telephone encounter Note Pt returned call and given provider's message below with verbalized understanding. [facility] 09-26-2024 Miscellaneous Notes Pt returned call and given provider's message below with verbalized understanding. Left message for pt to contact office. Freddy Lovelace LPN Let [patient know her lab for hemochromatosis was neg for any of the three Variants. documented in this encounter [facility] 09-26-2024 Telephone encounter Note Left message for pt to contact office. Freddy Lovelace LPN [facility] 09-25-2024 Telephone encounter Note Let [patient know her lab for hemochromatosis was neg for any of the three Variants. [facility] 09-24-2024 Telephone encounter Note The following approved medication requests have been transmitted electronically. Requested Prescriptions Signed Prescriptions Disp Refills albuterol HFA (VENTOLIN HFA) 90 mcg/actuation inhaler 1 each 0 Sig: Inhale 2 puffs as instructed every 4 hours as needed. Inhale by mouth as instructed. buPROPion SR (WELLBUTRIN SR) 100 mg 12 hr tablet 180 tablet 1 Sig: Take one tab a day for a week and then go to one twice a day. Juan Meza MD [facility] 09-24-2024 Miscellaneous Notes The following approved medication requests have been transmitted electronically. Requested Prescriptions Signed Prescriptions Disp Refills albuterol HFA (VENTOLIN HFA) 90 mcg/actuation inhaler 1 each 0 Sig: Inhale 2 puffs as instructed every 4 hours as needed. Inhale by mouth as instructed. buPROPion SR (WELLBUTRIN SR) 100 mg 12 hr tablet 180 tablet 1 Sig: Take one tab a day for a week and then go to one twice a day. Juan Meza MD Contacted pharmacy and they did receive the wellbutrin. Will be ready for later today. Patient indicated that the Atarax doesn't work for her and that Dr. Meza talked about Ativan. Please review and advise. Adele Corona MA documented in this encounter [facility] 09-24-2024 Telephone encounter Note Contacted pharmacy and they did receive the wellbutrin. Will be ready for later today. Patient indicated that the Atarax doesn't work for her and that Dr. Meza talked about Ativan. Please review and advise. Adele Corona MA [facility] 09-22-2024 Instructions Juan Meza MD - 09/22/2024 1:12 PM EDT Please get lab test done on or after 03/08/2025 prior to your next visit. documented in this encounter [facility] 09-22-2024 History of Presen t illness Narrative Chief Complaint Patient presents with: Physical HPI Mai Wharton is a 54 year old female who presents here today for Physical. Patient with Hx Migraines, anxiety, GERD and using PPI as needed but not often as well as those reviewed and addressed below and in ROS. BP's at home have been good: running 115-121/78-81 Patient has been doing well. The bladder symptoms have resolved. Past medical history, appointments, medications, allergies reviewed. Previous Medical History PAST MEDICAL HISTORY Diagnosis Date Anxiety and depression 04/13/2021 Back spasm 01/26/2022 Takes prn baclofen (also helps headache's prn) Family history of hemochromatosis 09/12/2024 GERD (gastroesophageal reflux disease) 06/03/2009 Uses PRN prevacid as of 2008 Heartburn Idiopathic scoliosis 04/13/2021 Migraine without status migrainosus, not intractable 02/18/2022 Well adult exam 02/10/2023 Last done: 02/10/2023 Previous Surgical History PAST SURGICAL HISTORY Procedure Laterality Date EXTRACTION ERUPTED TOOTH U/S EXAM PERFUSION SOFT TISSUE MASS 12/19/2017 excision soft tissue mass pf posterior back Family History FAMILY HISTORY Problem Relation Age of Onset Cancer Mother cholangiocarcinoma Colon Cancer Other none Coronary Artery Disease Other none Diabetes Other none Patient Allergies ALLERGIES Allergen Reactions Bees Unknown Current Medications Current Outpatient Medications on File Prior to Visit Medication Sig nitrofurantoin monohydrate and macrocrystal (MACROBID) 100 mg capsule Take 1 capsule by mouth two times a day with meals for [address] (PROTONIX) 20 mg tablet Take 1 tablet by mouth daily before breakfast. Take on empty stomach, 1/2 hr before meal. phenazopyridine (PYRIDIUM) 200 mg tablet Take 1 tablet by mouth three times a day as needed. hydrOXYzine HCl (ATARAX) 10 mg tablet Take 1 tablet by mouth three times a day as needed. albuterol HFA (VENTOLIN HFA) 90 mcg/actuation inhaler Inhale 2 Puffs as instructed every 4 hours as needed. Inhale by mouth as instructed. baclofen 10 mg tablet Take 1 tablet by mouth once daily. rizatriptan (MAXALT KEYLINER) 10 mg disintegrating tablet Take 1 tablet by mouth as needed. May repeat in 2 hours if needed promethazine (PHENERGAN) 25 mg tablet Take 1 tablet by mouth every 6 hours as needed. EPINEPHrine (EPIPEN 2-ARLIN) 0.3 mg/0.3 mL auto-injector Inject 0.3 mL intramuscularly as needed. No current facility-administered medications on file prior to visit. Social History Social History Tobacco Use Smoking status: Never Smokeless tobacco: Never Vaping Use Vaping status: Never Used Substance Use Topics Alcohol use: Yes Comment: seldom Drug use: No Review of Symptoms REVIEW OF SYSTEMS GENERAL: No weight loss, malaise or fevers HEENT: Negative for frequent or significant headaches, No changes in hearing or vision, no nose bleeds or other nasal problems NECK: Negative for lumps, goiter, pain and significant neck swelling RESPIRATORY: Negative for cough, hemoptysis, wheezing, COPD, dyspnea or shortness of breath CARDIOVASCULAR: Negative for chest pain, leg swelling, hypertension, CHF or palpitations GI: No nausea, vomiting, or diarrhea, No frequent heartburn or reflux symptoms, and blood : No history of dysuria, frequency or blood MUSCULOSKELETAL: Negative for joint pain or swelling, back pain or muscle pain SKIN: Negative for lesions, rash, and itching PSYCH: having some increase anxiety and not sleeping well HEMATOLOGY/LYMPHOLOGY: Negative for prolonged bleeding, bruising easily or swollen nodes ENDOCRINE: Negative for cold or heat intolerance, polyuria, polydipsia and goiter NEURO: No history of headaches, syncope, paralysis, seizures or tremors EXAM: BP 131/95 Pulse (!) 128 Ht 160 cm (5' 3) Wt 87.1 kg (192 lb) LMP 01/24/2023 (Within Days) BMI 34.01 kg/m BP 118/79 Pulse (!) 128 Ht 160 cm (5' 3) Wt 87.1 kg (192 lb) LMP 01/24/2023 (Within Days) BMI 34.01 kg/m Last 6 Encounter Wt Readings: Date: Wt: 09/22/2024 87.1 kg (192 lb) 08/29/2024 85.7 kg (189 lb) 12/26/2023 85.2 kg (187 lb 13.3 oz) 08/08/2023 85.3 kg (188 lb) 02/10/2023 87.1 kg (192 lb) 04/20/2022 88.9 kg (196 lb) General Appearance: Well appearing, alert, in no acute distress, well-hydrated, well nourished. and Obese. Skin: Skin color, texture, turgor normal, no suspicious rashes or lesions. Head: Normocephalic, no masses, lesions, tenderness or abnormalities. Eyes: Anicteric sclera. Pupils are equally round and reactive to light. Extraocular movements are intact. . Ears: External ears, TM's normal, canals clear. Nose/Sinuses: Nares normal, septum midline, mucosa normal, no drainage or sinus tenderness. Oropharynx: Lips, mucosa, and tongue normal, teeth and gums normal, oropharynx normal. Neck: Supple, no adenopathy; thyroid symmetric, normal size, no bruits. Lungs: Lungs clear to auscultation. No wheezing, rhonchi, rales.. Heart: RRR without murmur, gallop, or rubs. No ectopy. Abdomen: Normal abdominal exam, Abdomen soft, non-tender. Bowel sounds normal. No masses, organomegaly. Extremities: No deformities, edema, skin discoloration, clubbing or cyanosis. Good capillary refill. . Musculoskeletal: Spine range of motion normal. Muscular strength intact, No joint swelling, deformity, or tenderness. Peripheral Pulses: Normal. Neurologic: Gait normal. Reflexes normal and symmetric. Sensation to light touch and crainal nerves 2-12 intact.. Health Maintenance List Colorectal Cancer Screening Never done Pneumococcal Vaccine: 50+(1 of 1 - PCV) Never done Shingrix Vaccine(2 of 2) due on 04/07/2023 Mammogram Screening due on 05/03/2023 Cervical Cancer Screening due on 04/13/2026 Diabetes Screening due on 09/21/2027 Lipid Screening due on 09/20/2029 DTaP,Tdap,Td Vaccine(2 - Td or Tdap) due on 11/21/2029 Hepatitis B Vaccine Completed Influenza Vaccine Completed Covid-19 Vaccine Completed Hepatitis C Screening Discontinued HIV Screening Discontinued Data reviewed Latest Ref Rng 09/20/2024 Total Cholesterol, Nonfasting <200 mg/dL 176 Triglycerides, Nonfasting <150 mg/dL 78 HDL Cholesterol, Nonfasting >39 mg/dL 47 LDL Cholesterol, Nonfasting <100 mg/dL 113 (H) Non HDL Cholesterol, Nonfasting <130 mg/dL 129 VLDL Cholesterol, Nonfasting <30 mg/dL 16 Total Chol/HDL Ratio, Nonfasting <5.10 mg/dL 3.74 LDL/HDL Ratio, Nonfasting <2.54 mg/dL 2.40 Iron 41 - 186 ug/dL 64 TIBC 232 - 386 ug/dL 495 (H) Transferrin Saturation 15.0 - 57.0 % 12.9 (L) Hemoglobin A1C 4.3 - 5.6 % 5.7 (H) Estimated Average Glucose mg/dL 117 Ferritin 14.7 - 205.1 ng/mL 26.1 A/P ASSESSMENT/PLAN: 1. Well adult exam - ICD9: V70.0, ICD10: Z00.00 (primary diagnosis) - Counseled on healthy diet and regular exercise - Discussed need and benefit for weight loss. BMI 34.01 kg/(m^2) - Patient counseled on and acknowledged vaccine benefits/risks/side effects; VIS provided: Pneumococcal and Shingrix - Follow up for annual exam in one year 2. Migraine without status migrainosus, not intractable, unspecified migraine type - ICD9: 346.90, ICD10: G43.909 - stable no changes. 3. Anxiety and depression - ICD9: 300.00, 311, ICD10: F41.9, F32.A - will place her on Wellbutrin. _ Hydroxyzine 10 mg TID prn - patient given forms for ADHD to bring back 4. Need for vaccination - ICD9: V05.9, ICD10: Z23 - ZOSTER VACCINE, RECOMBINANT (SHINGRIX): #2 given - PNEUMOCOCCAL VACCINE, 20 VALENT (PREVNAR 20): given 5. Encounter for screening mammogram for breast cancer - ICD9: V76.12, ICD10: Z12.31 - has an order in place 6. Wheezing - ICD9: 786.07, ICD10: R06.2 Cont prn - ALBUTEROL SULFATE HFA 90 MCG/ACTUATION AEROSOL INHALER 7. H/O bee sting allergy - ICD9: V15.06, ICD10: Z91.030 refill - EPINEPHRINE 0.3 MG/0.3 ML INJECTION, AUTO-INJECTOR 8. Screening for colon cancer - ICD9: V76.51, ICD10: Z12.11 - CONSULT TO GENERAL SURGERY Requested Prescriptions Signed Prescriptions Disp Refills albuterol HFA (VENTOLIN HFA) 90 mcg/actuation inhaler 1 each 0 Sig: Inhale 2 puffs as instructed every 4 hours as needed. Inhale by mouth as instructed. EPINEPHrine (EPIPEN 2-ARLIN) 0.3 mg/0.3 mL auto-injector 2 each 1 Sig: Inject 0.3 mL intramuscularly as needed. buPROPion SR (WELLBUTRIN SR) 100 mg 12 hr tablet 180 tablet 1 Sig: Take one tab a day for a week and then go to one twice a day. hydrOXYzine HCl (ATARAX) 10 mg tablet 90 tablet 1 Sig: Take 1 tablet by mouth three times a day as needed for anxiety. F/u in a month for Anxiety and sleep. F/u 6 month routine check A1c prior. Juan Meza MD documented in this encounter [facility] 09-22-2024 Note HNO ID: [id number] Author: JUAN MEZA MD Service: ? Author Type: Physician Type: Progress Notes Filed: 09/23/2024 21:11 Note Text: Chief Complaint Patient presents with: Physical HPI Mai Wharton is a 54 year old female who presents here today for Physical. Patient with Hx Migraines, anxiety, GERD and using PPI as needed but not often as well as those reviewed and addressed below and in ROS. BP's at home have been good: running 115-121/78-81 Patient has been doing well. The bladder symptoms have resolved. Past medical history, appointments, medications, allergies reviewed. Previous Medical History PAST MEDICAL HISTORY Diagnosis Date Anxiety and depression 04/13/2021 Back spasm 01/26/2022 Takes prn baclofen (also helps headache's prn) Family history of hemochromatosis 09/12/2024 GERD (gastroesophageal reflux disease) 06/03/2009 Uses PRN prevacid as of 2008 Heartburn Idiopathic scoliosis 04/13/2021 Migraine without status migrainosus, not intractable 02/18/2022 Well adult exam 02/10/2023 Last done: 02/10/2023 Previous Surgical History PAST SURGICAL HISTORY Procedure Laterality Date EXTRACTION ERUPTED TOOTH U/S EXAM PERFUSION SOFT TISSUE MASS 12/19/2017 excision soft tissue mass pf posterior back Family History FAMILY HISTORY Problem Relation Age of Onset Cancer Mother cholangiocarcinoma Colon Cancer Other none Coronary Artery Disease Other none Diabetes Other none Patient Allergies ALLERGIES Allergen Reactions Bees Unknown Current Medications Current Outpatient Medications on File Prior to Visit Medication Sig nitrofurantoin monohydrate and macrocrystal (MACROBID) 100 mg capsule Take 1 capsule by mouth two times a day with meals for [address] (PROTONIX) 20 mg tablet Take 1 tablet by mouth daily before breakfast. Take on empty stomach, 1/2 hr before meal. phenazopyridine (PYRIDIUM) 200 mg tablet Take 1 tablet by mouth three times a day as needed. hydrOXYzine HCl (ATARAX) 10 mg tablet Take 1 tablet by mouth three times a day as needed. albuterol HFA (VENTOLIN HFA) 90 mcg/actuation inhaler Inhale 2 Puffs as instructed every 4 hours as needed. Inhale by mouth as instructed. baclofen 10 mg tablet Take 1 tablet by mouth once daily. rizatriptan (MAXALT KEYLINER) 10 mg disintegrating tablet Take 1 tablet by mouth as needed. May repeat in 2 hours if needed promethazine (PHENERGAN) 25 mg tablet Take 1 tablet by mouth every 6 hours as needed. EPINEPHrine (EPIPEN 2-ARLIN) 0.3 mg/0.3 mL auto-injector Inject 0.3 mL intramuscularly as needed. No current facility-administered medications on file prior to visit. Social History Social History Tobacco Use Smoking status: Never Smokeless tobacco: Never Vaping Use Vaping status: Never Used Substance Use Topics Alcohol use: Yes Comment: seldom Drug use: No Review of Symptoms REVIEW OF SYSTEMS GENERAL: No weight loss, malaise or fevers HEENT: Negative for frequent or significant headaches, No changes in hearing or vision, no nose bleeds or other nasal problems NECK: Negative for lumps, goiter, pain and significant neck swelling RESPIRATORY: Negative for cough, hemoptysis, wheezing, COPD, dyspnea or shortness of breath CARDIOVASCULAR: Negative for chest pain, leg swelling, hypertension, CHF or palpitations GI: No nausea, vomiting, or diarrhea, No frequent heartburn or reflux symptoms, and blood : No history of dysuria, frequency or blood MUSCULOSKELETAL: Negative for joint pain or swelling, back pain or muscle pain SKIN: Negative for lesions, rash, and itching PSYCH: having some increase anxiety and not sleeping well HEMATOLOGY/LYMPHOLOGY: Negative for prolonged bleeding, bruising easily or swollen nodes ENDOCRINE: Negative for cold or heat intolerance, polyuria, polydipsia and goiter NEURO: No history of headaches, syncope, paralysis, seizures or tremors EXAM: BP 131/95 Pulse (!) 128 Ht 160 cm (5' 3) Wt 87.1 kg (192 lb) LMP 01/24/2023 (Within Days) BMI 34.01 kg/m? BP 118/79 Pulse (!) 128 Ht 160 cm (5' 3) Wt 87.1 kg (192 lb) LMP 01/24/2023 (Within Days) BMI 34.01 kg/m? Last 6 Encounter Wt Readings: Date: Wt: 09/22/2024 87.1 kg (192 lb) 08/29/2024 85.7 kg (189 lb) 12/26/2023 85.2 kg (187 lb 13.3 oz) 08/08/2023 85.3 kg (188 lb) 02/10/2023 87.1 kg (192 lb) 04/20/2022 88.9 kg (196 lb) General Appearance: Well appearing, alert, in no acute distress, well-hydrated, well nourished. and Obese. Skin: Skin color, texture, turgor normal, no suspicious rashes or lesions. Head: Normocephalic, no masses, lesions, tenderness or abnormalities. Eyes: Anicteric sclera. Pupils are equally round and reactive to light. Extraocular movements are intact. . Ears: External ears, TM's normal, canals clear. Nose/Sinuses: Nares normal, septum midline, mucosa normal, no drainage or sinus tenderness. Oropharynx: Lips, mucosa, (more content not included)... [facility] 09-17-2024 Telephone encounter Note Patient notified and voiced understanding. No symptoms. Should patient continue the antibiotics? Please let patient know via my chart. Adele Corona MA' [facility] 09-17-2024 Miscellaneous Notes Patient notified and voiced understanding. No symptoms. Should patient continue the antibiotics? Please let patient know via my chart. Adele Corona MA' Let patient know her urine culture was negative. If still having symptoms I would suggest she see [facility] for eval from a urogynocological point. documented in this encounter [facility] 09-16-2024 Telephone encounter Note Let patient know her urine culture was negative. If still having symptoms I would suggest she see [facility] [employer] for eval from a urogynocological point. [facility] 09-13-2024 Telephone encounter Note Please see pt's message. Freddy Lovelace LPN [facility] 09-13-2024 Miscellaneous Notes Please see pt's message. Freddy Lovelace LPN documented in this encounter [facility] 08-29-2024 Note HNO ID: [id number] Author: JUAN MEZA MD Service: ? Author Type: Physician Type: Progress Notes Filed: 08/30/2024 15:09 Note Text: Chief Complaint Patient presents with: UTI HPI Mai Wharton is a 54 year old female who presents here today for UTI Patient with Hx Migraines, anxiety, GERD and using PPI as needed but not often as well as those reviewed and addressed below and in ROS. Patient has been having symptoms since early August and was in [place]. She pushed fluids because she did not want to go to an express care. She got back from [place] the beginning of last week. The symptoms started to get worse and the urine was getting cloudy. On Tuesday she saw some blood in the urine. No flank pain. Having dysuria, spasms, urgency and frequency. Has felt hot and cold at times but not sure if a fever. Last night she was nauseated and vomited due to the pain. Past medical history, appointments, medications, allergies reviewed. Previous Medical History PAST MEDICAL HISTORY Diagnosis Date Anxiety and depression 04/13/2021 Back spasm 01/26/2022 Takes prn baclofen (also helps headache's prn) GERD (gastroesophageal reflux disease) 06/03/2009 Uses PRN prevacid as of 2008 Heartburn Idiopathic scoliosis 04/13/2021 Migraine without status migrainosus, not intractable 02/18/2022 Well adult exam 02/10/2023 Last done: 02/10/2023 Previous Surgical History PAST SURGICAL HISTORY Procedure Laterality Date EXTRACTION ERUPTED TOOTH U/S EXAM PERFUSION SOFT TISSUE MASS 12/19/2017 excision soft tissue mass pf posterior back Family History FAMILY HISTORY Problem Relation Age of Onset Cancer Mother cholangiocarcinoma Colon Cancer Other none Coronary Artery Disease Other none Diabetes Other none Patient Allergies ALLERGIES Allergen Reactions Bees Unknown Current Medications Current Outpatient Medications on File Prior to Visit Medication Sig hydrOXYzine HCl (ATARAX) 10 mg tablet Take 1 tablet by mouth three times a day as needed. pantoprazole DR (PROTONIX) 20 mg tablet Take 1 tablet by mouth daily before breakfast. Take on empty stomach, 1/2 hr before meal. albuterol HFA (VENTOLIN HFA) 90 mcg/actuation inhaler Inhale 2 Puffs as instructed every 4 hours as needed. Inhale by mouth as instructed. baclofen 10 mg tablet Take 1 tablet by mouth once daily. rizatriptan (MAXALT KEYLINER) 10 mg disintegrating tablet Take 1 tablet by mouth as needed. May repeat in 2 hours if needed promethazine (PHENERGAN) 25 mg tablet Take 1 tablet by mouth every 6 hours as needed. EPINEPHrine (EPIPEN 2-ARLIN) 0.3 mg/0.3 mL auto-injector Inject 0.3 mL intramuscularly as needed. EPINEPHrine (EPIPEN) 0.3 mg/0.3 mL auto-injector Inject 0.3 mL subcutaneously as needed. No current facility-administered medications on file prior to visit. Social History Social History Tobacco Use Smoking status: Never Smokeless tobacco: Never Vaping Use Vaping status: Never Used Substance Use Topics Alcohol use: Yes Comment: seldom Drug use: No Review of Symptoms REVIEW OF SYSTEMS See HPI EXAM: BP 150/100 Pulse (!) 125 Ht 158.8 cm (5' 2.5) Wt 85.7 kg (189 lb) LMP 01/24/2023 (Within Days) BMI 34.02 kg/m? BP 146/96 Pulse (!) 125 Ht 158.8 cm (5' 2.5) Wt 85.7 kg (189 lb) LMP 01/24/2023 (Within Days) BMI 34.02 kg/m? At the drug store last week was 122/81 General Appearance: Well appearing, alert, in no acute distress, well-hydrated, well nourished.. Back:no CVA tenderness. Abdomen: Abdomen soft, Bowel sounds normal. No masses, organomegaly. Has some supra pubic tenderness. Health Maintenance List Lipid Screening Never done Diabetes Screening Never done Colorectal Cancer Screening Never done Pneumococcal Vaccine: 50+(1 of 1 - PCV) Never done Shingrix Vaccine(2 of 2) due on 04/07/2023 Mammogram Screening due on 05/03/2023 Cervical Cancer Screening due on 04/13/2026 DTaP,Tdap,Td Vaccine(2 - Td or Tdap) due on 11/21/2029 Hepatitis B Vaccine Completed Influenza Vaccine Completed Covid-19 Vaccine Completed Hepatitis C Screening Discontinued HIV Screening Discontinued Data reviewed Latest Ref Rng 08/29/2024 GLUCOSE UA (POCT) Negative mg/dL Negative BILIRUBIN UA (POCT) Negative Moderate ! KETONE UA (POCT) Negative mg/dL 40 ! SPECIFIC GRAVITY UA (POCT) 1.005 - 1.030 1.020 HEMOGLOBIN/BLOOD UA (POCT) Negative Large ! PH UA (POCT) 4.5 - 8.0 6.0 PROTEIN UA (POCT) Negative mg/dL Negative UROBILINOGEN UA (POCT) Normal E.U./dL 1.0 NITRITE UA (POCT) Negative Negative LEUKOCYTES UA (POCT) Negative Large ! COLOR UA (POCT) Dark yellow CLARITY UA (POCT) Clear A/P ASSESSMENT/PLAN: 1. Acute cystitis with hematuria - ICD9: 595.0, ICD10: N30.01 (primary diagnosis) Check - will place on Cipro 500 mg twice a day for 10 days. 2. Dysuria - ICD9: 788.1, ICD10: R30.0 - UA DIP, URINE (POC): positive 3. Encounter for screening for diabetes me (more content not included)... [facility] 08-29-2024 History of Presen t illness Narrative Chief Complaint Patient presents with: UTI HPI Mai Wharton is a 54 year old female who presents here today for UTI Patient with Hx Migraines, anxiety, GERD and using PPI as needed but not often as well as those reviewed and addressed below and in ROS. Patient has been having symptoms since early August and was in [place]. She pushed fluids because she did not want to go to an express care. She got back from [place] the beginning of last week. The symptoms started to get worse and the urine was getting cloudy. On Tuesday she saw some blood in the urine. No flank pain. Having dysuria, spasms, urgency and frequency. Has felt hot and cold at times but not sure if a fever. Last night she was nauseated and vomited due to the pain. Past medical history, appointments, medications, allergies reviewed. Previous Medical History PAST MEDICAL HISTORY Diagnosis Date Anxiety and depression 04/13/2021 Back spasm 01/26/2022 Takes prn baclofen (also helps headache's prn) GERD (gastroesophageal reflux disease) 06/03/2009 Uses PRN prevacid as of 2008 Heartburn Idiopathic scoliosis 04/13/2021 Migraine without status migrainosus, not intractable 02/18/2022 Well adult exam 02/10/2023 Last done: 02/10/2023 Previous Surgical History PAST SURGICAL HISTORY Procedure Laterality Date EXTRACTION ERUPTED TOOTH U/S EXAM PERFUSION SOFT TISSUE MASS 12/19/2017 excision soft tissue mass pf posterior back Family History FAMILY HISTORY Problem Relation Age of Onset Cancer Mother cholangiocarcinoma Colon Cancer Other none Coronary Artery Disease Other none Diabetes Other none Patient Allergies ALLERGIES Allergen Reactions Bees Unknown Current Medications Current Outpatient Medications on File Prior to Visit Medication Sig hydrOXYzine HCl (ATARAX) 10 mg tablet Take 1 tablet by mouth three times a day as needed. pantoprazole DR (PROTONIX) 20 mg tablet Take 1 tablet by mouth daily before breakfast. Take on empty stomach, 1/2 hr before meal. albuterol HFA (VENTOLIN HFA) 90 mcg/actuation inhaler Inhale 2 Puffs as instructed every 4 hours as needed. Inhale by mouth as instructed. baclofen 10 mg tablet Take 1 tablet by mouth once daily. rizatriptan (MAXALT KEYLINER) 10 mg disintegrating tablet Take 1 tablet by mouth as needed. May repeat in 2 hours if needed promethazine (PHENERGAN) 25 mg tablet Take 1 tablet by mouth every 6 hours as needed. EPINEPHrine (EPIPEN 2-ARLIN) 0.3 mg/0.3 mL auto-injector Inject 0.3 mL intramuscularly as needed. EPINEPHrine (EPIPEN) 0.3 mg/0.3 mL auto-injector Inject 0.3 mL subcutaneously as needed. No current facility-administered medications on file prior to visit. Social History Social History Tobacco Use Smoking status: Never Smokeless tobacco: Never Vaping Use Vaping status: Never Used Substance Use Topics Alcohol use: Yes Comment: seldom Drug use: No Review of Symptoms REVIEW OF SYSTEMS See HPI EXAM: BP 150/100 Pulse (!) 125 Ht 158.8 cm (5' 2.5) Wt 85.7 kg (189 lb) LMP 01/24/2023 (Within Days) BMI 34.02 kg/m BP 146/96 Pulse (!) 125 Ht 158.8 cm (5' 2.5) Wt 85.7 kg (189 lb) LMP 01/24/2023 (Within Days) BMI 34.02 kg/m At the drug store last week was 122/81 General Appearance: Well appearing, alert, in no acute distress, well-hydrated, well nourished.. Back:no CVA tenderness. Abdomen: Abdomen soft, Bowel sounds normal. No masses, organomegaly. Has some supra pubic tenderness. Health Maintenance List Lipid Screening Never done Diabetes Screening Never done Colorectal Cancer Screening Never done Pneumococcal Vaccine: 50+(1 of 1 - PCV) Never done Shingrix Vaccine(2 of 2) due on 04/07/2023 Mammogram Screening due on 05/03/2023 Cervical Cancer Screening due on 04/13/2026 DTaP,Tdap,Td Vaccine(2 - Td or Tdap) due on 11/21/2029 Hepatitis B Vaccine Completed Influenza Vaccine Completed Covid-19 Vaccine Completed Hepatitis C Screening Discontinued HIV Screening Discontinued Data reviewed Latest Ref Rng 08/29/2024 GLUCOSE UA (POCT) Negative mg/dL Negative BILIRUBIN UA (POCT) Negative Moderate ! KETONE UA (POCT) Negative mg/dL 40 ! SPECIFIC GRAVITY UA (POCT) 1.005 - 1.030 1.020 HEMOGLOBIN/BLOOD UA (POCT) Negative Large ! PH UA (POCT) 4.5 - 8.0 6.0 PROTEIN UA (POCT) Negative mg/dL Negative UROBILINOGEN UA (POCT) Normal E.U./dL 1.0 NITRITE UA (POCT) Negative Negative LEUKOCYTES UA (POCT) Negative Large ! COLOR UA (POCT) Dark yellow CLARITY UA (POCT) Clear A/P ASSESSMENT/PLAN: 1. Acute cystitis with hematuria - ICD9: 595.0, ICD10: N30.01 (primary diagnosis) Check - will place on Cipro 500 mg twice a day for 10 days. 2. Dysuria - ICD9: 788.1, ICD10: R30.0 - UA DIP, URINE (POC): positive 3. Encounter for screening for diabetes mellitus - ICD9: V77.1, ICD10: Z13.1 Check - HEMOGLOBIN A1C 4. Encounter for lipid screening for cardiovascular disease - ICD9: V77.91, V81.2, ICD10: Z13.220, Z13.6 Check - LIPID PANEL, NONFASTING 5. Screening for colon cancer - ICD9: V76.51, ICD10: Z12.11 - CONSULT TO GENERAL SURGERY Requested Prescriptions Signed Prescriptions Disp Refills pantoprazole DR (PROTONIX) 20 mg tablet 90 tablet 1 Sig: Take 1 tablet by mouth daily before breakfast. Take on empty stomach, 1/2 hr before meal. ciprofloxacin HCl (CIPRO) 500 mg tablet 20 tablet 0 Sig: Take 1 tablet by mouth two times a day for 10 days. phenazopyridine (PYRIDIUM) 200 mg tablet 9 tablet 1 Sig: Take 1 tablet by mouth three times a day as needed. F/u in three weeks WAE. Juan Meza MD documented in this encounter [facility] 07-13-2024 Note HNO ID: [id number] Author: FREDDY LOVELACE LPN Service: ? Author Type: LICENSED NURSE Type: Progress Notes Filed: 07/13/2024 13:16 Note Text: Scan on 07/13/2024 12:41 PM by ProviderCorinne PA-C: Consultation - PT/OT/Speech [facility] 07-13-2024 History of Presen t illness Narrative Scan on 07/13/2024 12:41 PM by ProviderCorinne PA-C: Consultation - PT/OT/Speech documented in this encounter [facility] 06-19-2024 Note Patient Outreach (FA MPWS) MAI WHARTON ([id number]) 1970 F Date Time Provider Department 06/19/24 JUAN MEZA During your visit today, we recorded the following information about you: Allergies As of Date: 06/19/2024 Noted Allergy Reaction BEES 01/12/2007 16 - Unknown Date Reviewed: 12/26/2023 Reviewed by: Letha Lazaro MA - Fully Assessed Visit Diagnosis:Encounter for screening mammogram for breast cancer [Z12.31] Order(s):[facility] SCREENING W KEL [[id number]] Order #: [id number] FUTURE Prescriptions as of 07/20/2024 - hydrOXYzine HCl (ATARAX) 10 mg tablet Take 1 tablet by mouth three times a day as needed. - pantoprazole DR (PROTONIX) 20 mg tablet Take 1 tablet by mouth daily before breakfast. Take on empty stomach, 1/2 hr before meal. - albuterol HFA (VENTOLIN HFA) 90 mcg/actuation inhaler Inhale 2 Puffs as instructed every 4 hours as needed. Inhale by mouth as instructed. - baclofen 10 mg tablet Take 1 tablet by mouth once daily. - rizatriptan (MAXALT KEYLINER) 10 mg disintegrating tablet Take 1 tablet by mouth as needed. May repeat in 2 hours if needed - promethazine (PHENERGAN) 25 mg tablet Take 1 tablet by mouth every 6 hours as needed. - EPINEPHrine (EPIPEN 2-ARLIN) 0.3 mg/0.3 mL auto-injector Inject 0.3 mL intramuscularly as needed. - EPINEPHrine (EPIPEN) 0.3 mg/0.3 mL auto-injector Inject 0.3 mL subcutaneously as needed. Problem List As Of Date 06/19/2024 Noted Resolved Encounter for routine gynecological examination*06/03/2009 Class: Chronic GERD (gastroesophageal reflux disease) [K21.9] 06/03/2009 Lipoma of torso [D17.1] 12/13/2017 Anxiety and depression [F41.9, F32.A] 04/13/2021 Encounter for screening for diabetes mellitus [*04/13/2021 Idiopathic scoliosis [M41.20] 04/13/2021 Back spasm [M62.830] 01/26/2022 Migraine without status migrainosus, not intrac*02/18/2022 Well adult exam [Z00.00] 02/10/2023 Screening for colon cancer [Z12.11] 02/10/2023 Encounter Status:Closed by JOSSELIN MEANS on 07/20/24 [facility] 06-05-2024 Telephone encounter Note Prescription Refill Information The patient has been identified by name and date of : Yes Caregiver verified no other encounters exist for this prescription request: Yes Caregiver confirmed with patient/requestor that no other refills are due, in the near future, with this provider at this time: Yes The last office visit in the department: 02/10/23 Does the patient have a future office visit with this provider/department: Yes 08/29/24 Requested Prescriptions Pending Prescriptions Disp Refills pantoprazole DR (PROTONIX) 20 mg tablet 90 tablet 1 Sig: Take 1 tablet by mouth daily before breakfast. Take on empty stomach, 1/2 hr before meal. Sarah Diaz LPN June 05, 2024 7:00 AM [facility] 06-05-2024 Miscellaneous Notes Prescription Refill Information The patient has been identified by name and date of : Yes Caregiver verified no other encounters exist for this prescription request: Yes Caregiver confirmed with patient/requestor that no other refills are due, in the near future, with this provider at this time: Yes The last office visit in the department: 02/10/23 Does the patient have a future office visit with this provider/department: Yes 08/29/24 Requested Prescriptions Pending Prescriptions Disp Refills pantoprazole DR (PROTONIX) 20 mg tablet 90 tablet 1 Sig: Take 1 tablet by mouth daily before breakfast. Take on empty stomach, 1/2 hr before meal. Sarah Diaz LPN June 05, 2024 7:00 AM documented in this encounter [facility] 06-05-2024 Telephone encounter Note Prescription Refill Information The patient has been identified by name and date of : Yes Caregiver verified no other encounters exist for this prescription request: Yes Caregiver confirmed with patient/requestor that no other refills are due, in the near future, with this provider at this time: Yes The last office visit in the department: 02/10/23 Does the patient have a future office visit with this provider/department: Yes 08/29/24 Requested Prescriptions Pending Prescriptions Disp Refills hydrOXYzine HCl (ATARAX) 10 mg tablet 90 tablet 0 Sig: Take 1 tablet by mouth three times a day as needed. Sarah Diaz LPN June 05, 2024 6:59 AM [facility] 06-05-2024 Miscellaneous Notes Prescription Refill Information The patient has been identified by name and date of : Yes Caregiver verified no other encounters exist for this prescription request: Yes Caregiver confirmed with patient/requestor that no other refills are due, in the near future, with this provider at this time: Yes The last office visit in the department: 9/7/23 Does the patient have a future office visit with this provider/department: Yes 08/29/24 Requested Prescriptions Pending Prescriptions Disp Refills hydrOXYzine HCl (ATARAX) 10 mg tablet 90 tablet 0 Sig: Take 1 tablet by mouth three times a day as needed. Sarah Diaz LPN June 05, 2024 6:59 AM documented in this encounter [facility] 05-21-2024 Note HNO ID: [id number] Author: FREDDY LOVELACE LPN Service: ? Author Type: LICENSED NURSE Type: Progress Notes Filed: 05/21/2024 08:27 Note Text: Scan on 05/21/2024 8:09 AM by ProviderCorinne PA-C: Consultation - Emergency Medicine [facility] 05-21-2024 History of Presen t illness Narrative Scan on 05/21/2024 8:09 AM by Corinne Tatum PA-C: Consultation - Emergency Medicine documented in this encounter [facility] 04-23-2024 Telephone encounter Note See Seiratherm message. Vivian Allen MA [facility] 04-23-2024 Miscellaneous Notes See Seiratherm message. Vivian Allen MA documented in this encounter [facility] 12-27-2023 Telephone encounter Note Patient given results and verbalized understanding of instructions given. Letha Lazaro MA [facility] 12-27-2023 Miscellaneous Notes Patient given results and verbalized understanding of instructions given. Letha Lazaro MA Please notify that covid testing negative. Continue with plan of care as discussed during visit. documented in this encounter [facility] 12-27-2023 Telephone encounter Note Please notify that covid testing negative. Continue with plan of care as discussed during visit. [facility] Work Phone: 12-26-2023 Telephone encounter Note Approved. PDMP website checked and validated. All prescriptions have been APPROPRIATELY filled. No suspicious activity was identified. 12/26/2023 by Jackson Moreno APRN.CNP The following approved medication requests have been transmitted electronically. Requested Prescriptions Signed Prescriptions Disp Refills LORazepam (ATIVAN) 0.5 mg 2 tablet 0 Sig: Take one tab 30-40 min prior to flight Authorizing Provider: JACKSON MORENO APRN.CNP [facility] 12-26-2023 Miscellaneous Notes Approved. PDMP website checked and validated. All prescriptions have been APPROPRIATELY filled. No suspicious activity was identified. 12/26/2023 by Jackson Moreno APRN.CNP The following approved medication requests have been transmitted electronically. Requested Prescriptions Signed Prescriptions Disp Refills LORazepam (ATIVAN) 0.5 mg 2 tablet 0 Sig: Take one tab 30-40 min prior to flight Authorizing Provider: JACKSON MORENO APRN.CNP Patient is leaving for [place] tomorrow and requests refill of Ativan for flights. documented in this encounter [facility] 12-26-2023 Telephone encounter Note Patient is leaving for [place] tomorrow and requests refill of Ativan for flights. [facility] 12-26-2023 History of Presen t illness Narrative Radiology Service Progress Note PATIENT NAME: Mai Wharton DATE OF SERVICE: December 26, 2023 TIME: 9:16 AM PATIENT IDENTITY VERIFICATION COMPLETED USING TWO (2) IDENTIFIERS: Name and Date of confirmed by patient verbally. FALL SCREENING: Has the patient had 2 falls in the last year or 1 fall with injury or currently using an Ambulatory Assistive Device (Walker, Cane, Wheelchair, Crutches, etc.)? No PATIENT GENDER DATA: Female. status: : No status: NO. PATIENT RELEVANT IMPLANT DATA REVIEWED: Yes PATIENT PRESENTS WITH AN IMPLANTABLE OR ATTACHED CORK PRESSING MACHINE OPERATOR: No RADIOLOGY DEPARTMENT: General X-ray: Exam(s) Completed: Chest X-Ray PERIPHERAL IV DATA: Not applicable SIGNED BY: RT Nancy(Jered) December 26, 2023 9:16 AM documented in this encounter [facility] 12-26-2023 Note HNO ID: [id number] Author: EUGENIA SHEPARD RT(R) Service: Radiology Author Type: Technologist Type: Progress Notes Filed: 12/26/2023 09:24 Note Text: Radiology Service Progress Note PATIENT NAME: Mai Wharton DATE OF SERVICE: December 26, 2023 TIME: 9:16 AM PATIENT IDENTITY VERIFICATION COMPLETED USING TWO (2) IDENTIFIERS: Name and Date of confirmed by patient verbally. FALL SCREENING: Has the patient had 2 falls in the last year or 1 fall with injury or currently using an Ambulatory Assistive Device (Walker, Cane, Wheelchair, Crutches, etc.)? No PATIENT GENDER DATA: Female. status: : No status: NO. PATIENT RELEVANT IMPLANT DATA REVIEWED: Yes PATIENT PRESENTS WITH AN IMPLANTABLE OR ATTACHED CORK PRESSING MACHINE OPERATOR: No RADIOLOGY DEPARTMENT: General X-ray: Exam(s) Completed: Chest X-Ray PERIPHERAL IV DATA: Not applicable SIGNED BY: Eugenia Shepard, RT(R) December 26, 2023 9:16 AM [facility] 12-26-2023 Note HNO ID: [id number] Author: VAN CARVAJAL MD Service: ? Author Type: Physician Type: Progress Notes Filed: 12/26/2023 09:46 Note Text: Patient presents with: Cough: x 4 days HPI: Feeling sick for 4 days. Positive symptoms: Cough, Shortness of breath, Wheezing, Chest tightness, improved Sinus pressure, Nasal Congestion, Fever (last fever 2 days ago), Malaise, Negative symptoms: OTC: Ibuprofen, albuterol Denies history of COVID or pneumonia. She has allergy induced asthma. No history of smoking. Home COVID test negative. Hx of white coat hypertension and tachycardia. BP taken last week was 120s/80s last week. She is flying to [place] tomorrow. PAST MEDICAL HISTORY Diagnosis Date Anxiety and depression 04/13/2021 Back spasm 01/26/2022 Takes prn baclofen (also helps headache's prn) GERD (gastroesophageal reflux disease) 06/03/2009 Uses PRN prevacid as of 2008 Heartburn Idiopathic scoliosis 04/13/2021 Migraine without status migrainosus, not intractable 02/18/2022 Well adult exam 02/10/2023 Last done: 02/10/2023 MEDICATIONS: Current Outpatient Medications Medication Sig hydrOXYzine HCl (ATARAX) 10 mg tablet Take 1 tablet by mouth three times a day as needed. baclofen 10 mg tablet Take 1 tablet by mouth once daily. pantoprazole DR (PROTONIX) 20 mg tablet Take 1 tablet by mouth daily before breakfast. Take on empty stomach, 1/2 hr before meal. rizatriptan (MAXALT KEYLINER) 10 mg disintegrating tablet Take 1 tablet by mouth as needed. May repeat in 2 hours if needed promethazine (PHENERGAN) 25 mg tablet Take 1 tablet by mouth every 6 hours as needed. EPINEPHrine (EPIPEN 2-ARLIN) 0.3 mg/0.3 mL auto-injector Inject 0.3 mL intramuscularly as needed. albuterol HFA (VENTOLIN HFA) 90 mcg/actuation inhaler Inhale 2 Puffs as instructed every 4 hours as needed. Inhale by mouth as instructed. EPINEPHrine (EPIPEN) 0.3 mg/0.3 mL auto-injector Inject 0.3 mL subcutaneously as needed. No current facility-administered medications for this visit. ALLERGIES: ALLERGIES Allergen Reactions Bees Unknown Hayfever [Homeopath* Unknown VITALS: BP 154/104 Pulse (!) 136 Temp 36.7 ?C (98.1 ?F) Resp 20 Wt 85.2 kg (187 lb 13.3 oz) LMP 01/24/2023 (Within Days) SpO2 99% BMI 33.27 kg/m? . PHYSICAL EXAM: GEN: pleasant, mildly ill appearing HEENT: PERRL, EOMI, conjunctiva clear Ears: canals clear. TMs without erythema, bulge, or effusion Sinuses: non-tender frontal sinus, non-tender maxillary sinuses Throat: moist mucous membranes, mild erythema, no exudate Neck: supple, no thyromegaly, no lymphadenopathy HEART: rate around 100 during my exam, regular rhythm, no murmurs LUNGS: few faint scattered right mid to lower lung wheezes or crackles, no increased WOB; productive sounding cough. ASSESSMENT/PLAN: 1. Acute cough - ICD9: 786.2, ICD10: R05.1 (primary diagnosis) 2. Wheezing - ICD9: 786.07, ICD10: R06.2 - XR CHEST 2V FRONTAL/LAT - No acute radiographic abnormality. Viral URI with bronchitis. Repeat - COVID NAAT, UPPER RESPIRATORY, ROUTINE - DOXYCYCLINE MONOHYDRATE 100 MG CAPSULE - plans to hold unless fever returns or symptoms worsen. - BENZONATATE 100 MG CAPSULE - ALBUTEROL SULFATE HFA 90 MCG/ACTUATION AEROSOL INHALER - PREDNISONE 10 MG TABLET taper. She would like [facility] refill for flights. Request sent to PCP. Van Carvajal MD [facility] 12-26-2023 History of Presen t illness Narrative Patient presents with: Cough: x 4 days HPI: Feeling sick for 4 days. Positive symptoms: Cough, Shortness of breath, Wheezing, Chest tightness, improved Sinus pressure, Nasal Congestion, Fever (last fever 2 days ago), Malaise, Negative symptoms: OTC: Ibuprofen, albuterol Denies history of COVID or pneumonia. She has allergy induced asthma. No history of smoking. Home COVID test negative. Hx of white coat hypertension and tachycardia. BP taken last week was 120s/80s last week. She is flying to [place] tomorrow. PAST MEDICAL HISTORY Diagnosis Date Anxiety and depression 04/13/2021 Back spasm 01/26/2022 Takes prn baclofen (also helps headache's prn) GERD (gastroesophageal reflux disease) 06/03/2009 Uses PRN prevacid as of 2008 Heartburn Idiopathic scoliosis 04/13/2021 Migraine without status migrainosus, not intractable 02/18/2022 Well adult exam 02/10/2023 Last done: 02/10/2023 MEDICATIONS: Current Outpatient Medications Medication Sig hydrOXYzine HCl (ATARAX) 10 mg tablet Take 1 tablet by mouth three times a day as needed. baclofen 10 mg tablet Take 1 tablet by mouth once daily. pantoprazole DR (PROTONIX) 20 mg tablet Take 1 tablet by mouth daily before breakfast. Take on empty stomach, 1/2 hr before meal. rizatriptan (MAXALT KEYLINER) 10 mg disintegrating tablet Take 1 tablet by mouth as needed. May repeat in 2 hours if needed promethazine (PHENERGAN) 25 mg tablet Take 1 tablet by mouth every 6 hours as needed. EPINEPHrine (EPIPEN 2-ARLIN) 0.3 mg/0.3 mL auto-injector Inject 0.3 mL intramuscularly as needed. albuterol HFA (VENTOLIN HFA) 90 mcg/actuation inhaler Inhale 2 Puffs as instructed every 4 hours as needed. Inhale by mouth as instructed. EPINEPHrine (EPIPEN) 0.3 mg/0.3 mL auto-injector Inject 0.3 mL subcutaneously as needed. No current facility-administered medications for this visit. ALLERGIES: ALLERGIES Allergen Reactions Bees Unknown Hayfever [Homeopath* Unknown VITALS: BP 154/104 Pulse (!) 136 Temp 36.7 C (98.1 F) Resp 20 Wt 85.2 kg (187 lb 13.3 oz) LMP 01/24/2023 (Within Days) SpO2 99% BMI 33.27 kg/m . PHYSICAL EXAM: GEN: pleasant, mildly ill appearing HEENT: PERRL, EOMI, conjunctiva clear Ears: canals clear. TMs without erythema, bulge, or effusion Sinuses: non-tender frontal sinus, non-tender maxillary sinuses Throat: moist mucous membranes, mild erythema, no exudate Neck: supple, no thyromegaly, no lymphadenopathy HEART: rate around 100 during my exam, regular rhythm, no murmurs LUNGS: few faint scattered right mid to lower lung wheezes or crackles, no increased WOB; productive sounding cough. ASSESSMENT/PLAN: 1. Acute cough - ICD9: 786.2, ICD10: R05.1 (primary diagnosis) 2. Wheezing - ICD9: 786.07, ICD10: R06.2 - XR CHEST 2V FRONTAL/LAT - No acute radiographic abnormality. Viral URI with bronchitis. Repeat - COVID NAAT, UPPER RESPIRATORY, ROUTINE - DOXYCYCLINE MONOHYDRATE 100 MG CAPSULE - plans to hold unless fever returns or symptoms worsen. - BENZONATATE 100 MG CAPSULE - ALBUTEROL SULFATE HFA 90 MCG/ACTUATION AEROSOL INHALER - PREDNISONE 10 MG TABLET taper. She would like Ativan refill for flights. Request sent to PCP. aVn Carvajal MD documented in this encounter [facility] 10-06-2023 Telephone encounter Note Patient has been identified by name and date of : Yes, Provider Dr Meza Patient phones for refill(s): Requested Prescriptions Pending Prescriptions Disp Refills hydrOXYzine HCl (ATARAX) 10 mg tablet 90 tablet 0 Sig: Take 1 tablet by mouth three times a day as needed. Date of last office visit in primary care: 02/10/2023 Date of next office visit in primary care: Visit date not found Last Refill: 07/28/22 #90 0 refills Pt did not complete lab orders & orders were canceled by the lab. Please advise. Thank you. Catrina Arceo LPN. [facility] 10-06-2023 Miscellaneous Notes Patient has been identified by name and date of : Yes, Provider Dr Meza Patient phones for refill(s): Requested Prescriptions Pending Prescriptions Disp Refills hydrOXYzine HCl (ATARAX) 10 mg tablet 90 tablet 0 Sig: Take 1 tablet by mouth three times a day as needed. Date of last office visit in primary care: 02/10/2023 Date of next office visit in primary care: Visit date not found Last Refill: 07/28/22 #90 0 refills Pt did not complete lab orders & orders were canceled by the lab. Please advise. Thank you. Catrina Arceo LPN. documented in this encounter [facility] 10-03-2023 Telephone encounter Note Patient has been identified by name and date of : Yes, Provider Juan Meza MD Date October 03, 2023 Time 9:31 AM Patient phones for refill(s): Requested Prescriptions Pending Prescriptions Disp Refills baclofen 10 mg tablet 30 tablet 0 Sig: Take 1 tablet by mouth once daily. pantoprazole DR (PROTONIX) 20 mg tablet 90 tablet 1 Sig: Take 1 tablet by mouth daily before breakfast. Take on empty stomach, 1/2 hr before meal. Date of last office visit in primary care: 02/10/2023 Date of next office visit in primary care: none Please advise. Thank you. Vivina Allen MA. [facility] 10-03-2023 Miscellaneous Notes Patient has been identified by name and date of : Yes, Provider Juan Meza MD Date October 03, 2023 Time 9:31 AM Patient phones for refill(s): Requested Prescriptions Pending Prescriptions Disp Refills baclofen 10 mg tablet 30 tablet 0 Sig: Take 1 tablet by mouth once daily. pantoprazole DR (PROTONIX) 20 mg tablet 90 tablet 1 Sig: Take 1 tablet by mouth daily before breakfast. Take on empty stomach, 1/2 hr before meal. Date of last office visit in primary care: 02/10/2023 Date of next office visit in primary care: none Please advise. Thank you. Vivian Allen MA. documented in this encounter [facility] 08-08-2023 Instructions Shakira Plummer APRN.DENTAL CERAMIST ASSISTANT - 08/08/2023 1:41 PM EST ASSESSMENT/PLAN: 1. Toe injury, right, initial encounter - ICD9: 959.7, ICD10: S99.921A - XR TOE AP/LAT/OBL RIGHT IMPRESSION: No radiographic evidence of acute osseous injury National Business Director: MING Transcribe Date/Time: Aug 08 2023 1:27P Dictated by : YAZAN TAYLOR MD - toe cleaned with hydrogen peroxide and water; bandaid applied. - wash area daily with soap and water, dry thoroughly and apply a new bandaid. - keep clean and dry. Change bandage daily. - Follow-up with your PCP in 3-5 days if symptoms have not improved or sooner if symptoms worsen - Discussed red flags and need for immediate medical evaluation if any occur. - Discussed supportive care treatment with rest and analgesia. - Discussed expected course of illness Shakira Plummer APRN.DENTAL CERAMIST ASSISTANT documented in this encounter [facility] 08-08-2023 History of Presen t illness Narrative Radiology Service Progress Note PATIENT NAME: Mai Wharton DATE OF SERVICE: August 08, 2023 TIME: 1:16 PM PATIENT IDENTITY VERIFICATION COMPLETED USING TWO (2) IDENTIFIERS: Name and Date of confirmed by patient verbally. FALL SCREENING: Has the patient had 2 falls in the last year or 1 fall with injury or currently using an Ambulatory Assistive Device (Walker, Cane, Wheelchair, Crutches, etc.)? No PATIENT GENDER DATA: Female. status: : No status: NO. PATIENT RELEVANT IMPLANT DATA REVIEWED: Not Applicable PATIENT PRESENTS WITH AN IMPLANTABLE OR ATTACHED CORK PRESSING MACHINE OPERATOR: No RADIOLOGY DEPARTMENT: General X-ray: Exam(s) Completed: Lower Extremity X-Ray(s): Toes, Right PERIPHERAL IV DATA: Not applicable SIGNED BY: RT Doc(R) August 08, 2023 1:16 PM documented in this encounter [facility] 08-08-2023 History of Presen t illness Narrative Images from the original note were not included. Subjective HPI Mai Wharton is a 53 year old female who presents with right 5th toe injury. She states it got stuck in between 2 deck boards about 15 minutes ago. She states it is not very painful . She would like to know if it needs stitches, as it has been bleeding. She did not take any medication after the injury- states her sister gave her a cocktail today, which had tylenol in it. Review of Systems Constitutional: Negative for chills and fever. Musculoskeletal: Positive for joint pain. Negative for falls. Skin: See HPI Pulse (!) 122 Temp 36.1 C (96.9 F) Resp 20 Wt 85.3 kg (188 lb) LMP 01/24/2023 (Within Days) SpO2 97% BMI 33.30 kg/m PAST MEDICAL HISTORY Diagnosis Date Anxiety and depression 04/13/2021 Back spasm 01/26/2022 Takes prn baclofen (also helps headache's prn) GERD (gastroesophageal reflux disease) 06/03/2009 Uses PRN prevacid as of 2008 Heartburn Idiopathic scoliosis 04/13/2021 Migraine without status migrainosus, not intractable 02/18/2022 Well adult exam 02/10/2023 Last done: 02/10/2023 PAST SURGICAL HISTORY Procedure Laterality Date EXTRACTION ERUPTED TOOTH U/S EXAM PERFUSION SOFT TISSUE MASS 12/19/2017 excision soft tissue mass pf posterior back ALLERGIES Bees and Hayfever [Homeopathic Products] MEDICATIONS pantoprazole DR (PROTONIX) 20 mg tablet Take 1 tablet by mouth daily before breakfast. Take on empty stomach, 1/2 hr before meal. baclofen (LIORESAL) 10 mg tablet Take 1 tablet by mouth once daily. hydrOXYzine HCl (ATARAX) 10 mg tablet Take 1 tablet by mouth three times daily as needed. rizatriptan (MAXALT KEYLINER) 10 mg disintegrating tablet Take 1 tablet by mouth as needed. May repeat in 2 hours if needed promethazine (PHENERGAN) 25 mg tablet Take 1 tablet by mouth every 6 hours as needed. EPINEPHrine (EPIPEN 2-ARLIN) 0.3 mg/0.3 mL auto-injector Inject 0.3 mL intramuscularly as needed. albuterol HFA (VENTOLIN HFA) 90 mcg/actuation inhaler Inhale 2 Puffs as instructed every 4 hours as needed. Inhale by mouth as instructed. EPINEPHrine (EPIPEN) 0.3 mg/0.3 mL auto-injector Inject 0.3 mL subcutaneously as needed. FAMILY HISTORY Problem Relation Age of Onset Cancer Mother cholangiocarcinoma Colon Cancer Other none Coronary Artery Disease Other none Diabetes Other none Social History Tobacco Use Smoking status: Never Smokeless tobacco: Never Vaping Use Vaping Use: Never used Substance Use Topics Alcohol use: Yes Comment: seldom Drug use: No Objective Physical Exam Vitals and nursing note reviewed. Constitutional: Appearance: Normal appearance. Musculoskeletal: General: Swelling, tenderness and signs of injury present. No deformity. Feet: Skin: General: Skin is warm and dry. Capillary Refill: Capillary refill takes less than 2 seconds. Findings: Bruising present. No erythema or rash. Neurological: Mental Status: She is alert. ASSESSMENT/PLAN: 1. Toe injury, right, initial encounter - ICD9: 959.7, ICD10: S99.921A - XR TOE AP/LAT/OBL RIGHT IMPRESSION: No radiographic evidence of acute osseous injury National Business Director: MING Transcribe Date/Time: Aug 08 2023 1:27P Dictated by : YAZAN TAYLOR MD - toe cleaned with hydrogen peroxide and water; bandaid applied. - wash area daily with soap and water, dry thoroughly and apply a new bandaid. - keep clean and dry. Change bandage daily. - Follow-up with your PCP in 3-5 days if symptoms have not improved or sooner if symptoms worsen - Discussed red flags and need for immediate medical evaluation if any occur. - Discussed supportive care treatment with rest and analgesia. - Discussed expected course of illness Shakira Plummer APRN.DENTAL CERAMIST ASSISTANT documented in this encounter [facility] 02-10-2023 History of Presen t illness Narrative Chief Complaint Patient presents with: Physical HPI Mai Wharton is a 52 year old female who presents here today for Physical. Office visit - physical 02/10/2023 Patient with Hx Migraines, anxiety, GERD and using PPI as needed but not often as well as those reviewed and addressed below and in ROS. Patient has been doing physiotherapy she has had much less migraines. Has not needed a Maxalt since she catches it early and can manage with an NSAID. Patient indicated that her BP taken by her sister who is a nurse was 118/72. Her BP in office first reading was 168/96 with a pulse of 128. Patient indicated that she is always very anxious when coming to the doctor. Otherwise has been doing ok. She admits to not taking maxalt at the beginning of headache symptoms. Migraines have seemed to occur a day before her menstrual cycle starts. She has had to missed periods this year and starting to notice other possible menopausal symptoms and hot flashes. Patient's MANAGER PHOTO had her lexopro and ativan she has D/C. Past medical history, appointments, medications, allergies reviewed. Previous Medical History PAST MEDICAL HISTORY Diagnosis Date Anxiety and depression 04/13/2021 Back spasm 01/26/2022 Takes prn baclofen (also helps headache's prn) GERD (gastroesophageal reflux disease) 06/03/2009 Uses PRN prevacid as of 2008 Heartburn Idiopathic scoliosis 04/13/2021 Previous Surgical History PAST SURGICAL HISTORY Procedure Laterality Date EXTRACTION ERUPTED TOOTH U/S EXAM PERFUSION SOFT TISSUE MASS 12/19/2017 excision soft tissue mass pf posterior back Family History FAMILY HISTORY Problem Relation Age of Onset Cancer Mother cholangiocarcinoma Colon Cancer Other none Coronary Artery Disease Other none Diabetes Other none Patient Allergies ALLERGIES Allergen Reactions Bees Unknown Hayfever [Homeopath* Unknown Current Medications Current Outpatient Medications on File Prior to Visit Medication Sig baclofen (LIORESAL) 10 mg tablet Take 1 tablet by mouth once daily. hydrOXYzine HCl (ATARAX) 10 mg tablet Take 1 tablet by mouth three times daily as needed. rizatriptan (MAXALT KEYLINER) 10 mg disintegrating tablet Take 1 tablet by mouth as needed. May repeat in 2 hours if needed promethazine (PHENERGAN) 25 mg tablet Take 1 tablet by mouth every 6 hours as needed. EPINEPHrine (EPIPEN 2-ARLIN) 0.3 mg/0.3 mL auto-injector Inject 0.3 mL intramuscularly as needed. albuterol HFA (VENTOLIN HFA) 90 mcg/actuation inhaler Inhale 2 Puffs as instructed every 4 hours as needed. Inhale by mouth as instructed. EPINEPHrine (EPIPEN) 0.3 mg/0.3 mL auto-injector Inject 0.3 mL subcutaneously as needed. No current facility-administered medications on file prior to visit. Social History Social History Tobacco Use Smoking status: Never Smokeless tobacco: Never Vaping Use Vaping Use: Never used Substance Use Topics Alcohol use: Yes Comment: seldom Drug use: No Review of Symptoms REVIEW OF SYSTEMS GENERAL: No weight loss, malaise or fevers HEENT: Negative for frequent or significant headaches, No changes in hearing or vision, no nose bleeds or other nasal problems. Just her yearly allergies. NECK: Negative for lumps, goiter, pain and significant neck swelling RESPIRATORY: Negative for cough, hemoptysis, wheezing, COPD, dyspnea or shortness of breath CARDIOVASCULAR: Negative for chest pain, leg swelling, hypertension, CHF or changes in her palpitations with anxiety. GI: No nausea, vomiting, or diarrhea, No frequent heartburn or reflux symptoms, and no blood : No history of dysuria, frequency or blood MUSCULOSKELETAL: Negative for joint pain or swelling, back pain or muscle pain SKIN: Negative for lesions, rash, and itching PSYCH: Negative for sleep disturbance, mood disorder and recent psychosocial stressors HEMATOLOGY/LYMPHOLOGY: Negative for prolonged bleeding, bruising easily or swollen nodes ENDOCRINE: Negative for cold or heat intolerance, polyuria, polydipsia and goiter NEURO: No history of syncope, paralysis, seizures or tremors. See HPI EXAM: BP 148/96 Pulse (!) 128 Ht 160 cm (5' 3) Wt 87.1 kg (192 lb) LMP 01/24/2023 (Within Days) BMI 34.01 kg/m BP 118/78 Pulse (!) 128 Ht 160 cm (5' 3) Wt 87.1 kg (192 lb) LMP 01/24/2023 (Within Days) BMI 34.01 kg/m Last 5 Encounter Wt Readings: Date: Wt: 02/10/2023 87.1 kg (192 lb) 04/20/2022 88.9 kg (196 lb) 03/19/2022 88.9 kg (196 lb) 02/05/2022 0 kg () 09/30/2021 84.8 kg (187 lb) General Appearance: Well appearing, alert, in no acute distress, well-hydrated, well nourished. and Obese. Skin: Skin color, texture, turgor normal, no suspicious rashes or lesions. Lipoma right upper back Head: Normocephalic, no masses, lesions, tenderness or abnormalities. Eyes: Anicteric sclera. Pupils are equally round and reactive to light. Extraocular movements are intact. . Ears: External ears normal, canals clear. Nose/Sinuses: Nares normal, septum midline, mucosa normal, no drainage or sinus tenderness. Oropharynx: Lips, mucosa, and tongue normal, teeth and gums normal, oropharynx normal. Neck: Supple, no adenopathy; thyroid symmetric, normal size, no bruits. Lungs: Lungs clear to auscultation. No wheezing, rhonchi, rales.. Heart: RRR without murmur, gallop, or rubs. No ectopy. Abdomen: Normal abdominal exam, Abdomen soft, non-tender. Bowel sounds normal. No masses, organomegaly. Extremities: No deformities, edema, skin discoloration, Good capillary refill. . Musculoskeletal: Muscular strength intact, No joint swelling, deformity, or tenderness. Peripheral Pulses: Normal. Neurologic: Gait normal. Reflexes normal and symmetric. Sensation to light touch and crainal nerves 2-12 intact.. Health Maintenance List LIPID SCREEN Never done DIABETES SCREEN Never done COLORECTAL CANCER SCREENING Never done SHINGRIX VACCINE(1 of 2) Never done INFLUENZA(1) due on 02/04/2023 MAMMOGRAM due on 05/03/2023 PAP TESTING due on 04/13/2026 HPV TESTING due on 04/13/2026 DTAP,TDAP,TD(2 - Td or Tdap) due on 11/21/2029 HEPATITIS B Completed COVID-19 VACCINE Completed HEPATITIS C SCREENING Discontinued HIV SCREENING Discontinued Data reviewed A/P ASSESSMENT/PLAN: 1. Well adult exam - ICD9: V70.0, ICD10: Z00.00 (primary diagnosis) - Counseled on healthy diet and regular exercise - Calcium intake with supplements or by diet of 1000 mg/day for under 50, 5009-8615 mg/day for 50+ - Discussed need and benefit for weight loss. BMI 34.01 kg/(m^2) - Patient was counseled [id number] by myself (the billing provider) for the following immunizations and vaccine components, including side effects: Shingrix. Patient consents for immunization and understands risks and benefits. A VIS sheet on each immunization was given to the patient. - Follow up for annual exam in one year Check - LIPID PANEL BASIC - GLUCOSE FASTING BLD - HGB A1C 2. Gastroesophageal reflux disease without esophagitis - ICD9: 530.81, ICD10: K21.9 - Continue treatment with Prontonix 20 mg QD 3. Migraine without status migrainosus, not intractable, unspecified migraine type - ICD9: 346.90, ICD10: G43.909 - clinically stable 4. Anxiety and depression - ICD9: 300.00, 311, ICD10: F41.9, F32.A - cont prn atarax. 5. Screening for diabetes mellitus (DM) - ICD9: V77.1, ICD10: Z13.1 Check - GLUCOSE FASTING BLD - HGB A1C 6. Need for vaccination - ICD9: V05.9, ICD10: Z23 - ZOSTER VACCINE, RECOMBINANT (SHINGRIX) #1 7. Screening for colon cancer - ICD9: V76.51, ICD10: Z12.11 - CONSULT TO GENERAL SURGERY 8. Generalized anxiety disorder - ICD9: 300.02, ICD10: F41.1 - LORAZEPAM 0.5 MG TABLET prior to flying 9. Encounter for lipid screening for cardiovascular disease - ICD9: V77.91, V81.2, ICD10: Z13.220, Z13.6 Check - LIPID PANEL BASIC Requested Prescriptions Signed Prescriptions Disp Refills pantoprazole DR (PROTONIX) 20 mg tablet 90 tablet 1 Sig: Take 1 tablet by mouth daily before breakfast. Take on empty stomach, 1/2 hr before meal. LORazepam (ATIVAN) 0.5 mg 2 tablet 0 Sig: Take one tab 30-40 min prior to flight nitrofurantoin monohydrate and macrocrystal (MACROBID) 100 mg capsule 14 capsule 0 Sig: Take 1 capsule by mouth twice daily with meals for 7 days. For UTI F/u in a year for complete PE or sooner if issues. Juan Meza MD documented in this encounter [facility] 07-28-2022 Miscellaneous Notes Below concerns addressed in separate refill encounter. Message has been sent to patient with update and information to schedule provided. RICK Alvarez Advise patient refill only given for 30 days. Was to be seen for routine back in April and cancelled it but never rescheduled. Needs seen. The following approved medication requests have been transmitted electronically. Requested Prescriptions Signed Prescriptions Disp Refills baclofen (LIORESAL) 10 mg tablet 30 tablet 0 Sig: Take 1 tablet by mouth once daily. Authorizing Provider: JUAN MEZA MD Patient has been identified by name and date of : Yes, Provider Dr. Meza Date 07/28/22 Time 8:17 am Patient phones for refill(s): Requested Prescriptions Pending Prescriptions Disp Refills baclofen (LIORESAL) 10 mg tablet 90 tablet 1 Sig: Take 1 tablet by mouth once daily. Date of last office visit in primary care: 03/19/22 next apt no follow up scheduled Last 2 Encounter Wt Readings: Date: Wt: 04/20/2022 88.9 kg (196 lb) 03/19/2022 88.9 kg (196 lb) Previous labs/tests for medication: Not applicable Please advise. Thank you. Ritu Flores LPN documented in this encounter [facility] 07-28-2022 Miscellaneous Notes Pt updated through and contact information for scheduling provided. RICK Alvarez Advise patient refills only given for 30 days. Was to be seen for routine back in April and cancelled it but never rescheduled. Needs seen. Albuterol refill denied. Patient has no documented Hx of asthma. The following approved medication requests have been transmitted electronically. Requested Prescriptions Signed Prescriptions Disp Refills hydrOXYzine HCl (ATARAX) 10 mg tablet 90 tablet 0 Sig: Take 1 tablet by mouth three times daily as needed. Authorizing Provider: JUAN MEZA rizatriptan (MAXALT KEYLINER) 10 mg disintegrating tablet 9 tablet 0 Sig: Take 1 tablet by mouth as needed. May repeat in 2 hours if needed Authorizing Provider: JUAN MEZA promethazine (PHENERGAN) 25 mg tablet 30 tablet 0 Sig: Take 1 tablet by mouth every 6 hours as needed. Authorizing Provider: JUAN MEZA MD Patient has been identified by name and date of : Yes, Provider Dr. Meza Date 07/28/22 Time 8:19 am Patient phones for refill(s): Requested Prescriptions Pending Prescriptions Disp Refills albuterol HFA (VENTOLIN HFA) 90 mcg/actuation inhaler 1 Each 0 Sig: Inhale 2 Puffs as instructed every 4 hours as needed. Inhale by mouth as instructed. hydrOXYzine HCl (ATARAX) 10 mg tablet 90 tablet 1 Sig: Take 1 tablet by mouth three times daily as needed. rizatriptan (MAXALT KEYLINER) 10 mg disintegrating tablet 9 tablet 5 Sig: Take 1 tablet by mouth as needed. May repeat in 2 hours if needed promethazine (PHENERGAN) 25 mg tablet 30 tablet 5 Sig: Take 1 tablet by mouth every 6 hours as needed. Date of last office visit in primary care: 03/19/22 no follow up scheduled Last 2 Encounter Wt Readings: Date: Wt: 04/20/2022 88.9 kg (196 lb) 03/19/2022 88.9 kg (196 lb) Previous labs/tests for medication: Not applicable Please advise. Thank you. Ritu Flores LPN documented in this encounter [facility] 06-04-2022 Miscellaneous Notes Patient reports she is having UTI s/s since yesterday: urgency, pain, burning. No flank pain. Asking if pcp would call Rx into her pharmacy. Advised patient would need to be seen in office. Patient declined office visit, stating she would stop at EC. documented in this encounter [facility] 05-17-2022 Nurse Note The back (site) was assessed and sutures were removed as ordered. Dressing was applied. Patient instructed on wound care and verbalized understanding. Steristrips applied. Patient tolerated well. Elsa Rodriguez LPN documented in this encounter [facility] 05-11-2022 History of Presen t illness Narrative FOLLOW UP VISIT - SKIN LESION NAME: Mai Paz [facility] NO.: [id number] DATE OF SERVICE: 05/07/2022 : 1970 REFERRING PHYSICIAN: Juan Meaz MD Mai is a patient I am following for a recurrent lipoma on her back. Mai returns today for the procedure. Mai has not taken aspirin or aspirin products for the past 7 days. VITALS: Last menstrual period 11/11/2021. On examination, +recurrent lipoma deep to well-healed surgical incision PROCEDURE: excision of recurrent lipomatous tissue on back The risks, benefits and anticipated outcomes of the procedure, the risks and benefits of the alternatives to the procedure, and the roles and tasks of the personnel to be involved, were discussed with the patient, and the patient consents to the procedure and agrees to proceed. I verify that I personally obtained the patient's consent. The patient`s skin was prepped and draped in the usual fashion. A combination of Lidocaine and Marcaine was injected into the skin. A linear incision was made over the lipoma. The lipoma was dissected from overlying scar tissue and removed piecemeal, aggregating to 5 cm in size. This was not sent to pathology. The skin was then closed with interrupted 3-0 nylon, vicryl sutures. The patient tolerated the procedure well. Assessment IMPRESSION: s/p re-excision of recurrent lipoma on back PLAN: If the patient notes any problems or signs of wound infections, the patient should contact me immediately. The patient is to follow up in approximately 7-10 days for suture removal. Diagnoses: (D17.1) Lipoma of torso (primary encounter diagnosis) Return to Clinic: The patient is instructed to Mirela Coronel PA-C UNIVERSAL PROTOCOL / SAFETY CHECKLIST Procedure to be Performed: Re-excision of recurrent lipoma on back Sign In: A Moment of CARE was completed. Personnel directly involved with the procedure wore the appropriate PPE (Personal Protective Equipment). No special equipment needed. Patient/Surrogate Stated/Verified: PATIENT VERIFIED(optional for EMERGENT procedures): Patient name, Date of , Relevant allergies, and The intended procedure Time Out Communication: Intended patient and procedure match the source documents. Consent documented and matches the intended procedure. No correct side/site applicable for marking and visibility. Medications required for procedure verified. No fire risk assessment and interventions applicable. No implant(s) inserted. Sign Out: SIGN OUT (optional for EMERGENT procedures): No specimen collected. No instruments, equipment or retained foreign bodies applicable. Gina Cerna LPN documented in this encounter [facility] 05-07-2022 Instructions Gina Cerna LPN - 05/07/2022 9:11 AM EST The following instructions are important for you related to your office visit today with the [facility] General Surgeons. Instructions After SKIN EXCISION-SUTURES You can remove the dressing in two days. If the dressing becomes soaked or had significant drainage, the dressing should be changed. If there is minor bleeding from this skin edge, you should hold pressure on the incision until the bleeding stops. If there is continued bleeding, you should contact our office immediately. You do not need to leave a dressing on the wound after two days. If the wound shows signs of redness, inflammation, or purulent drainage, you should contact our office immediately. You should keep the wound dry for the first two days. After that time, you may wash the wound with gentle soap and water. The wound should not be immersed in a pool, bathtub, or even hot tub. We prefer to check the incision and remove the stitches in our office when ready. Please make an appointment to return to our office in 7 to 10 days. Please do not remove the stitches yourself without approval from our office. If you note any additional difficulties, questions, or concerns, you should contact our office immediately @ [phone] and ask to be transferred to the General Surgery department. documented in this encounter [facility] 04-20-2022 History of Presen t illness Narrative HISTORY AND PHYSICAL Mai Wharton 1970 REFERRING PHYSICIAN: Juan Meza MD CHIEF COMPLAINT: recurrent lipoma HPI: The patient is a 51 year old female with complaint of a recurrent lipoma on her back. Patient previously underwent excision of a large back lipoma under anesthesia by Dr. Michael. She notes over the last couple of years this has started to re-form at same site and is becoming noticeable under clothing again. She desires re-excision. She states she would like to try this as a smaller procedure in office if possible. SIGNIFICANT MEDICAL PROBLEMS: PAST MEDICAL HISTORY Diagnosis Date Anxiety and depression 04/13/2021 Back spasm 01/26/2022 Takes prn baclofen (also helps headache's prn) GERD (gastroesophageal reflux disease) 06/03/2009 Uses PRN prevacid as of 2008 Heartburn Idiopathic scoliosis 04/13/2021 OPERATIONS: PAST SURGICAL HISTORY Procedure Laterality Date EXTRACTION ERUPTED TOOTH U/S EXAM PERFUSION SOFT TISSUE MASS 12/19/2017 excision soft tissue mass pf posterior back CURRENT MEDICATIONS: Current Outpatient Medications Medication Sig Dispense Refill promethazine (PHENERGAN) 25 mg tablet Take 1 tablet by mouth every 6 hours as needed. 30 tablet 5 rizatriptan (MAXALT KEYLINER) 10 mg disintegrating tablet Take 1 tablet by mouth as needed. May repeat in 2 hours if needed 9 tablet 5 hydrOXYzine HCl (ATARAX) 10 mg tablet Take 1 tablet by mouth three times daily as needed. 90 tablet 1 EPINEPHrine (EPIPEN 2-ARLIN) 0.3 mg/0.3 mL auto-injector Inject 0.3 mL intramuscularly as needed. 2 Each 1 albuterol HFA (VENTOLIN HFA) 90 mcg/actuation inhaler Inhale 2 Puffs as instructed every 4 hours as needed. Inhale by mouth as instructed. 1 Each 0 baclofen (LIORESAL) 10 mg tablet Take 1 tablet by mouth once daily. 90 tablet 1 EPINEPHrine (EPIPEN) 0.3 mg/0.3 mL auto-injector Inject 0.3 mL subcutaneously as needed. 1 Each 1 No current facility-administered medications for this visit. ALLERGIES: Bees and Hayfever [Homeopathic Products] PERSONAL HISTORY: Social History Tobacco Use Smoking status: Never Smokeless tobacco: Never Vaping Use Vaping Use: Never used Substance Use Topics Alcohol use: Yes Comment: seldom Drug use: No FAMILY HISTORY: FAMILY HISTORY Problem Relation Age of Onset Cancer Mother cholangiocarcinoma Colon Cancer Other none Coronary Artery Disease Other none Diabetes Other none REVIEW OF SYMPTOMS: The review of systems data was entered by the nurse and reviewed by hi Nursing Notes: Cynthia Rizo LPN 04/20/2022 10:06 AM Sign at exiting of workspace REVIEW OF SYSTEMS: General: The patient denies fatigue, denies weight loss, notes weight gain, denies feeling hot, and denies feelings of cold. Eyes: The patient denies glaucoma, denies eye injury/surgery, does not wear glasses or contacts. Ear/Nose/Throat: The patient denies allergies, notes hayfever, denies ear infections, and denies bloody noses. Cardiovascular: The patient denies chest pain, denies heart disease, denies high blood pressure,denies cardiac stent, denies prior heart attack, denies irregular heart beat, denies high cholesterol, denies poor circulation, denies heart failure, other cardiac issues, denies claudication, denies cold feet, denies peripheral arterial stent. Respiratory: The patient denies tuberculosis, denies pneumonia, denies frequent cough, denies pulmonary embolism, denies shortness of breath, and denies coughing up blood. Gastrointestinal: The patient denies difficulty swallowing, denies acid reflux, denies ulcers, denies vomiting, denies jaundice/hepatitis, denies gallbladder problems, denies black or tarry stools, denies hemorrhoids, denies bleeding from rectum, denies diverticulitis, denies constipation, denies diarrhea, denies loss of stool control, and denies hernias. Kidney/Bladder: The patient denies kidney stones, denies urine infections, and denies bloody urine. Skin: The patient denies a history of skin cancer, denies bleeding/changing moles, and denies a history of skin rash. Neurologic: The patient denies a history of epilepsy/convulsions, denies headaches, denies head/spinal injuries, and denies stroke/TIA. Psychiatric: The patient denies psychiatric medications, denies depression, and denies voices, denies substance abuse. Endocrine: The patient denies thyroid disorders, denies diabetes, and denies hormonal problems. Hematologic: The patient denies a history of bruising, denies bleeding, and denies anemia, denies blood clots. Infections: The patient denies a history of measles and mumps, denies rheumatic fever, and denies sexually transmitted diseases. Musculoskeletal: The patient denies back pain/injury, denies back problems, denies sciatica, denies knee/foot trouble, denies arthritis, or denies gout. When was patient's last Mammogram screening? Scheduled at end of month Last [facility]: General: The patient is 51 year old female, well nourished, well hydrated in no acute distress. The patient is oriented to time, place, and person. VITALS: Blood pressure (P) 144/86, pulse (P) 106, temperature 36.6 C (97.8 F), resp. rate (P) 17, weight 88.9 kg (196 lb), last menstrual period 11/11/2021, SpO2 (P) 100 %. Body mass index is 34.73 kg/m . HEENT: Normal cephalic, ataumatic, pupils are equally round, sclera are anicteric, mucous membranes are moist, oropharynx is clear. Neck has no masses, asymmetry or lymphadenopathy. Thyroid is unremarkable. Respiratory: Clear to auscultation and percussion. Normal respiratory excursion and pattern. Cardiac: Examination is regular rate and rhythm. Abdominal exam: Soft, nontender, with no palpable masses. No hepatosplenomegaly. No palpable hernias. Rectal exam: exam deferred Extremities: no clubbing, cyanosis or edema. No adenopathy. Other: +5 cm rubbery mobile lump deep to well-healed scar right mid back LABORATORY VALUES: As Noted RADIOLOGIC STUDIES: As Noted Assessment IMPRESSION: recurrent lipoma on back PLAN: Mai will return for excision of the lipoma at a later date. The patient is instructed not to take aspirin for 1 week prior to the procedure. Patient wishes to have office procedure attempted under local anesthetic, states wants to avoid larger procedure if possible. Discussed limitations of local anesthetic in office and possible recurrence if lesion not able to be completely re-excised. Patient verbalized understanding of all above and agreed with the plan. Diagnoses: (D17.1) Lipoma of torso (primary encounter diagnosis) Mirela Coronel PA-C documented in this encounter [facility] 04-20-2022 Instructions Mirela Coronel PA-C - 04/20/2022 10:10 AM EST Return 05/07/22 @ 8 am for re-excision lipoma on back documented in this encounter [facility] 04-20-2022 Nurse Note REVIEW OF SYSTEMS: General: The patient denies fatigue, denies weight loss, notes weight gain, denies feeling hot, and denies feelings of cold. Eyes: The patient denies glaucoma, denies eye injury/surgery, does not wear glasses or contacts. Ear/Nose/Throat: The patient denies allergies, notes hayfever, denies ear infections, and denies bloody noses. Cardiovascular: The patient denies chest pain, denies heart disease, denies high blood pressure,denies cardiac stent, denies prior heart attack, denies irregular heart beat, denies high cholesterol, denies poor circulation, denies heart failure, other cardiac issues, denies claudication, denies cold feet, denies peripheral arterial stent. Respiratory: The patient denies tuberculosis, denies pneumonia, denies frequent cough, denies pulmonary embolism, denies shortness of breath, and denies coughing up blood. Gastrointestinal: The patient denies difficulty swallowing, denies acid reflux, denies ulcers, denies vomiting, denies jaundice/hepatitis, denies gallbladder problems, denies black or tarry stools, denies hemorrhoids, denies bleeding from rectum, denies diverticulitis, denies constipation, denies diarrhea, denies loss of stool control, and denies hernias. Kidney/Bladder: The patient denies kidney stones, denies urine infections, and denies bloody urine. Skin: The patient denies a history of skin cancer, denies bleeding/changing moles, and denies a history of skin rash. Neurologic: The patient denies a history of epilepsy/convulsions, denies headaches, denies head/spinal injuries, and denies stroke/TIA. Psychiatric: The patient denies psychiatric medications, denies depression, and denies voices, denies substance abuse. Endocrine: The patient denies thyroid disorders, denies diabetes, and denies hormonal problems. Hematologic: The patient denies a history of bruising, denies bleeding, and denies anemia, denies blood clots. Infections: The patient denies a history of measles and mumps, denies rheumatic fever, and denies sexually transmitted diseases. Musculoskeletal: The patient denies back pain/injury, denies back problems, denies sciatica, denies knee/foot trouble, denies arthritis, or denies gout. When was patient's last Mammogram screening? Scheduled at end of month Last Colonoscopy: N/A Cynthia Rizo LPN documented in this encounter [facility] 03-19-2022 History of Presen t illness Narrative Chief Complaint Patient presents with: Immunizations: Shingles, flu Immunizations: Flu vaccination HPI Mai Wharton is a 51 year old female who presents here today for Above Complaints.. Patient was seen about a month ago for migraines and was prescribed 5mg maxalt. With her last migraine she noted no improvement with taking 1 and then 2 hours later taking a second dose. Ended up in ER and was given migraine cocktail which helped. She admits to not taking maxalt at the beginning of headache symptoms. Migraines have seemed to occur a day before her menstrual cycle starts. She has had to missed periods this year and starting to notice other possible menopausal symptoms. Past medical history, appointments, medications, allergies reviewed. Previous Medical History PAST MEDICAL HISTORY Diagnosis Date Anxiety and depression 04/13/2021 Back spasm 01/26/2022 Takes prn baclofen (also helps headache's prn) GERD (gastroesophageal reflux disease) 06/03/2009 Uses PRN prevacid as of 2008 Heartburn Idiopathic scoliosis 04/13/2021 Previous Surgical History PAST SURGICAL HISTORY Procedure Laterality Date EXTRACTION ERUPTED TOOTH U/S EXAM PERFUSION SOFT TISSUE MASS 12/19/2017 excision soft tissue mass pf posterior back Family History FAMILY HISTORY Problem Relation Age of Onset Cancer Mother cholangiocarcinoma Colon Cancer Other none Coronary Artery Disease Other none Diabetes Other none Patient Allergies ALLERGIES Allergen Reactions Bees Unknown Hayfever [Homeopath* Unknown Current Medications Current Outpatient Medications on File Prior to Visit Medication Sig rizatriptan (MAXALT KEYLINER) 10 mg disintegrating tablet Take 1 tablet by mouth as needed. May repeat in 2 hours if needed hydrOXYzine HCl (ATARAX) 10 mg tablet Take 1 tablet by mouth three times daily as needed. EPINEPHrine (EPIPEN 2-ARLIN) 0.3 mg/0.3 mL auto-injector Inject 0.3 mL intramuscularly as needed. albuterol HFA (VENTOLIN HFA) 90 mcg/actuation inhaler Inhale 2 Puffs as instructed every 4 hours as needed. Inhale by mouth as instructed. baclofen (LIORESAL) 10 mg tablet Take 1 tablet by mouth once daily. EPINEPHrine (EPIPEN) 0.3 mg/0.3 mL auto-injector Inject 0.3 mL subcutaneously as needed. No current facility-administered medications on file prior to visit. Social History Social History Tobacco Use Smoking status: Never Smokeless tobacco: Never Vaping Use Vaping Use: Never used Substance Use Topics Alcohol use: Yes Comment: seldom Drug use: No Review of Symptoms REVIEW OF SYSTEMS See hpi EXAM: BP 136/82 Pulse 104 Resp 18 Wt 88.9 kg (196 lb) LMP 11/11/2021 (Within Days) SpO2 96% BMI 34.73 kg/m General Appearance: Well appearing, alert, in no acute distress, well-hydrated, well nourished.. Health Maintenance List HEPATITIS B(3 of 3 - Hep B Twinrix 3-dose series) due on 04/27/2011 MAMMOGRAM Never done LIPID SCREEN Never done DIABETES SCREEN Never done SHINGRIX VACCINE(1 of 2) Never done INFLUENZA(1) due on 02/04/2022 COVID-19 VACCINE(5 - Booster for Pfizer series) due on 02/25/2022 COLORECTAL CANCER SCREENING due on 04/13/2022 PAP TESTING due on 04/13/2026 HPV TESTING due on 04/13/2026 DTAP,TDAP,TD(2 - Td or Tdap) due on 11/21/2029 HEPATITIS C SCREENING Discontinued HIV SCREENING Discontinued Data reviewed ASSESSMENT/PLAN: 1. Migraine without status migrainosus, not intractable, unspecified migraine type - ICD9: 346.90, ICD10: G43.909 (primary diagnosis) Advised patient to make sure to take maxalt at onset of migraine. Phenegran for prn nausea. She can try starting naproxen 2 days prior to expected menstrual cycle Keep follow up next month. If migraines continue to worsen, will submit for MRI brain. 2. Need for influenza vaccination - ICD9: V04.81, ICD10: Z23 - INFLUENZA VACCINE QUADRIVALENT 6 MO - 64 YRS IM Christine Lovell PA-C documented in this encounter [facility] 03-16-2022 Miscellaneous Notes Referral and info has been faxed to [facility] Left message of same on pt's vm. Freddy Lovelace LPN Order placed. Patient calls and states that she has not been to Physical Therapy for her neck for a couple of months. Patient states that she needs a new order for Physical Therapy. Patient asking if this can be faxed to [facility]. Patient wants a call back if and when this gets sent. Please review and advise, Fang Love RN documented in this encounter [facility] 03-16-2022 Miscellaneous Notes Pt notified and voiced understanding. Vivian Allen Ma She could take 1 twice a day just as needed and to let me know if that makes a difference. Christine Lovell PA-C Pt notified of Christine's message. Pt verbalizes understanding. Pt reports that she did take second dose 2 hours after the first dose. Did schedule a f/u appointment at this time. Pt states she has chronic muscle spasms that go up the back of her neck. States this has been worse the past two days and is also up in her shoulder to her ear. Thinks this might be contributing to migraines. Questions if it would be ok to take the baclofen twice daily. It is prescribed as once daily. Ok to leave . Freddy Lovelace LPN I will send in 10mg tablets. But I need to know if she took the second dose 2 hours after the first dose. And I would like a follow up scheduled in 1 month. Must be in person visit. Pt had appt 02/18/22 and prescribed Maxalt 5 mg for migraines. Pt reports this is not working for her headaches. Pt reports she went to ER 02/25 because of migraine. Pt reports provider advised that the dose of medication may need be increased. Pt is asking for provider to review and advise. Luisa Parker LPN documented in this encounter [facility] 02-18-2022 Miscellaneous Notes Pt had vv today with Christine. Freddy Lovelace LPN Left message for pt to contact office. Freddy Lovelace LPN Last login for patient was on 02/14/22 per [facility] records and system did not check her in. Can try to reschedule. May be error in system? Christine Lovell PA-C Patient calling said Christine did not come on her my chart for her appt at 140 pm today. Patient said she had pre visit questions done and was in virtual waiting room at 130 pm. Please call her about the appt? documented in this encounter [facility] 02-18-2022 History of Presen t illness Narrative [facility] video visit was used for evaluation of this patient. Patient consents to visit. Patient's location: [place] Chief Complaint No chief complaint on file. DOROTHY Wharton is a 51 year old female who presents here today via virtual for med check. Patient was last seen in october 2021 for depression/anxiety. Her lexapro was switched to zoloft. She states she wasn't on it very long before deciding that she didn't need medication anymore. She still would like to have the hydroxyzine on hand though as she has found that helpful with both anxiety and her allergies. Other concern today is migraines. She just started recognizing the pattern of having headache on right side of head and is associated with phonophobia, n/v and post headache syndrome of fatigue and feeling drained. This happens the day before her menstrual cycle and has been occurring for at least the past year. Has noted some menstrual changes as well. Has skipped a couple cycles and notes no migraines when that happens. She did have a CT brain scan earlier this year that was normal. Past medical history, appointments, medications, allergies reviewed. Previous Medical History PAST MEDICAL HISTORY Diagnosis Date Anxiety and depression 04/13/2021 Back spasm 01/26/2022 Takes prn baclofen (also helps headache's prn) GERD (gastroesophageal reflux disease) 06/03/2009 Uses PRN prevacid as of 2008 Heartburn Idiopathic scoliosis 04/13/2021 Previous Surgical History PAST SURGICAL HISTORY Procedure Laterality Date EXTRACTION ERUPTED TOOTH U/S EXAM PERFUSION SOFT TISSUE MASS 12/19/2017 excision soft tissue mass pf posterior back Family History FAMILY HISTORY Problem Relation Age of Onset Cancer Mother cholangiocarcinoma Colon Cancer Other none Coronary Artery Disease Other none Diabetes Other none Patient Allergies ALLERGIES Allergen Reactions Bees Unknown Hayfever [Homeopath* Unknown Current Medications Current Outpatient Medications on File Prior to Visit Medication Sig EPINEPHrine (EPIPEN 2-ARLIN) 0.3 mg/0.3 mL auto-injector Inject 0.3 mL intramuscularly as needed. albuterol HFA (VENTOLIN HFA) 90 mcg/actuation inhaler Inhale 2 Puffs as instructed every 4 hours as needed. Inhale by mouth as instructed. baclofen (LIORESAL) 10 mg tablet Take 1 tablet by mouth once daily. hydrOXYzine HCl (ATARAX) 10 mg tablet Take 1 tablet by mouth three times daily as needed. cefADROxil (DURICEF) 500 mg capsule Take 1 capsule by mouth twice daily. sertraline (ZOLOFT) 50 mg tablet 1/2 a tablet by mouth once a day for 14 days then go to one tablet daily (Patient not taking: Reported on 02/05/2022) EPINEPHrine (EPIPEN) 0.3 mg/0.3 mL auto-injector Inject 0.3 mL subcutaneously as needed. No current facility-administered medications on file prior to visit. Social History Social History Tobacco Use Smoking status: Never Smokeless tobacco: Never Vaping Use Vaping Use: Never used Substance Use Topics Alcohol use: Yes Comment: seldom Drug use: No Review of Symptoms REVIEW OF SYSTEMS See hpi EXAM: LMP 11/11/2021 (Within Days) Any vital signs collected today were done so using patient's home equipment, otherwise no vital signs due to distant health visit. PHYSICAL EXAMINATION: VIDEO EXAM: (if done, performed via video enabled technology) GENERAL: alert and appropriate, in no distress, well-hydrated, well nourished, and happy, smiling, interactive HEAD: normocephalic, no abnormality or lesion noted EYES: no injection and visual acuity is grossly normal NECK: full ROM, no cervical LNs noted RESPIRATORY: breathing non-labored CHEST: equal chest rise with normal respiratory effort NEUROLOGIC: no obvious deficit Health Maintenance List HEPATITIS B(3 of 3 - Hep B Twinrix 3-dose series) due on 04/27/2011 MAMMOGRAM Never done LIPID SCREEN Never done DIABETES SCREEN Never done SHINGRIX VACCINE(1 of 2) Never done INFLUENZA(1) due on 02/04/2022 COLORECTAL CANCER SCREENING due on 04/13/2022 PAP TESTING due on 04/13/2026 HPV TESTING due on 04/13/2026 DTAP,TDAP,TD(2 - Td or Tdap) due on 11/21/2029 COVID-19 VACCINE Completed HEPATITIS C SCREENING Discontinued HIV SCREENING Discontinued Data reviewed ASSESSMENT/PLAN: 1. Situational mixed anxiety and depressive disorder - ICD9: 309.28, ICD10: F43.23 (primary diagnosis) Continue prn atarax and CBT Follow up 6 months 2. Migraine without status migrainosus, not intractable, unspecified migraine type - ICD9: 346.90, ICD10: G43.909 Based on symptoms and specific trigger, will tx as migraines. Patient to try maxalt with next migraine. Patient will update me over the next couple months on if this helps her. Christine Lovell PA-C documented in this encounter [facility] 02-03-2022 Miscellaneous Notes Last Office Visit: 09/30/2021 Future Office Visit: 02/17/2022 Last Medication Refill: Albuterol HFA 09/04/2021 1 inhaler 0 refill documented in this encounter [facility] 01-26-2022 Miscellaneous Notes The following approved medication requests have been transmitted electronically. Requested Prescriptions Signed Prescriptions Disp Refills baclofen (LIORESAL) 10 mg tablet 90 tablet 1 Sig: Take 1 tablet by mouth once daily. Authorizing Provider: JUAN MEZA MD Patient has been identified by name and date of : Yes Requested Prescriptions Pending Prescriptions Disp Refills baclofen (LIORESAL) 10 mg tablet 90 tablet 1 Sig: Take 1 tablet by mouth once daily. RX INSTRUCTIONS: patient completely out Patient aware RX will be sent to pharmacy. No need to notify patient. Laura Sue documented in this encounter [facility] 12-17-2021 Miscellaneous Notes Pt returned the call & was notified of message from provider, pt verbalizes understanding & says she will call back to schedule appt. Catrina Arceo LPN Left a message for pt to call the office and ask to speak to a nurse. Ritu Folres LPN Advise patient refill given just for a month. She was to f/u 4-5 weeks after last seen and she had to cancel the appt and has never rescheduled. Needs to reschedule appt to f/u on depression and anxiety Tx. The following approved medication requests have been transmitted electronically. Signed Prescriptions Disp Refills hydrOXYzine HCl (ATARAX) 10 mg tablet 90 tablet 0 Sig: Take 1 tablet by mouth three times daily as needed. ALESHIA: No Authorizing Provider: JUAN MEZA MD Patient has been identified by name and date of : Yes Patient phones for refill(s): Pending Prescriptions Disp Refills HYDROXYZINE HCL 10 MG TABLET 90 tablet 2 Sig: Take 1 tablet by mouth three times daily as needed. ALESHIA: No Date of last office visit in primary care: 09/30/21 Please advise. Thank you. Mary Matute LPN documented in this encounter [facility] 10-09-2021 Miscellaneous Notes Patient returns call and provider message below given. Patient verbalizes understanding. Juana Godoy RN Attempted to contact patient; no answer; voicemail full. Adele Corona MA Advise patient if sinus symptoms seem resolved then go ahead and stop. Patient calling she was put on antibiotic rx (Cefadroxil) on 09/30 for sinusitis, she has 3 days left of rx. Patient said she is taking it with food and her stomach is bothering her, nausea and diarrhea. Patient asking if she can just stop taking the medication? She is not taking any probiotic. Please advise documented in this encounter [facility] 10-07-2021 History of Presen t illness Narrative Please review External Physical Therapy Evaluation Scan on 10/06/2021 10:15 PM by External Provider: Consultation - PT/OT/Speech Marla Gonzales documented in this encounter [facility] 09-30-2021 History of Presen t illness Narrative Chief Complaint Patient presents with: Depression: medication HPI Mai Wharton is a 51 year old female who presents here today for Above Complaints.. She had discussed with her MANAGER PHOTO and was started on lexapro at 10 mg and increased to 20 mg a day with no improvement and would like to try something different. There is a lot of stress in the home between her and her daughter. Daughter has been on Zoloft and has done well with this. Would like to try this. Past medical history, appointments, medications, allergies reviewed. Previous Medical History PAST MEDICAL HISTORY Diagnosis Date Anxiety and depression 04/13/2021 GERD (gastroesophageal reflux disease) 06/03/2009 Uses PRN prevacid as of 2008 Heartburn Idiopathic scoliosis 04/13/2021 Previous Surgical History PAST SURGICAL HISTORY Procedure Laterality Date EXTRACTION ERUPTED TOOTH U/S EXAM PERFUSION SOFT TISSUE MASS 12/19/2017 excision soft tissue mass pf posterior back Family History FAMILY HISTORY Problem Relation Age of Onset Cancer Mother cholangiocarcinoma Colon Cancer Other none Coronary Artery Disease Other none Diabetes Other none Patient Allergies ALLERGIES Allergen Reactions Bees Unknown Hayfever [Homeopath* Unknown Current Medications Current Outpatient Medications on File Prior to Visit Medication Sig albuterol HFA (VENTOLIN HFA) 90 mcg/actuation inhaler Inhale 2 Puffs as instructed every 4 hours as needed. Inhale by mouth as instructed. EPINEPHrine (EPIPEN) 0.3 mg/0.3 mL auto-injector Inject 0.3 mL subcutaneously as needed. traZODone (DESYREL) 50 mg tablet Take 1 tablet by mouth daily at bedtime. baclofen (LIORESAL) 10 mg tablet Take 1 tablet by mouth once daily. escitalopram oxalate (LEXAPRO) 20 mg tablet Take 1 tablet by mouth once daily. lansoprazole (PREVACID) 15 mg capsule Take 15 mg by mouth once daily. taking as necessary No current facility-administered medications on file prior to visit. Social History Social History Tobacco Use Smoking status: Never Smoker Smokeless tobacco: Never Used Vaping Use Vaping Use: Never used Substance Use Topics Alcohol use: Yes Comment: seldom Drug use: No Review of Symptoms REVIEW OF SYSTEMS See HPI Has been having pressure in the right ethmoid area for past week. Has been having green nasal drainage. Tried OTC antihistamine, sinus massage and the Netti pot with no relief. EXAM: BP 130/86 Pulse 80 Resp 12 Wt 84.8 kg (187 lb) LMP 03/25/2021 (Within Days) BMI 33.13 kg/m General Appearance: Well appearing, alert, in no acute distress, well-hydrated, well nourished.. Neck: Supple, no adenopathy; thyroid symmetric, normal size, no bruits. Lungs: Lungs clear to auscultation. No wheezing, rhonchi, rales.. Heart: RRR without murmur, gallop, or rubs. No ectopy. Face: has discomfort over the right ethmoid area. Health Maintenance List MAMMOGRAM Never done LIPID SCREEN Never done DIABETES SCREEN Never done SHINGRIX VACCINE(1 of 2) Never done COLORECTAL CANCER SCREENING due on 04/13/2022 PAP TESTING due on 04/13/2026 HPV TESTING due on 04/13/2026 DTAP,TDAP,TD(2 - Td or Tdap) due on 11/21/2029 INFLUENZA Completed COVID-19 VACCINE Completed M[employer]INGOC[employer] Aged Out HEPATITIS C SCREENING Discontinued HIV SCREENING Discontinued Data reviewed A/P ASSESSMENT/PLAN: 1. Anxiety and depression - ICD9: 300.00, 311, ICD10: F41.9, F32.A (primary diagnosis) - will start zoloft 25 mg a day for 2 weeks then one a day along with atarax 10 mg TID prn 2. Acute ethmoidal sinusitis, recurrence not specified - ICD9: 461.2, ICD10: J01.20 - Will begin treatment with as per antibiotic as written, see orders Pending Prescriptions Disp Refills CEFADROXIL 500 MG CAPSULE 20 capsule 0 Sig: Take 1 capsule by mouth twice daily. F/u 4-5 weeks med check Juan Meza MD documented in this encounter [facility] 09-11-2021 Miscellaneous Notes Order faxed to [facility] Kayley Sam Ma Order placed. Patient is wanting PT for bilateral shoulders pain. Please place order and will fax to [facility]. Patient aware will need to call next week to schedule Kayley Sam Ma Patient was left message to call office back. Kayley Sam Ma Please verify with patient that what she wants isn't Physical Therapy at [facility] and not Physio therapy. Patient reports she having episodes of muscles spasms in left shoulder, trapezoid muscle to base of neck, and base of spine. Reports she has scoliosis. Does not want to take baclofen (stopped taking). Would like to try physio therapy at [facility]. Asking doctor to please send order to [facility]. documented in this encounter [facility] 09-04-2021 Miscellaneous Notes Left message of same on pt's vm. Also sent message of same to pt via . Freddy Lovelace LPN Advise patient she can try either claritin, zyrtec or allegrea. Pt phones office requesting refill of Ventolin inhaler and Epi pen. Rx(s) pending. Pt also states she is starting with sinus infection d/t allergies. Sx started Tuesday. She notes redness, tenderness, warmth above R cheek and R eye. She states R eye is puffy. She has been taking otc Zyrtec without benefit. Pt denies L eye redness, swelling. She states she knows this is in relation to her allergies because this is how she reacts because she sleeps on her R side. Advised pt that she would need to schedule an appt to be seen to evaluate her sx. Pt declines appt. She states she is not asking for an antibiotic, she only wants to know what otc antihistamines she can take. She has not tried Benadryl yet. Please advise. Robert Unger LPN documented in this encounter [facility] 06-23-2021 Miscellaneous Notes 2nd attempt. Message left for patient to contact office to schedule physical after 04/13/22. Recall letter also added. Left message for patient to return call to office Pao Mercedes Cma If able patient need complete PE set up on or after 04/13/2022. The following approved medication requests have been transmitted electronically. Signed Prescriptions Disp Refills baclofen (LIORESAL) 10 mg tablet 20 tablet 1 Sig: Take 1 tablet by mouth three times daily as needed (muscle spasms). ALESHIA: No Authorizing Provider: JUAN MEZA MD Patient has been identified by name and date of : Yes Patient phones for refill(s): Pending Prescriptions Disp Refills BACLOFEN 10 MG TABLET 20 tablet 1 Sig: Take 1 tablet by mouth three times daily as needed (muscle spasms). ALESHIA: No Date of last office visit with pcp: 04-13-21. Next appt: none Last 2 Encounter Wt Readings: Date: Wt: 04/13/2021 81.2 kg (179 lb) 04/13/2021 81.2 kg (179 lb) Previous labs/tests for medication: Blood Pressure: No results found for: BUN, NA Last 1 Encounter BP Readings: Date: BP: 04/13/2021 130/88 Liver Function: No results found for: ALT, AST Please advise. Thank you. Kelechi Lynn RN documented in this encounter [facility] Evaluation note Diagnosis Acute pain of both shoulders- Primary [facility] noteNo assessment information availableWMarymount Hospital Work Phone: Evaluation note* Diagnosis Anxiety and depression- Primary Dysthymic disorder Acute ethmoidal sinusitis, recurrence not specified [facility]* Diagnosis Muscle tension headache Tension headache [facility]* Diagnosis Muscle tension headache Tension headache Back spasm Other symptoms referable to back documented [facility]* Diagnosis Situational mixed anxiety and depressive disorder- Primary Adjustment disorder with mixed anxiety and depressed mood Migraine without status migrainosus, not intractable, unspecified migraine type [facility]* Diagnosis Migraine without status migrainosus, not intractable, unspecified migraine type- Primary Muscle tension headache Tension headache [facility]* Diagnosis Migraine without status migrainosus, not intractable, unspecified migraine type- Primary Need for influenza vaccination Need for prophylactic vaccination and inoculation against influenza [facility]* Diagnosis Encounter for screening mammogram for breast cancer documented [facility]* Diagnosis Lipoma of torso- Primary [facility] Diagnosis Lipoma of torso- Primary [facility]* Diagnosis Lipoma of torso- Primary [facility]* Diagnosis Muscle tension headache Tension headache [facility]* Diagnosis Well adult exam- Primary Routine general medical examination at a health care facility Gastroesophageal reflux disease without esophagitis Esophageal reflux Migraine without status migrainosus, not intractable, unspecified migraine type Anxiety and depression Dysthymic disorder Screening for diabetes mellitus (DM) Screening for diabetes mellitus Need for vaccination Need for prophylactic vaccination and inoculation against unspecified single disease Screening for colon cancer Special screening for malignant neoplasms, colon Generalized anxiety disorder Encounter for lipid screening for cardiovascular disease Screening for lipoid disorders Muscle tension headache Tension headache [facility]* Diagnosis Encounter for screening mammogram for breast cancer documented [facility]* Diagnosis Toe injury, right, initial encounter- Primary [facility]* Diagnosis Muscle tension headache Tension headache [facility] Diagnosis Acute cough- Primary Wheezing Acute cough [facility]* Diagnosis Generalized anxiety disorder [facility]* Diagnosis Acute cough [facility]* Diagnosis Toe injury, right, initial encounter documented [facility]* Diagnosis Encounter for screening mammogram for breast cancer documented [facility]* Diagnosis Acute cystitis with hematuria- Primary Acute cystitis Dysuria Encounter for screening for diabetes mellitus Screening for diabetes mellitus Encounter for lipid screening for cardiovascular disease Screening for lipoid disorders Screening for colon cancer Special screening for malignant neoplasms, colon [facility]* Diagnosis Family history of hemochromatosis- Primary Family history of other endocrine and metabolic diseases documented [facility]* Diagnosis Dysuria- Primary [facility]* Diagnosis Well adult exam- Primary Routine general medical examination at a health care facility Migraine without status migrainosus, not intractable, unspecified migraine type Anxiety and depression Dysthymic disorder Need for vaccination Need for prophylactic vaccination and inoculation against unspecified single disease Encounter for screening mammogram for breast cancer Wheezing H/O bee sting allergy Allergy to insects and arachnids Screening for colon cancer Special screening for malignant neoplasms, colon Elevated hemoglobin A1c Other abnormal blood chemistry Neck pain Cervicalgia [facility] Diagnosis Wheezing [facility] Diagnosis Cold sores- Primary [facility]* Diagnosis Muscle tension headache Tension headache [facility] Additional Instructions You received IV fluids, Compazine, Benadryl, and Toradol today for your migraine headache. Rest today and follow-up with your primary care physician.[facility] Work Phone: Reason for referral (narrative)* Diagnostic Procedure Only (Routine) - Pending Review Specialty Diagnoses / Procedures Referred By Verito whyte Referred To Contact [facility] Diagnoses Encounter for screening mammogram for breast cancer Procedures STEPH SCREENING SCREENING MAMMOGRAPHY BI 2-[place] [address] [place] [id number] [facility] [address] [place] [address] Referral ID Status Reason Start Date Expiration Date Visits Requested Visits Authorized [id number] Pending Review Auto-Generat ed Referral 2 04/16/2023 1 1 [facility] for referral (narrative)* Diagnostic Procedure Only (Routine) - Pending Review Specialty Diagnoses / Procedures Referred By Verito whyte Referred To Contact [facility] Diagnoses Encounter for screening mammogram for breast cancer Procedures STEPH SCREENING W KEL SCREENING DIGITAL BREAST TOMOSYNTHESIS BI SCREENING MAMMOGRAPHY BI 2-VIEW BREAST INC CAD Juna Meza MD [address] [place] [address] [facility] [address] [place] [address] Referral ID Status Reason Start Date Expiration Date Visits Requested Visits Authorized [id number] Pending Review Auto-Generat ed Referral 06/08/2023 07/07/2024 1 1 [facility] for referral (narrative)* Diagnostic Procedure Only (Urgent) - Closed Specialty Diagnoses / Procedures Referred By Contac t Referred To Contact [facility] Diagnoses Toe injury, right, initial encounter Procedures XR TOE AP/LAT/OBL RIGHT RADEX TOE MINIMUM 2 VIEWS Shakira Plummer APRN.DENTAL CERAMIST ASSISTANT [address] [place] [address] [place] [address] Referral ID Status Reason Start Date Expiration Date V isits Requested Visits Authorized [id number] Closed Auto-Generate d Referral 08/08/2023 09/06/2024 1 1 [facility] for referral (narrative)* Diagnostic Procedure Only (Urgent) - Closed Specialty Diagnoses / Procedures Referred By Contac t Referred To Contact [facility] IMAGING Diagnoses Toe injury, right, initial encounter Procedures XR TOE AP/LAT/OBL RIGHT RADEX TOE MINIMUM 2 VIEWS Shakira Plummer APRN.DENTAL CERAMIST ASSISTANT [address] [place] [address] [place] [address] Referral ID Status Reason Start Date Expiration Date V isits Requested Visits Authorized [id number] Closed Auto-Generate d Referral 08/08/2023 09/06/2024 1 1 [facility] for visit Narrative* Diagnostic Procedure Only (Urgent) - Closed Specialty Diagnoses / Procedures Referred By Contac t Referred To Contact [facility] IMAGING Diagnoses Toe injury, right, initial encounter Procedures XR TOE AP/LAT/OBL RIGHT RADEX TOE MINIMUM 2 VIEWS Shakira Plummer APRN.DENTAL CERAMIST ASSISTANT [address] [place] [address] [place] [address] Referral ID Status Reason Start Date Expiration Date V isits Requested Visits Authorized [id number] Closed Auto-Generate d Referral 08/08/2023 09/06/2024 1 1 [facility] Summary Purpose Family History No Family History Records FoundNo Family History Records FoundNo Family History Records Found Advance Directives No Advanced Directives Records FoundDocuments on File Type Date Recorded Patient Contract Programmer Expl anation Advance Directive(s) 12/19/2017 7:06 AM Advance Directive(s) 12/16/2017 2:46 PM Documents on File Type Date Recorded Patient Contract Programmer Expl anation Advance Directive(s) 12/19/2017 7:06 AM Advance Directive(s) 12/16/2017 2:46 PM Advance Directive Response Recorded Date/ Time Living Will Yes September 27, 2021 10:11pm Power of Meter Repairer Helper Yes September 27 10:11pm Advance Directive Response Recorded Date/ Time Living Will No February 25, 2022 1:00pm Power of Meter Repairer Helper No February 1:00pm Reason for Referral Specialty Diagnoses / Procedures Referred By Contac t Referred To Contact [facility] Diagnoses Acute pain of both shoulders Procedures CONSULT TO PHYSICAL THERAPY PHYSICAL THERAPY EVALUATION HIGH COMPLEX 45 MINS Juan Meza MD [address] [place] [address] [address] Referral ID Status Reason Start Date Expiration Date Visits Requested Visits Authorized [id number] Pending Review Auto-Generat ed Referral 09/11/2021 09/11/2022 1 1 Specialty Diagnoses / Procedures Referred By Contac t Referred To Contact [facility] Diagnoses Migraine without status migrainosus, not intractable, unspecified migraine type Muscle tension headache Procedures CONSULT TO PHYSICAL THERAPY PHYSICAL THERAPY EVALUATION HIGH COMPLEX 45 MINS Christine Lovell PA-C [address] [place] [address] [facility] [address] [address] Referral ID Status Reason Start Date Expiration Date Visits Requested Visits Authorized [id number] Pending Review Auto-Generat ed Referral 03/16/2023 1 1 Specialty Diagnoses / Procedures Referred By Contac t Referred To Contact [facility] Diagnoses Migraine without status migrainosus, not intractable, unspecified migraine type Muscle tension headache Procedures CONSULT TO PHYSICAL THERAPY PHYSICAL THERAPY EVALUATION HIGH COMPLEX 45 MINS Juan Meza MD [address] [place] [address] [facility] [place] [address] [place] [address] Referral ID Status Reason Start Date Expiration Date Visits Requested Visits Authorized [id number] Pending Review Auto-Generat ed Referral 02/10/2023 02/10/2024 1 1 Specialty Diagnoses / Procedures Referred By Verito t Referred To Contact General Surgery Diagnoses Screening for colon cancer Procedures CONSULT TO GENERAL SURGERY OFFICE/OUTPATIENT NEW HIGH MDM 60-74 MINUTES Juan Meza MD [address] [place] [address] Referral ID Status Reason Start Date Expiration Date Visits Requested Visits Authorized [id number] Authorized PCP Requested Referral 02/10/2023 02/10/2024 1 1 Chief Complaint and Reason for Visit Chief Complaint HAD INJURY MENTAL HEALTH Chief Complaint headache Additional Source Comments INFORMATION SOURCE (unrecogn ized section and content) DATE CREATED AUTHOR 12/23/2017 [facility] DATE CREATED AUTHOR AUTHOR'S ORGANIZ ATION 10/10/2024 [facility] DATE CREATED AUTHOR AUTHOR'S ORGANIZ ATION 01/29/2025 [facility] Source Comments (unrecognize d section and content) In the event this informatio n is protected by the Federal Confidentiality of Alcohol and Drug Abuse Patient Records regulations: The Federal rules restrict any use of the information to criminally investigate or prosecute any alcohol or drug abuse patient.[facility] the event this information is protected by the Federal Confidentiality of Alcohol and Drug Abuse Patient Records regulations: The Federal rules restrict any use of the information to criminally investigate or prosecute any alcohol or drug abuse patient.[facility] the event this information is protected by the Federal Confidentiality of Alcohol and Drug Abuse Patient Records regulations: The Federal rules restrict any use of the information to criminally investigate or prosecute any alcohol or drug abuse patient.[facility] the event this information is protected by the Federal Confidentiality of Alcohol and Drug Abuse Patient Records regulations: The Federal rules restrict any use of the information to criminally investigate or prosecute any alcohol or drug abuse patient.[facility] the event this information is protected by the Federal Confidentiality of Alcohol and Drug Abuse Patient Records regulations: The Federal rules restrict any use of the information to criminally investigate or prosecute any alcohol or drug abuse patient.[facility] the event this information is protected by the Federal Confidentiality of Alcohol and Drug Abuse Patient Records regulations: The Federal rules restrict any use of the information to criminally investigate or prosecute any alcohol or drug abuse patient.[facility] the event this information is protected by the Federal Confidentiality of Alcohol and Drug Abuse Patient Records regulations: The Federal rules restrict any use of the information to criminally investigate or prosecute any alcohol or drug abuse patient.[facility] the event this information is protected by the Federal Confidentiality of Alcohol and Drug Abuse Patient Records regulations: The Federal rules restrict any use of the information to criminally investigate or prosecute any alcohol or drug abuse patient.[facility] the event this information is protected by the Federal Confidentiality of Alcohol and Drug Abuse Patient Records regulations: The Federal rules restrict any use of the information to criminally investigate or prosecute any alcohol or drug abuse patient.[facility] Hospital[facility] the event this information is protected by the Federal Confidentiality of Alcohol and Drug Abuse Patient Records regulations: The Federal rules restrict any use of the information to criminally investigate or prosecute any alcohol or drug abuse patient.[facility] Hospital[facility] the event this information is protected by the Federal Confidentiality of Alcohol and Drug Abuse Patient Records regulations: The Federal rules restrict any use of the information to criminally investigate or prosecute any alcohol or drug abuse patient.[facility] HospitalIn the event this information is protected by the Federal Confidentiality of Alcohol and Drug Abuse Patient Records regulations: The Federal rules restrict any use of the information to criminally investigate or prosecute any alcohol or drug abuse patient.[facility] HospitalIn the event this information is protected by the Federal Confidentiality of Alcohol and Drug Abuse Patient Records regulations: The Federal rules restrict any use of the information to criminally investigate or prosecute any alcohol or drug abuse patient.[facility] HospitalIn the event this information is protected by the Federal Confidentiality of Alcohol and Drug Abuse Patient Records regulations: The Federal rules restrict any use of the information to criminally investigate or prosecute any alcohol or drug abuse patient.[facility] HospitalIn the event this information is protected by the Federal Confidentiality of Alcohol and Drug Abuse Patient Records regulations: The Federal rules restrict any use of the information to criminally investigate or prosecute any alcohol or drug abuse patient.[facility] HospitalIn the event this information is protected by the Federal Confidentiality of Alcohol and Drug Abuse Patient Records regulations: The Federal rules restrict any use of the information to criminally investigate or prosecute any alcohol or drug abuse patient.[facility] HospitalIn the event this information is protected by the Federal Confidentiality of Alcohol and Drug Abuse Patient Records regulations: The Federal rules restrict any use of the information to criminally investigate or prosecute any alcohol or drug abuse patient.[facility] HospitalIn the event this information is protected by the Federal Confidentiality of Alcohol and Drug Abuse Patient Records regulations: The Federal rules restrict any use of the information to criminally investigate or prosecute any alcohol or drug abuse patient.[facility] HospitalIn the event this information is protected by the Federal Confidentiality of Alcohol and Drug Abuse Patient Records regulations: The Federal rules restrict any use of the information to criminally investigate or prosecute any alcohol or drug abuse patient.[facility] HospitalIn the event this information is protected by the Federal Confidentiality of Alcohol and Drug Abuse Patient Records regulations: The Federal rules restrict any use of the information to criminally investigate or prosecute any alcohol or drug abuse patient.[facility] HospitalIn the event this information is protected by the Federal Confidentiality of Alcohol and Drug Abuse Patient Records regulations: The Federal rules restrict any use of the information to criminally investigate or prosecute any alcohol or drug abuse patient.[facility] HospitalIn the event this information is protected by the Federal Confidentiality of Alcohol and Drug Abuse Patient Records regulations: The Federal rules restrict any use of the information to criminally investigate or prosecute any alcohol or drug abuse patient.[facility] HospitalIn the event this information is protected by the Federal Confidentiality of Alcohol and Drug Abuse Patient Records regulations: The Federal rules restrict any use of the information to criminally investigate or prosecute any alcohol or drug abuse patient.[facility] HospitalIn the event this information is protected by the Federal Confidentiality of Alcohol and Drug Abuse Patient Records regulations: The Federal rules restrict any use of the information to criminally investigate or prosecute any alcohol or drug abuse patient.[facility] HospitalIn the event this information is protected by the Federal Confidentiality of Alcohol and Drug Abuse Patient Records regulations: The Federal rules restrict any use of the information to criminally investigate or prosecute any alcohol or drug abuse patient.[facility] HospitalIn the event this information is protected by the Federal Confidentiality of Alcohol and Drug Abuse Patient Records regulations: The Federal rules restrict any use of the information to criminally investigate or prosecute any alcohol or drug abuse patient.[facility] HospitalIn the event this information is protected by the Federal Confidentiality of Alcohol and Drug Abuse Patient Records regulations: The Federal rules restrict any use of the information to criminally investigate or prosecute any alcohol or drug abuse patient.[facility] HospitalIn the event this information is protected by the Federal Confidentiality of Alcohol and Drug Abuse Patient Records regulations: The Federal rules restrict any use of the information to criminally investigate or prosecute any alcohol or drug abuse patient.[facility] HospitalIn the event this information is protected by the Federal Confidentiality of Alcohol and Drug Abuse Patient Records regulations: The Federal rules restrict any use of the information to criminally investigate or prosecute any alcohol or drug abuse patient.[facility] HospitalIn the event this information is protected by the Federal Confidentiality of Alcohol and Drug Abuse Patient Records regulations: The Federal rules restrict any use of the information to criminally investigate or prosecute any alcohol or drug abuse patient.[facility] HospitalIn the event this information is protected by the Federal Confidentiality of Alcohol and Drug Abuse Patient Records regulations: The Federal rules restrict any use of the information to criminally investigate or prosecute any alcohol or drug abuse patient.[facility] HospitalIn the event this information is protected by the Federal Confidentiality of Alcohol and Drug Abuse Patient Records regulations: The Federal rules restrict any use of the information to criminally investigate or prosecute any alcohol or drug abuse patient.[facility] HospitalIn the event this information is protected by the Federal Confidentiality of Alcohol and Drug Abuse Patient Records regulations: The Federal rules restrict any use of the information to criminally investigate or prosecute any alcohol or drug abuse patient.[facility] HospitalIn the event this information is protected by the Federal Confidentiality of Alcohol and Drug Abuse Patient Records regulations: The Federal rules restrict any use of the information to criminally investigate or prosecute any alcohol or drug abuse patient.[facility] HospitalIn the event this information is protected by the Federal Confidentiality of Alcohol and Drug Abuse Patient Records regulations: The Federal rules restrict any use of the information to criminally investigate or prosecute any alcohol or drug abuse patient.[facility] HospitalIn the event this information is protected by the Federal Confidentiality of Alcohol and Drug Abuse Patient Records regulations: The Federal rules restrict any use of the information to criminally investigate or prosecute any alcohol or drug abuse patient.[facility] HospitalIn the event this information is protected by the Federal Confidentiality of Alcohol and Drug Abuse Patient Records regulations: The Federal rules restrict any use of the information to criminally investigate or prosecute any alcohol or drug abuse patient.[facility] HospitalIn the event this information is protected by the Federal Confidentiality of Alcohol and Drug Abuse Patient Records regulations: The Federal rules restrict any use of the information to criminally investigate or prosecute any alcohol or drug abuse patient.[facility] HospitalIn the event this information is protected by the Federal Confidentiality of Alcohol and Drug Abuse Patient Records regulations: The Federal rules restrict any use of the information to criminally investigate or prosecute any alcohol or drug abuse patient.[facility] HospitalIn the event this information is protected by the Federal Confidentiality of Alcohol and Drug Abuse Patient Records regulations: The Federal rules restrict any use of the information to criminally investigate or prosecute any alcohol or drug abuse patient.[facility] HospitalIn the event this information is protected by the Federal Confidentiality of Alcohol and Drug Abuse Patient Records regulations: The Federal rules restrict any use of the information to criminally investigate or prosecute any alcohol or drug abuse patient.[facility] HospitalIn the event this information is protected by the Federal Confidentiality of Alcohol and Drug Abuse Patient Records regulations: The Federal rules restrict any use of the information to criminally investigate or prosecute any alcohol or drug abuse patient.[facility] HospitalIn the event this information is protected by the Federal Confidentiality of Alcohol and Drug Abuse Patient Records regulations: The Federal rules restrict any use of the information to criminally investigate or prosecute any alcohol or drug abuse patient.[facility] HospitalIn the event this information is protected by the Federal Confidentiality of Alcohol and Drug Abuse Patient Records regulations: The Federal rules restrict any use of the information to criminally investigate or prosecute any alcohol or drug abuse patient.[facility] HospitalIn the event this information is protected by the Federal Confidentiality of Alcohol and Drug Abuse Patient Records regulations: The Federal rules restrict any use of the information to criminally investigate or prosecute any alcohol or drug abuse patient.[facility] HospitalIn the event this information is protected by the Federal Confidentiality of Alcohol and Drug Abuse Patient Records regulations: The Federal rules restrict any use of the information to criminally investigate or prosecute any alcohol or drug abuse patient.[facility] HospitalIn the event this information is protected by the Federal Confidentiality of Alcohol and Drug Abuse Patient Records regulations: The Federal rules restrict any use of the information to criminally investigate or prosecute any alcohol or drug abuse patient.[facility] HospitalIn the event this information is protected by the Federal Confidentiality of Alcohol and Drug Abuse Patient Records regulations: The Federal rules restrict any use of the information to criminally investigate or prosecute any alcohol or drug abuse patient.[facility] HospitalIn the event this information is protected by the Federal Confidentiality of Alcohol and Drug Abuse Patient Records regulations: The Federal rules restrict any use of the information to criminally investigate or prosecute any alcohol or drug abuse patient.[facility] HospitalIn the event this information is protected by the Federal Confidentiality of Alcohol and Drug Abuse Patient Records regulations: The Federal rules restrict any use of the information to criminally investigate or prosecute any alcohol or drug abuse patient.[facility] HospitalIn the event this information is protected by the Federal Confidentiality of Alcohol and Drug Abuse Patient Records regulations: The Federal rules restrict any use of the information to criminally investigate or prosecute any alcohol or drug abuse patient.[facility] HospitalIn the event this information is protected by the Federal Confidentiality of Alcohol and Drug Abuse Patient Records regulations: The Federal rules restrict any use of the information to criminally investigate or prosecute any alcohol or drug abuse patient.[facility] HospitalIn the event this information is protected by the Federal Confidentiality of Alcohol and Drug Abuse Patient Records regulations: The Federal rules restrict any use of the information to criminally investigate or prosecute any alcohol or drug abuse patient.[facility] HospitalIn the event this information is protected by the Federal Confidentiality of Alcohol and Drug Abuse Patient Records regulations: The Federal rules restrict any use of the information to criminally investigate or prosecute any alcohol or drug abuse patient.[facility] HospitalIn the event this information is protected by the Federal Confidentiality of Alcohol and Drug Abuse Patient Records regulations: The Federal rules restrict any use of the information to criminally investigate or prosecute any alcohol or drug abuse patient.[facility] HospitalIn the event this information is protected by the Federal Confidentiality of Alcohol and Drug Abuse Patient Records regulations: The Federal rules restrict any use of the information to criminally investigate or prosecute any alcohol or drug abuse patient.[facility] HospitalIn the event this information is protected by the Federal Confidentiality of Alcohol and Drug Abuse Patient Records regulations: The Federal rules restrict any use of the information to criminally investigate or prosecute any alcohol or drug abuse patient.[facility] Care Teams (unrecognized sec tion and content) Life Manager Relationship Specialty Start Date End Date Juan Meza MD [address] [place] [id number] PCP - General Family Practice 06/02/21 Life Manager Relationship Specialty Start Date End Date Juan Meza MD [address] [place] [address] PCP - General Family Practice 06/02/21 Life Manager Relationship Specialty Start Date End Date Juan Meza MD [address] [place] [address] PCP - General Family Practice 06/02/21 Life Manager Relationship Specialty Start Date End Date Juan Meza MD [address] [place] [address] PCP - General Family Practice 06/02/21 Life Manager Relationship Specialty Start Date End Date Juan Meza MD [address] [place] [address] PCP - General Family Practice 06/02/21 Life Manager Relationship Specialty Start Date End Date Juan Meza MD [address] [place] [address] PCP - General Family Practice 06/02/21 Life Manager Relationship Specialty Start Date End Date Juan Meza MD [address] [facility] [place] [address] PCP - General Family Practice 06/02/21 Life Manager Relationship Specialty Start Date End Date Juan Meza MD [facility] [facility] [place] [address] PCP - General Family Practice 06/02/21 Life Manager Relationship Specialty Start Date End Date Juan Meza MD [address] [place] [address], [place] [address] PCP - General Family Practice 06/02/21 Life Manager Relationship Specialty Start Date End Date Juan Meza MD [address] [place] [address], [place] [address] PCP - General Family Practice 06/02/21 Life Manager Relationship Specialty Start Date End Date Juan Meza MD [address] [place] [address], [place] [address] PCP - General Family Practice 06/02/21 Life Manager Relationship Specialty Start Date End Date Juan Meza MD [address] [place] [address], [place] [address] PCP - General Family Medicine 06/02/21 Life Manager Relationship Specialty Start Date End Date Juan Meza MD [address] [place] [address], [place] [address] PCP - General Family Medicine 06/02/21 Life Manager Relationship Specialty Start Date End Date Juan Meza MD [address] [place] [address], [place] [address] PCP - General Family Medicine 06/02/21 Life Manager Relationship Specialty Start Date End Date Juan Meza MD [address] [place] [address], [place] [address] PCP - General Family Medicine 06/02/21 Life Manager Relationship Specialty Start Date End Date Juan Meza MD [address] [place] [address] PCP - General Family Medicine 06/02/21 Life Manager Relationship Specialty Start Date End Date Juan Meza MD [address] [place] [address] PCP - General Family Medicine 06/02/21 Life Manager Relationship Specialty Start Date End Date Juan Meza MD [address] [place] [address] PCP - General Family Medicine 06/02/21 Life Manager Relationship Specialty Start Date End Date Juan Meza MD [address] [place] [address] PCP - General Family Medicine 06/02/21 Life Manager Relationship Specialty Start Date End Date Juan Meza MD [address] [place] [address] PCP - General Family Medicine 06/02/21 Life Manager Relationship Specialty Start Date End Date Juan Meza MD [address] [place] [address] PCP - General Family Medicine 06/02/21 Life Manager Relationship Specialty Start Date End Date Juan Meza MD [address] [place] [address] PCP - General Family Medicine 06/02/21 Life Manager Relationship Specialty Start Date End Date Juan Meza MD [address] [place] [address] PCP - General Family Medicine 06/02/21 Life Manager Relationship Specialty Start Date End Date Juan Meza MD [address] [place] [address] PCP - General Family Medicine 06/02/21 Life Manager Relationship Specialty Start Date End Date Juan Meza MD [address] [place] [address] PCP - General Family Medicine 06/02/21 Life Manager Relationship Specialty Start Date End Date Juan Meza MD [address] [place] [address] PCP - General Family Medicine 06/02/21 Life Manager Relationship Specialty Start Date End Date Juan Meza MD [address] [place] [address] PCP - General Family Medicine 06/02/21 Life Manager Relationship Specialty Start Date End Date Juan Meza MD [address] [place] [address] PCP - General Family Medicine 06/02/21 Life Manager Relationship Specialty Start Date End Date Juan Meza MD [address] [place] [address] PCP - General Family Medicine 06/02/21 Life Manager Relationship Specialty Start Date End Date Juan Meza MD [address] [place] [address] PCP - General Family Medicine 06/02/21 Life Manager Relationship Specialty Start Date End Date Juan Meza MD [address] [place] [address] PCP - General Family Medicine 06/02/21 Life Manager Relationship Specialty Start Date End Date Juan Meza MD [address] [place] [address] PCP - General Family Medicine 06/02/21 Life Manager Relationship Specialty Start Date End Date Juan Meza MD [address] [place] [address] PCP - General Family Medicine 06/02/21 Faith Villa APRN.DENTAL CERAMIST ASSISTANT [address] [place] [address] Blood Bank Laboratory Technician Family Medicine 05/12/24 Christine Lovell PA-C [address] [place] [address] Blood Bank Laboratory Technician Family Medicine 05/12/24 Life Manager Relationship Specialty Start Date End Date Juan Meza MD [address] [place] [address] PCP - General Family Medicine 06/02/21 Faith Villa APRN.DENTAL CERAMIST ASSISTANT [address] [place] [address] Blood Bank Laboratory Technician Family Medicine 05/12/24 Christine Lovell PA-C [address] [place] [address] Blood Bank Laboratory Technician Family Medicine 05/12/24 Life Manager Relationship Specialty Start Date End Date Juan Meza MD [address] [place] [address] PCP - General Family Medicine 06/02/21 Faith Villa, NEWS CONTENT SPECIALIST.DENTAL CERAMIST ASSISTANT [address] [place] [address] Blood Bank Laboratory Technician Family Medicine 05/12/24 Christine Lovell PA-C [address] [place] [address] Blood Bank Laboratory Technician Family Medicine 05/12/24 Life Manager Relationship Specialty Start Date End Date Juan Meza MD [address] [place] [address] PCP - General Family Medicine 06/02/21 Faith Villa, NEWS CONTENT SPECIALIST.DENTAL CERAMIST ASSISTANT [address] [place] [address] Blood Bank Laboratory Technician Family Medicine 05/12/24 Christine Lovell PA-C [address] [place] [address] Blood Bank Laboratory Technician Family Medicine 05/12/24 Life Manager Relationship Specialty Start Date End Date Juan Meza MD [address] [place] [address] PCP - General Family Medicine 06/02/21 Faith Villa, NEWS CONTENT SPECIALIST.DENTAL CERAMIST ASSISTANT [address] [place] [address] Blood Bank Laboratory Technician Family Medicine 05/12/24 Christine Lovell PA-C [address] [place] [address] Blood Bank Laboratory Technician Family Medicine 05/12/24 Life Manager Relationship Specialty Start Date End Date Juan Meza MD [address] [place] [address] PCP - General Family Medicine 06/02/21 Faith Villa APRN.DENTAL CERAMIST ASSISTANT [address] [place] [address] Blood Bank Laboratory Technician Family Medicine 05/12/24 Christine Lovell PA-C [address] [place] [address] Blood Bank Laboratory Technician Family Medicine 05/12/24 Life Manager Relationship Specialty Start Date End Date Juan Meza MD [address] [place] [address] PCP - General Family Medicine 06/02/21 Faith Villa APRN.DENTAL CERAMIST ASSISTANT [address] [place] [address] Blood Bank Laboratory Technician Family Medicine 05/12/24 Christine Lovell PA-C [address] [place] [address] Blood Bank Laboratory Technician Family Medicine 05/12/24 Life Manager Relationship Specialty Start Date End Date Juan Meza MD [address] [place] [address] PCP - General Family Medicine 06/02/21 Faith Villa APRN.DENTAL CERAMIST ASSISTANT [address] [place] [address] Blood Bank Laboratory Technician Family Medicine 05/12/24 Christine Lovell PA-C [address] [place] [address] [facility] 05/12/24 Life Manager Relationship Specialty Start Date End Date Juan Meza MD [address] [place] [address] PCP - General Family Medicine 06/02/21 Faith Villa, CLAUDIA.DENTAL CERAMIST ASSISTANT [address] [place] [address] Blood Bank Laboratory Technician Family [facility] 05/12/24 Christine Lovell PA-C [address] [place] [address] [facility] 05/12/24 Life Manager Relationship Specialty Start Date End Date Juan Meza MD [address] [place] [address] PCP - General Family Medicine 06/02/21 Faith Villa, NEWS CONTENT SPECIALIST.DENTAL CERAMIST ASSISTANT [address] [place] [address] Blood Bank Laboratory Technician Family Medicine 05/12/24 Christine Lovell PA-C [address] [place] [address] [facility] 05/12/24 Life Manager Relationship Specialty Start Date End Date Juan Meza MD [address] [place] [address] PCP - General Family Medicine 06/02/21 Faith Villa, NEWS CONTENT SPECIALIST.DENTAL CERAMIST ASSISTANT [address] [place] [address] Blood Bank Laboratory Technician Family Medicine 05/12/24 Christine Lovell PA-C [address] [facility] [place] [address] Blood Bank Laboratory Technician Family [facility] 05/12/24 Life Manager Relationship Specialty Start Date End Date Juan Meza MD [address] [facility] [place] [address] PCP - General Family Medicine 06/02/21 Faith Villa APRN.DENTAL CERAMIST ASSISTANT [address] [place] [address] Blood Bank Laboratory Technician Family Medicine 05/12/24 Christine Lovell PA-C [address] [place] [address] [facility] 05/12/24 Life Manager Relationship Specialty Start Date End Date Juan Meza MD [address] [place] [address] PCP - General Family Medicine 06/02/21 Faith Villa APRN.DENTAL CERAMIST ASSISTANT [address] [place] [address] Blood Bank Laboratory Technician Family Medicine 05/12/24 Christine Lovell PA-C [address] [place] [address] Blood Bank Laboratory Technician Family Medicine 05/12/24 Life Manager Relationship Specialty Start Date End Date Juan Meza MD [address] [place] [address] PCP - General Family Medicine 06/02/21 Faith Villa APRN.DENTAL CERAMIST ASSISTANT [address] [place] [address] [facility] 11/05/24 Christine Lovell PA-C [address] [place], [place] [id number] [facility] 11/05/24 Life Manager Relationship Specialty Start Date End Date Juan Meza MD [address] [place], [place] [id number] PCP - General Family Medicine 06/02/21 Faith Villa APRN.DENTAL CERAMIST ASSISTANT [address] [place], [place] [id number] [facility] 11/05/24 Christine Lovell PA-C [address] [place] [address] [facility] 11/05/24 Reason for Visit (unrecogniz ed section and content) Reason Onset Date Comments Refill Request 09/07/2021 Reason Comments Physio therapy Reason Comments Depression medication Reason Comments External PT Evaluation Reason Onset Date Comments Refill Request 06/18/2021 Reason Comments Medication Question Reason Onset Date Comments Refill Request 12/16/2021 Reason Onset Date Comments Refill Request 01/26/2022 Reason Onset Date Comments Refill Request 02/03/2022 Reason Comments Follow Up Headache Reason Comments Appointment Reason Comments Medication Problem Headache Reason Comments Referral Request Reason Onset Date Comments Immunizations Shingles, flu Immunizations 03/19/2022 Flu vaccination Reason Comments New Patient Lipoma on back, last seen 2018 Reason Comments Procedure Excision of lipoma o n back Reason Comments UTI Reason Onset Date Comments Refill Request 07/27/2022 Refill Request 07/28/2022 Reason Onset Date Comments Refill Request 07/27/2022 Reason Comments Physical Reason Comments Toe Injury right little toe inj ury x 15 mins stuck in between boards on deck Reason Onset Date Comments Refill Request 10/03/2023 Reason Onset Date Comments Refill Request 10/06/2023 Reason Comments Cough x 4 days Reason Comments Refill Request Ativan Reason Comments Results Reason Comments ER Discharge Summary Reason Onset Date Comments Refill Request 06/04/2024 Reason Comments Outside PT Discharge Summary Reason Comments UTI Reason Onset Date Comments Results 09/16/2024 Reason Onset Date Comments Refill Request 01/17/2025 Goals (unrecognized section and content) Goals may be documented in a n alternate sectionGoals may be documented in an alternate section FOR RECORDS PERTAINING TO PATIENTS WHO ARE OR HAVE BEEN ENROLLED IN A CHEMICAL DEPENDENCY/SUBSTANCEABUSE PROGRAM, SOME INFORMATION MAY BE OMITTED. This clinical summary was aggregated from multiple sources. Caution should be exercised in using it in the provision of clinical care. This summary normalizes information from multiple sources, and as a consequence, information in this document may materially change the coding, format and clinical context of patient data. In addition, data may be omitted in some cases. CLINICAL DECISIONS SHOULD BE BASED ON THE PRIMARY CLINICAL RECORDS. [facility]. provides no warranty or guarantee of the accuracy or completeness of information in this document.
== END | disposition home or self-care (01) ==
LOC: OPBI 07:26
PROVIDERS: PCP Family Medicine; Referring Provider Family Medicine; Visit Provider Family Medicine
DX: Z12.31 Encounter for screening mammogram for malignant neoplasm of breast (principal)
CPT/HCPCS: 77063; 77067